=== PATIENT | female | born 1995 | race Caucasian/White ===

== ENCOUNTER → 2018-08-22 | Outpatient (CLI) | payer OTHER ==
[~2018-08-22] MED LIST: ACET-2267 PO; ALBU8.5H4 IH; AMOX250C PO; AZTH250C PO; Birth Control Pill; CEFD300C3 PO; CEFU500T PO; CEPH-506 PO; CEPH-507 PO; CEPH500C PO; CETI10CA PO; CETI10TA17 PO; CETI5TAB6 PO; CITA10TA PO; CODE118S2 PO; CYCL10TA9 PO; D-ME118S7 PO; FAMO-119 PO; FERR325T18 PO; FLT05NA16 NSEACH; FLUT16SP22 NS; IBUP-1773 PO; KETO10TA77 PO; LEVO500T69 PO; LORA10CA PO; METH4TAB PO; NITR-65 PO; ONDA-42 SL; ONDA4TAB8 PO; ONDN4T PO; OXYC-464 PO; PHEN200T27 PO; PRCD5U PO; PRD20T PO; PRED10TA PO; PROM50TA3 PO; RANI25VI2 IJ; SULF1TAB35 PO; TRAM50TA2 PO; [UNRECOGNIZED DRUG - CODE] PO
--- NOTE | 2018-08-22 12:47 | Diagnostic Imaging Report ---
PROCEDURE: MRI left joint lower extremity without contrast. TECHNIQUE: Multiplanar, multisequence non contrast-enhanced MRI of the left lower extremity was accomplished. INDICATION: Injury, knee pain. COMPARISON: There are no prior studies available for comparison. FINDINGS: The proton dense sagittal series shows the anterior and posterior cruciate ligaments to be intact. There is no evidence for a tear of the infrapatellar tendon, but there is an area of abnormal signal involving the infrapatellar tendon near its attachment to the patella on the proton dense fat-saturated series. This could be due to edema/inflammation due to a recent strain of the tendon. The quadriceps tendon is unremarkable. The collateral ligaments, the biceps femoris tendon, and the iliotibial band are unremarkable. There is no sign of a tear of either the medial or lateral retinaculum. There is no abnormal signal arising from either meniscus to indicate a tear. The knee joint is well maintained, and there is no abnormal signal arising from the osseous structures that would indicate bone edema or a fracture. There is no sign of a joint effusion or of a Finn's cyst. IMPRESSION: 1. The small area of altered signal about the infrapatellar tendon near its attachment to the inferior pole of the patella does suggest edema/inflammation. This may be related to a recent strain of the tendon. The tendon itself seems to be intact. 2. The other major ligaments and tendons are unremarkable for an acute abnormality. 3. There is no evidence for a tear of either meniscus. 4. There is no sign of an acute bony injury. Dictated by: Dictated on workstation # [id number]
== END ==
LOC: RAD 10:55
PROVIDERS: ATTEND Nurse Practitioner Family
DX: S89.92XA Unspecified injury of left lower leg, initial encounter (principal); R93.7 Abnormal findings on diagnostic imaging of other parts of musculoskeletal system
CPT/HCPCS: 73721

== ENCOUNTER 2018-11-07 10:31 | Outpatient (RCR) | payer BC ==
[2018-11-09] MEDS ORDERED: OXYC1TAB87 PO (13:17)
== END 2019-02-05 | disposition home or self-care (01) ==
LOC: LAB 10:31
PROVIDERS: ATTEND Family Medicine
DX: R79.89 Other specified abnormal findings of blood chemistry (principal)
CPT/HCPCS: 36415; 84702

== ENCOUNTER 2018-11-09 10:55 | Emergency (ER) | payer BC ==
[~2018-11-09] VITALS: Ht 154.9 cm; Wt 68.0 kg
--- OUTSIDE RECORDS SUMMARY | 2018-11-09 11:00 | XMS REPORT ---
Author Author DERIC DOHERTY Organization [facility] Address [address] [place] [address] Care Team Providers Care Liaison Planner Name Role Phone DERIC DOHERTY Unavailable PROBLEMS Type Condition ICD9-CM Code UZC47-II Code Onset Dates Condition Status SNOMED Code Problem control counseling Z30.9 Active 75384964 Problem Intractable migraine without status migrainosus, unspecified migraine type G43.919 Active 432982989 Problem Menorrhagia with regular cycle N92.0 Active 413452596 Problem Other specified bacterial agents as the cause of diseases classified elsewhere B96.89 Active 44027756 Problem Acute vaginitis N76.0 Active 601211470 Problem Seasonal allergic rhinitis due to other allergic trigger J30.89 Active 752018909 Problem Major depressive disorder with single episode, remission status unspecified F32.9 Active 14735009 ALLERGIES No Information ENCOUNTERS Encounter Location Date Diagnosis [place] [address] [address] Aug, Left knee injury S89.92XA [facility] [address] [place] [id number] [place] [address] Jul, [facility] [address] [place] [place] [id number] [place] [address] 1731 Jul, [facility] [address] [place] [id number] [place] [address] Jul, [facility] [address] [address] Jul, Acute pain of left knee M25.[address] [facility] [address] [place] [place] [id number] [place] [address] Jun, Intractable migraine without status migrainosus, unspecified migraine type G43.919 [place] [id number] [place] [address] May, Menorrhagia with regular cycle N92.0 and control counseling Z30.[address] [facility] [address] [address] Jan, Dysuria R30.[address] [facility] [address] [address] Dec, Seasonal allergic rhinitis, unspecified trigger J30.[address] [facility] [address] [address] 07 Nov, 2017 Viral gastroenteritis A08.[address] [facility] [address] [address] Oct, Strep pharyngitis J02.0 ; Sore throat J02.9 and Fever R50.[address] [facility] [address] [address] 15 Aug, 2017 Bronchitis J40 and Acute non-recurrent frontal sinusitis J01.[address] [address] 13 Jun, [address] [facility] [address] [address] Jun, Bronchitis J[address] [facility] [address] [address] May, Tinea corporis B35.[address] [address] Mar, Visit for TB skin test Z11.1 and Wellness examination Z00.[address] [facility] [address] [address] February, Seasonal allergic rhinitis due to other allergic trigger J30.[address] [facility] [address] [place] [address] Dec, Body aches R52 and Sinus pressure J34.89 [place] [address] [address] Nov, [place] [address] [address] Nov, depression F53 and ADHD, predominantly inattentive type F90.0 [place] [address] [address] Oct, Major depressive disorder with single episode, remission status unspecified F32.9 [facility] [place] [address] [address] Oct, Body aches R52 ; Gastroenteritis K52.9 and Dysuria R30.[address] [facility] [address] [address] Sep, Sore throat J02.9 and Strep pharyngitis J02.[address] [facility] [address] [address] Sep, Sore throat J02.9 and Bronchitis J40 [place] [address] [place] [id number] [place] [address] May, Major depressive disorder with single episode, remission status unspecified F32.9 ; Acute vaginitis N76.0 ; Other specified bacterial agents as the cause of diseases classified elsewhere B96.89 and control counseling Z30.9 [facility] [address] [place] [id number] [place] [address] May, Right upper quadrant pain R10.11 and Dysuria R30.0 [facility] [place] [id number] [place] [address] May, Sore throat J02.[address] [facility] [place] [address] [address] Mar, Abscess L02.91 [facility] [address] [address] Jul, [facility] [address] [place] [id number] [place] [address]51[address] Jul, test negative Z32.02 [facility] [address] [place] [place] [id number] [place] [address] Jul, URI (upper respiratory infection) J06.9 [facility] [address] [place] [place] [id number] [place] [address] May, Encounter for PPD test V74.1 [facility] [address] [place] [place] [id number] [place] [address]- [address] Apr, Dysuria 788.1 [facility] [address] [place] [place] [id number] [place] [address] Jan, [facility] [address] [place] [place] [id number] [place] [address] Jan, [facility] [id number] [place] [address] Dec, [facility] [address] [place] [place] [id number] [place] [address]- [address] Dec, [facility] [address] [address] Dec, [facility] [id number] [place] [address] Dec, [facility] [id number] [place] [address]- [address] Nov, [facility] [id number] [place] [address]- [address] Nov, [facility] [address] [address] Nov, [facility] [place] [facility] [address] [facility] [id number] [place] [address] 18 Nov, 2014 [facility] [place] [facility] [address] [id number] [place] [address]- 47[address] Nov, 2014 [facility] [place] [facility] [address] [id number] [place] [address]- [address] Nov, 2014 [facility] [place] [facility] [address] [id number] [place] [address]- [address] Nov, 2014 [facility] [place] [facility] [address] [id number] [place] [address]- 3677 Nov, 2014 [facility] [place] [facility] [address] [id number] [place] [address]- 0186 Nov, 2014 [facility] [place] [facility] [address] [id number] [place] [address]- 138[address] Nov, 2014 [facility] [place] [facility] [address] [id number] [place] [address]- 29[address] Oct, [facility] [place] [facility] [address] [id number] [place] [address]- 1630 Oct, [facility] [place] [facility] [address] [id number] [place] [address]- [address] Aug, [facility] [place] [facility] [address] [id number] [place] [address]- 35[address] Aug, [facility] [place] [facility] [address] [id number] [place] [address]- 97[address] Jul, [facility] [place] [facility] [address] [id number] [place] [address]- 4767 Jul, [facility] [place] [facility] [address] [id number] [place] [address]- 74[address] Jul, [facility] [place] [facility] [address] [id number] [place] [address]- 56[address] Jul, [facility] [place] [facility] [address] [id number] [place] [address]- 53[address] Jul, [facility] [place] [facility] [address] [id number] [place] [address]- 6[address] Jul, [facility] [place] [facility] [address] [id number] [place] [address]- 0934 Jul, [facility] [place] [facility] [address] [id number] [place] [address]- 9796 Jun, [facility] [place] [facility] [address] [id number] [place] [address]- 30[address] Jun, [facility] [place] [facility] [address] [id number] [place] [address]- 5752 Jun, [facility] [place] [facility] [address] [id number] [place] [address]- 8209 Jun, [facility] [place] [facility] [address] [id number] [place] [address]- 5318 Jun, [facility] [place] [facility] [address] [id number] [place] [address]- 1338 Jun, [facility] [place] [facility] [address] [id number] [place] [address]- 6724 Jun, [facility] [place] [facility] [address] [id number] [place] [address]- 4928 May, [facility] [place] [facility] [address] [id number] [place] [address]- 8216 May, [facility] [place] [facility] [address] [id number] [place] [address]- 7235 May, [facility] [place] [facility] [address] [id number] [place] [address]- 8023 May, [facility] [place] [facility] [address] [id number] [place] [address]- 9904 May, [facility] [place] [facility] [address] [id number] [place] [address]- 3025 May, [facility] [place] [facility] [address] [id number] [place] [address]- 0369 May, [facility] [address] [id number] [place] [address]- 89[address] May, [facility] [place] [facility] [address] [id number] [place] [address]- 0188 Mar, [facility] [address] [id number] [place] [address]- 9542 Mar, [facility] [place] [facility] [address] [id number] [place] [address]- 35[address] February, [facility] [address] [id number] [place] [address]- 3271 February, [facility] [address] [id number] [place] [address]- 2017 February, [facility] [address] [id number] [place] [address]- 5[address] February, [facility] [address] [id number] [place] [address]- 9595 February, [facility] [place] [facility] [address] [id number] [place] [address]- 6[address] February, [facility] [address] [id number] [place] [address]- [address]861 Jan, [facility] [place] [facility] [address] [id number] [place] [address]- 3363 Jan, [facility] [place] [facility] [address] [id number] [place] [address]- 0453 Dec, [facility] [place] [facility] [address] [id number] [place] [address]- 75[address] Dec, [facility] [place] [facility] [address] [id number] [place] [address]- 9190 Dec, [facility] [place] [facility] [address] [id number] [place] [address]- 6655 Dec, [facility] [address] [place] [id number] [address] Dec, [facility] [address] [address]- [address] Dec, [facility] [address] [address]- [address] Nov, [facility] [address] [address]- [address] Nov, [facility] [address] [address]- 10[address] Mar, [facility] [address] [address]- [address] Jan, [facility] [address] [address]- 7[address] Dec, [facility] [address] [address]- 77[address] Jul, [facility] [address] [address]- 18[address] Jul, [facility] [address] [address]- [address] Jul, IMMUNIZATIONS No Known Immunizations SOCIAL HISTORY Never Assessed REASON FOR VISIT PLAN OF CARE VITAL SIGNS MEDICATIONS Unknown Medications RESULTS Name Result Date Reference Range MRI : Knee, Left w/o contrast PROCEDURES No Known procedures INSTRUCTIONS MEDICATIONS ADMINISTERED No Known Medications MEDICAL (GENERAL) HISTORY Type Description Date Medical History asthma Medical History breast fibrocystic disease Medical History cholecystitis (05/2015) Medical History Recurrent streptococcal tonsillitis Surgical History No know Surgical history Hospitalization History childbirth Hospitalization History Lacerated kidney and liver 2008
--- OUTSIDE RECORDS SUMMARY | 2018-11-09 11:00 | XMS REPORT ---
Author Author LYNSEY JONES [facility] Address [address] [place] [address] Care Team Providers Care Television Receiver Analyzer Name Role Phone LYNSEY JONES Unavailable PROBLEMS Type Condition ICD9-CM Code SYD83-PP Code Onset Dates Condition Status SNOMED Code Problem control counseling Z30.9 Active 05704011 Problem Intractable migraine without status migrainosus, unspecified migraine type G43.919 Active 582090786 Problem Menorrhagia with regular cycle N92.0 Active 482664353 Problem Other specified bacterial agents as the cause of diseases classified elsewhere B96.89 Active 19532583 Problem Acute vaginitis N76.0 Active 720772480 Problem Seasonal allergic rhinitis due to other allergic trigger J30.89 Active 596095083 Problem Major depressive disorder with single episode, remission status unspecified F32.9 Active 29928938 ALLERGIES Substance Reaction Event Type Date Status Hydrocodone Bitartrate Unknown Drug Allergy Aug, Active ENCOUNTERS Encounter Location Date Diagnosis [facility] [id number] [place] [address]199 Aug, Patellar tendonitis of left knee M76.52 [facility] [id number] [place] [address]20 -8283 Aug, Patellar tendonitis of left knee M76.52 [facility] [id number] [place] [address] 12102- 3766 Aug, Left knee injury S89.92XA [facility] [id number] [place] [address] 12280- 0376 Jul, [facility] [id number] [place] [address] 31821- 7788 Jul, [facility] [address] [address] Jul, [place] [address] [address] Jul, Acute pain of left knee M25.562 [facility] [place] [address] [address] 20 Jun, 2018 Intractable migraine without status migrainosus, unspecified migraine type G43.919 [place] [address] [address] May, Menorrhagia with regular cycle N92.0 and control counseling Z30.9 [facility] [place] [address] [address] Jan, Dysuria R30.0 [facility] [address] [address] Dec, Seasonal allergic rhinitis, unspecified trigger J30.2 [facility] [address] [address] Nov, Viral gastroenteritis A08.4 [facility] [place] [address] [address] Oct, Strep pharyngitis J02.0 ; Sore throat J02.9 and Fever R50.9 [facility] [place] [address] [address] Aug, Bronchitis J40 and Acute non-recurrent frontal sinusitis J01.10 [place] [address] [address]- [address] Jun, [facility] [place] [address] [address]67 13 Jun, 2017 Bronchitis J40 [facility] [place] [address] 240[address] May, Tinea corporis B35.4 [place] [id number] [place] [address] 28291- 6733 Mar, Visit for TB skin test Z11.1 and Wellness examination Z00.00 [facility] [place] [id number] [place] [address]24 [address]68 February, Seasonal allergic rhinitis due to other allergic trigger J30.89 [facility] [place] [address] [address] Dec, Body aches R52 and Sinus pressure J34.89 [place] [address] [address] 2895 Nov, [address] [address] 09 Nov, 2016 depression F53 and ADHD, predominantly inattentive type F90.[address] [address]- [address] Oct, Major depressive disorder with single episode, remission status unspecified F32.9 [facility] [address] [address] Oct, Body aches R52 ; Gastroenteritis K52.9 and Dysuria R30.0 [facility] [place] [id number] [place] [address]21 -5406 Sep, Sore throat J02.9 and Strep pharyngitis J02.0 [facility] [place] [id number] [place] [address] -0233 Sep, Sore throat J02.9 and Bronchitis J40 [address] [address]- 67[address] May, Major depressive disorder with single episode, remission status unspecified F32.9 ; Acute vaginitis N76.0 ; Other specified bacterial agents as the cause of diseases classified elsewhere B96.89 and control counseling Z30.9 [facility] [place] [address] [place] [address] May, Right upper quadrant pain R10.11 and Dysuria R30.0 [facility] [id number] [place] [address]9696 May, Sore throat J02.9 [facility] [id number] [place] [address]75 -2301 Mar, Abscess L02.91 [facility] [address] 27973- 0338 Jul, [facility] [address] [address]- 9142 Jul, test negative Z32.02 [facility] [address] [address]36- 4749 Jul, URI (upper respiratory infection) J06.9 [facility] [address] 7[address]26- 4215 May, Encounter for PPD test V74.1 [facility] [address] 35333- 9273 Apr, Dysuria 788.1 [facility] [id number] [place] [address] 15803- 5547 Jan, [facility] [id number] [place] [address] 13748- 6384 Jan, [facility] [id number] [place] [address] 39412- 0300 Dec, [facility] [address] 9[address]23- [address]65 Dec, [facility] [address] 13058- 1158 Dec, [facility] [id number] [place] [address] 23821- 6241 Dec, [facility] [place] [facility] [address] [id number] [place] [address]- 7587 Nov, 2014 [facility] [place] [facility] [address] [id number] [place] [address]- 0090 Nov, 2014 [facility] [place] [facility] [address] [id number] [place] [address]- 3745 Nov, 2014 [facility] [place] [facility] [address] [id number] [place] [address]- 1281 Nov, 2014 [facility] [place] [facility] [address] [id number] [place] [address]- 9336 Nov, 2014 [facility] [place] [facility] [address] [id number] [place] [address]- 7978 Nov, 2014 [facility] [place] [facility] [address] [facility] [id number] [place] [address]- 7266 Nov, 2014 [facility] [place] [facility] [address] [id number] [place] [address]- 7978 Nov, 2014 [facility] [place] [facility] [address] [id number] [place] [address]- 0912 Nov, 2014 [facility] [place] [facility] [address] [facility] [id number] [place] [address]- 3693 Nov, [facility] [place] [facility] [address] [facility] [id number] [place] [address]- 8758 Oct, [facility] [place] [facility] [address] [id number], [place] [address] 1842 Oct, [facility] [place] [facility] [address] [id number] [place] [address]- 0039 Aug, [facility] [place] [facility] [address] [id number] [place] [address]- 1944 Aug, [facility] [place] [facility] [address] [facility] [id number] [place] [address]- 6996 Jul, [facility] [place] [facility] [address] [id number] [place] [address]- 3880 Jul, [facility] [place] [facility] [address] [id number] [place] [address]- 7020 Jul, [facility] [place] [facility] [address] [id number] [place] [address]- 7932 Jul, [facility] [place] [facility] [address] [id number] [place] [address]- 2809 Jul, [facility] [place] [facility] [address] [id number] [place] [address]- 4816 Jul, [facility] [place] [facility] [address] [id number] [place] [address]- 8620 Jul, [facility] [place] [facility] [address] [id number] [place] [address]- 4126 22 Jun, 2014 [facility] [place] [facility] [address] [id number] [place] [address]- 4409 17 Jun, 2014 [facility] [place] [facility] [address] [id number] [place] [address]- 6795 17 Jun, 2014 [facility] [place] [facility] [address] [id number] [place] [address]- 6527 11 Jun, 2014 [facility] [place] [facility] [address] [id number] [place] [address]- 2334 Jun, [facility] [place] [facility] [address] [id number] [place] [address]- 4198 Jun, [facility] [place] [facility] [address] [id number] [place] [address]- 2542 Jun, [facility] [place] [facility] [address] [id number] [place] [address]- 5478 May, [facility] [place] [facility] [address] [id number] [place] [address]- 2322 May, [facility] [place] [facility] [address] [id number] [place] [address]- 1344 May, [facility] [place] [facility] [address] [id number] [place] [address]- 5088 May, [facility] [place] [facility] [address] [id number] [place] [address]- 4408 May, [facility] [place] [facility] [address] [id number] [place] [address]- 9968 May, [facility] [place] [facility] [address] [id number] [place] [address]- 3771 May, [facility] [place] [facility] [address] [id number] [place] [address]- 5988 May, [facility] [place] [facility] [address] [id number] [place] [address]- 4103 Mar, [facility] [place] [facility] [address] [id number] [place] [address]- 4739 Mar, [facility] [place] [facility] [address] [id number] [place] [address]- 4818 February, [facility] [place] [facility] [address] [id number] [place] [address]- 9142 February, [facility] [place] [facility] [address] [id number] [place] [address]- 4696 February, [facility] [place] [facility] [address] [id number] [place] [address]- 3124 February, [facility] [place] [facility] [address] [id number] [place] [address]- 5530 February, [facility] [place] [facility] [address] [id number] [place] [address]- 4162 February, [facility] [place] [facility] [address] [id number] [place] [address]- 3572 Jan, [facility] [place] [facility] [address] [id number] [place] [address]- 8469 Jan, [facility] [place] [facility] [address] [id number], [place] [address]- 8676 Dec, [facility] [address] [facility] [id number], [place] [address]- [address]856 Dec, [facility] [address] [facility] [id number], [place] [address]- 7006 Dec, [facility] [address] [facility] [id number], [place] [address]- 9216 Dec, [facility] [address] [facility] [id number], [place] [address] 2546 Dec, [facility] [address] [facility] [id number], [place] [address]- 9176 Dec, [facility] [address] [facility] [id number], [place] [address]- 1206 Nov, [facility] [address] [facility] [id number], [place] [address]- 2656 Nov, [facility] [address] [facility] [id number], [place] [address]- 8046 Mar, [facility] [address] [facility] [id number], [place] [address]- 6706 Jan, [facility] [address] [facility] [id number], [place] [address] 2546 Dec, [facility] [address] [facility] [id number], [place] [address]- 9396 Jul, [facility] [address] [facility] [id number], [place] [address]- 6649 Jul, [facility] [address] [facility] [id number], [place] [address]- 1436 Jul, IMMUNIZATIONS No Known Immunizations SOCIAL HISTORY Never Assessed REASON FOR VISIT Pt is here for a follow up on her left knee pain. Pt reports that today she continues to have pain and has been continuing her physical therapy at this time. Pt feels that the therapy has been helping however she was up on it recently for her wedding. Following the wedding it had increased swelling and she did see decreased improvement at therapy from it. Pt has one therapy visit left that has been authorized and she stated that therapy would need a new order for visits to continue. MICHELL PLAN OF CARE Activity Details Follow Up Recheck on 09-17-18 at 10:00 am. Reason: VITAL SIGNS Height 61 in 2018-09-10 Weight 156 lbs 2018-09-10 Heart Rate 86 bpm 2018-09-10 Respiratory Rate 16 2018-09-10 BMI 29.47 kg/m2 2018-09-10 Blood pressure systolic 108 mmHg 2018-09-10 Blood pressure diastolic 62 mmHg 2018-09-10 MEDICATIONS Medication Instructions Dosage Frequency Start Date End Date Duration Status Albuterol Sulfate 90 mcg/actuation inhale 2 puffs by Inhalation route every 4 hours as needed PRN for shortness of breath Nov, Active Albuterol Sulfate (2.5 MG/3ML) 0.083% Inhalation 4 times a day 3 ml 6h Jun, Active Acetaminophen 500 MG Orally every 6 hrs 1 capsule as needed 6h Active Aleve 220 MG Orally every 12 hrs 1 tablet with food or milk as needed 12h Active Excedrin Migraine 250-250-65 MG Orally Once a day 2 tablets 24h 30 day(s) Active Tri-Sprintec 0.18/0.215/0.25 MG-35 MCG Orally Once a day 1 tablet 24h May, 28 day(s) Active RESULTS No Results PROCEDURES No Known procedures INSTRUCTIONS MEDICATIONS ADMINISTERED No Known Medications MEDICAL (GENERAL) HISTORY Type Description Date Medical History asthma Medical History breast fibrocystic disease Medical History cholecystitis (05/2015) Medical History Recurrent streptococcal tonsillitis Surgical History No Surgical history information Hospitalization History childbirth Hospitalization History Lacerated kidney and liver 2008
--- OUTSIDE RECORDS SUMMARY | 2018-11-09 11:00 | XMS REPORT ---
Author Author JET TORRES [facility] Address [address] [place] [address] Phone Unavailable Care Team Providers Care Reimbursement Consultant Name Role Phone JET TORRES Unavailable Unavailable PROBLEMS Type Condition ICD9-CM Code PKP40-NU Code Onset Dates Condition Status SNOMED Code Problem control counseling Z30.9 Active 70483948 Problem Intractable migraine without status migrainosus, unspecified migraine type G43.919 Active 125811059 Problem Menorrhagia with regular cycle N92.0 Active 929041038 Problem Other specified bacterial agents as the cause of diseases classified elsewhere B96.89 Active 24148085 Problem Acute vaginitis N76.0 Active 601502908 Problem Seasonal allergic rhinitis due to other allergic trigger J30.89 Active 949070711 Problem Major depressive disorder with single episode, remission status unspecified F32.9 Active 14887348 ALLERGIES No Information ENCOUNTERS Encounter Location Date Diagnosis [facility] [address] [address] Jul, [facility] [id number] [place] [address] Jul, [facility] [id number] [place] [address] Jul, [facility] [id number] [place] [address]690- 7151 Jul, Acute pain of left knee M25.562 [facility] [address] [address] Jun, Intractable migraine without status migrainosus, unspecified migraine type G43.919 [facility] [id number] [place] [address] May, Menorrhagia with regular cycle N92.0 and control counseling Z30.9 [facility]note 3] [address] [address] Jan, Dysuria R30.0 [facility] [address] [address] Dec, Seasonal allergic rhinitis, unspecified trigger J30.2 [facility] [address] [address] 07 Nov, 2017 Viral gastroenteritis A08.4 [facility] [address] [address] Oct, Strep pharyngitis J02.0 ; Sore throat J02.9 and Fever R50.9 [facility] [address] [address] 15 Aug, 2017 Bronchitis J40 and Acute non-recurrent frontal sinusitis J01.10 [place] [address] [address] 13 Jun, 2017 [facility] [address] [address] Jun, Bronchitis J40 [facility] [address] [address] May, Tinea corporis B35.[address] [address] 19 Mar, 2017 Visit for TB skin test Z11.1 and Wellness examination Z00.00 [facility] [address] [address] February, Seasonal allergic rhinitis due to other allergic trigger J30.89 [facility] [address] [address] Dec, Body aches R52 and Sinus pressure J34.[address] [address] Nov, [place] [id number] [place] [address]67[address] 1498 Nov, depression F53 and ADHD, predominantly inattentive type F90.0 [place] [id number] [place] [address]31[address] 1613 Oct, Major depressive disorder with single episode, remission status unspecified F32.9 [facility]note 3] [address] [address] Oct, Body aches R52 ; Gastroenteritis K52.9 and Dysuria R30.0 [facility] [place] [address] [address] Sep, Sore throat J02.9 and Strep pharyngitis J02.0 [facility] [place] [address] [address] Sep, Sore throat J02.9 and Bronchitis J40 [place] [id number] [place] [address] May, Major depressive disorder with single episode, remission status unspecified F32.9 ; Acute vaginitis N76.0 ; Other specified bacterial agents as the cause of diseases classified elsewhere B96.89 and control counseling Z30.9 [facility] [place] [id number] [place] [address] May, Right upper quadrant pain R10.11 and Dysuria R30.0 [facility] [place] [id number] [place] [address] May, Sore throat J02.9 [facility] [place] [id number] [place] [address] Mar, Abscess L02.91 [place] [id number] [place] [address]- [address] Jul, [place] [id number] [place] [address]682- 3291 Jul, test negative Z32.02 [facility] [id number] [place] [address]- 224[address] Jul, URI (upper respiratory infection) J06.9 [facility] [id number] [place] [address]- 7930 May, Encounter for PPD test V74.1 [facility] [id number] [place] [address]- 4237 Apr, Dysuria 788.1 [facility] [id number] [place] [address]40- [address] Jan, [facility] [id number] [place] [address]246- [address] Jan, [facility] [id number] [place] [address]32- 6254 Dec, [facility] [id number] [place] [address] 81658- 4479 Dec, [facility] [id number] [place] [address]30- 3347 Dec, [facility] [id number] [place] [address] 37074- 4784 Dec, [facility] [id number] [place] [address] 61233- 3271 Nov, [facility] [id number] [place] [address] 82254- 6[address] Nov, [facility] [id number] [place] [address] 98364- 9641 Nov, [facility] [id number] [place] [address] 88886- 5489 Nov, [facility] [id number] [place] [address] 57364- 6804 Nov, 2014 [facility] [place] [facility] [address] [id number] [place] [address]- [address] Nov, 2014 [facility] [place] [facility] [address] [id number] [place] [address] Nov, 2014 [facility] [place] [facility] [address] [facility] [id number] [place] [address]- 7646 Nov, 2014 [facility] [place] [facility] [address] [id number] [place] [address]- 8241 Nov, 2014 [facility] [place] [facility] [address] [id number] [place] [address]- 3000 Nov, 2014 [facility] [place] [facility] [address] [facility] [id number] [place] [address]- 8621 Oct, [facility] [place] [facility] [address] [facility] [id number] [place] [address]- 6633 Oct, [facility] [place] [facility] [address] [facility] [id number] [place] [address]- 8170 Aug, [facility] [place] [facility] [address] [facility] [id number] [place] [address]- 4610 Aug, [facility] [place] [facility] [address] [facility] [id number] [place] [address]- 0629 Jul, [facility] [place] [facility] [address] [facility] [id number] [place] [address]- 6557 Jul, [facility] [place] [facility] [address] [facility] [id number] [address]- [address] Jul, [facility] [place] [facility] [address] [id number] [place] [address]- 8085 Jul, [facility] [place] [facility] [address] [facility] [id number] [place] [address]- 1235 Jul, [facility] [place] [facility] [address] [facility] [id number] [place] [address]- 9915 Jul, [facility] [place] [facility] [address] [id number] [place] [address]- 3347 Jul, [facility] [place] [facility] [address] [id number] [place] [address]- 1056 22 Jun, 2014 [facility] [place] [facility] [address] [id number] [place] [address] 2546 17 Jun, 2013 [facility] [place] [facility] [address] [id number] [place] [address] 2546 17 Jun, 2013 [facility] [place] [facility] [address] [id number] [place] [address] 2545 Jun, 2013 [facility] [place] [facility] [address] [id number] [place] [address]- 5406 Jun, [facility] [place] [facility] [address] [id number] [place] [address]- 4886 Jun, [facility] [place] [facility] [address] [id number] [place] [address]- 4181 Jun, [facility] [place] [facility] [address] [id number] [place] [address]- 0110 May, [facility] [place] [facility] [address] [id number] [place] [address]- 9159 May, [facility] [place] [facility] [address] [id number] [place] [address]- 6181 May, [facility] [place] [facility] [address] [id number] [place] [address]- 4989 May, [facility] [place] [facility] [address] [id number] [place] [address]- 3444 May, [facility] [place] [facility] [address] [id number] [place] [address]- 7679 May, [facility] [place] [facility] [address] [id number] [place] [address]- 6812 May, [facility] [place] [facility] [address] [id number] [place] [address]- 1654 May, [facility] [place] [facility] [address] [id number] [place] [address]- 1741 Mar, [facility] [place] [facility] [address] [id number] [place] [address]- 8390 Mar, [facility] [place] [facility] [address] [id number] [place] [address]- 9865 February, [facility] [place] [facility] [address] [id number] [place] [address]- 5911 February, [facility] [place] [facility] [address] [id number] [place] [address]- 1844 February, [facility] [place] [facility] [address] [id number] [place] [address]- 5065 February, [facility] [place] [facility] [address] [id number] [place] [address]- 7186 February, [facility] [place] [facility] [address] [id number] [place] [address]- 7173 February, [facility] [place] [facility] [address] [id number] [place] [address]- 5090 Jan, [facility] [place] [facility] [address] [id number] [place] [address]- 6592 Jan, [facility] [place] [facility] [address] [id number] [place] [address]- 4384 Dec, [facility] [place] [facility] [address] [id number] [address]- 8[address] Dec, [facility] [place] [facility] [address] [id number] [place] [address]- 3884 Dec, [facility] [place] [facility] [address] [id number] [place] [address]- 4246 Dec, [facility] [place] [facility] [address] [id number] [place] [address]- 1134 Dec, [facility] [place] [facility] [address] [id number] [address]- [address] Dec, [facility] [address] [id number] [address]- 8682 Nov, [facility] [address] [address]- [address] Nov, [facility] [address] [id number] [address]- [address] Mar, [facility] [address] [address]- 9[address] Jan, [facility] [address] [address]- 2529 Dec, [facility] [address] [address]- 4895 Jul, [facility] [address] [address]- [address] Jul, [facility] [address] [id number] [address]- 9931 Jul, IMMUNIZATIONS No Known Immunizations SOCIAL HISTORY Never Assessed REASON FOR VISIT Insurance Company PLAN OF CARE VITAL SIGNS MEDICATIONS Unknown Medications RESULTS No Results PROCEDURES No Known procedures INSTRUCTIONS MEDICATIONS ADMINISTERED No Known Medications MEDICAL (GENERAL) HISTORY Type Description Date Medical History asthma Medical History breast fibrocystic disease Medical History cholecystitis (05/2015) Medical History Recurrent streptococcal tonsillitis Surgical History No know Surgical history Hospitalization History childbirth Hospitalization History Lacerated kidney and liver 2008
--- OUTSIDE RECORDS SUMMARY | 2018-11-09 11:00 | XMS REPORT ---
Author Author LYNSEY JONES [facility] Address [address] [place] [address] Care Team Providers Care Veterinary Attendant Name Role Phone LYNSEY JONES Unavailable PROBLEMS Type Condition ICD9-CM Code YGO25-WN Code Onset Dates Condition Status SNOMED Code Problem control counseling Z30.9 Active 62505686 Problem Intractable migraine without status migrainosus, unspecified migraine type G43.919 Active 735154028 Problem Menorrhagia with regular cycle N92.0 Active 503337048 Problem Other specified bacterial agents as the cause of diseases classified elsewhere B96.89 Active 45896192 Problem Acute vaginitis N76.0 Active 439533664 Problem Seasonal allergic rhinitis due to other allergic trigger J30.89 Active 798659607 Problem Major depressive disorder with single episode, remission status unspecified F32.9 Active 07694673 ALLERGIES Substance Reaction Event Type Date Status Hydrocodone Bitartrate Unknown Drug Allergy Aug, Active ENCOUNTERS Encounter Location Date Diagnosis [facility] [id number] [place] [address] Aug, [facility] [address] [address] Aug, Patellar tendonitis of left knee M76.52 [facility] [id number] [place] [address] Aug, Left knee injury S89.92XA [facility] [address] [address] Jul, [facility] [id number] [place] [address] Jul, [facility] [address] [address] Jul, [facility] [id number] [place] [address] Jul, Acute pain of left knee M25.562 [facility] [id number] [place] [address] Jun, Intractable migraine without status migrainosus, unspecified migraine type G43.919 [place] [address] [address] May, Menorrhagia with regular cycle N92.0 and control counseling Z30.9 [facility] [address] [address] Jan, Dysuria R30.0 [facility] [address] [address] Dec, Seasonal allergic rhinitis, unspecified trigger J30.2 [facility] [address] [address] Nov, Viral gastroenteritis A08.4 [facility] [address] [address] Oct, Strep pharyngitis J02.0 ; Sore throat J02.9 and Fever R50.9 [facility] [address] [address] Aug, Bronchitis J40 and Acute non-recurrent frontal sinusitis J01.10 [place] [id number] [place] [address] Jun, [facility] [address] [address] Jun, Bronchitis J40 [facility] [address] [address] 11 May, 2017 Tinea corporis B35.4 [place] [address] [address] Mar, Visit for TB skin test Z11.1 and Wellness examination Z00.00 [facility] [place] [address] [address] February, Seasonal allergic rhinitis due to other allergic trigger J30.89 [facility] [place] [address] [address] Dec, Body aches R52 and Sinus pressure J34.89 [place] [address] [address] Nov, [place] [address] [address] Nov, depression F53 and ADHD, predominantly inattentive type F90.0 [place] [address] [address] Oct, Major depressive disorder with single episode, remission status unspecified F32.9 [facility] [place] [address] [address] Oct, Body aches R52 ; Gastroenteritis K52.9 and Dysuria R30.0 [facility] [address] [address] Sep, Sore throat J02.9 and Strep pharyngitis J02.0 [facility] [place] [address] [address] Sep, Sore throat J02.9 and Bronchitis J40 [place] [address] [address] May, Major depressive disorder with single episode, remission status unspecified F32.9 ; Acute vaginitis N76.0 ; Other specified bacterial agents as the cause of diseases classified elsewhere B96.89 and control counseling Z30.9 [facility] [place] [address] [address] May, Right upper quadrant pain R10.11 and Dysuria R30.0 [facility] [address] [address] May, Sore throat J02.9 [facility] [id number] [place] [address] Mar, Abscess L02.91 [facility] [address] [address] Jul, [facility] [address] [address] Jul, test negative Z32.02 [facility] [address] [address] Jul, URI (upper respiratory infection) J06.9 [facility] [address] [address] May, Encounter for PPD test V74.1 [facility] [id number] [place] [address] Apr, Dysuria 788.1 [facility] [address] [address] Jan, [facility] [id number] [place] [address] Jan, [facility] [id number] [place] [address] Dec, [facility] [id number] [place] [address]- [address] Dec, [facility] [address] [address] Dec, [facility] [id number] [place] [address] Dec, [facility] [address] [place] [address] Nov, 2014 [facility] [place] [facility] [address] [id number] [place] [address] Nov, 2014 [facility] [place] [facility] [address] [id number] [place] [address] Nov, 2014 [facility] [place] [facility] [address] [id number] [place] [address]- [address] Nov, 2014 [facility] [place] [facility] [address] [id number] [place] [address]- 2547 Nov, 2014 [facility] [place] [facility] [address] [id number] [place] [address]- [address] Nov, 2014 [facility] [place] [facility] [address] [facility] [id number] [place] [address]- 9[address] Nov, 2014 [facility] [place] [facility] [address] [facility] [id number] [place] [address]- [address] Nov, 2014 [facility] [place] [facility] [address] [id number] [place] [address]- 1468 Nov, 2014 [facility] [place] [facility] [address] [facility] [id number] [place] [address]- 3[address] Nov, [facility] [place] [facility] [address] [facility] [id number] [place] [address]- 3703 Oct, [facility] [place] [facility] [address] [facility] [id number] [place] [address]- 25[address] Oct, [facility] [place] [facility] [address] [id number] [place] [address] Aug, [facility] [place] [facility] [address] [id number] [place] [address] 2546 Aug, [facility] [place] [facility] [address] [facility] [id number] [place] [address]- 25[address] Jul, [facility] [place] [facility] [address] [facility] [id number] [place] [address]- 6[address] Jul, [facility] [place] [facility] [address] [id number] [place] [address]- 67[address] Jul, [facility] [place] [facility] [address] [id number] [place] [address] Jul, [facility] [place] [facility] [address] [id number] [place] [address]- 8594 Jul, [facility] [place] [facility] [address] [id number] [place] [address]- 7678 Jul, [facility] [place] [facility] [address] [id number] [place] [address]- 117[address] Jul, [facility] [place] [facility] [address] [id number] [place] [address]- 66[address] 22 Jun, 2014 [facility] [place] [facility] [address] [id number] [place] [address]- [address] 17 Jun, 2014 [facility] [place] [facility] [address] [id number] [place] [address]- 5187 17 Jun, 2014 [facility] [place] [facility] [address] [id number] [place] [address]- 2508 11 Jun, 2014 [facility] [place] [facility] [address] [id number] [place] [address]- 1208 Jun, [facility] [place] [facility] [address] [id number], [place] [address] Jun, [facility] [place] [facility] [address] [id number], [place] [address]- [address] Jun, [facility] [place] [facility] [address] [id number] [place] [address]- 8951 May, [facility] [place] [facility] [address] [id number] [place] [address]- 44[address] May, [facility] [place] [facility] [address] [id number] [place] [address]- 1233 May, [facility] [place] [facility] [address] [id number] [place] [address]- 2784 May, [facility] [place] [facility] [address] [id number] [place] [address]- 3967 May, [facility] [place] [facility] [address] [id number] [place] [address]- 1103 May, [facility] [place] [facility] [address] [id number] [place] [address]- 7196 May, [facility] [place] [facility] [address] [id number] [place] [address]- 7810 May, [facility] [place] [facility] [address] [id number] [place] [address]- [address]34 Mar, [facility] [place] [facility] [address] [id number] [place] [address]- [address]295 Mar, [facility] [place] [facility] [address] [id number] [place] [address]- [address] February, [facility] [place] [facility] [address] [id number] [place] [address]- 9573 February, [facility] [place] [facility] [address] [id number] [place] [address] February, [facility] [place] [facility] [address] [id number] [place] [address]- 9663 February, [facility] [place] [facility] [address] [id number] [place] [address]- 6[address] February, [facility] [place] [facility] [address] [id number] [place] [address]- 7020 February, [facility] [place] [facility] [address] [id number] [place] [address]- 4815 Jan, [facility] [place] [facility] [address] [id number] [place] [address]- 365[address] Jan, [facility] [place] [facility] [address] [id number] [place] [address]- 9094 Dec, [facility] [address] [address] Dec, [facility] [address], [place] [address] Dec, [facility] [address] [address] Dec, [facility] [id number] [place] [address] 995935- 7979 Dec, [facility] [address] [address] Dec, [facility] [id number] [place] [address]- 35[address] Nov, [facility] [address] [address] Nov, [facility] [address], [place] [address]- [address] Mar, [facility] [address] [address]- [address] Jan, [facility] [address], [place] [address] Dec, [facility] [address], [place] [address]- [address] Jul, [facility] [address], [place] [address] Jul, [facility] [id number] [address] Jul, IMMUNIZATIONS No Known Immunizations SOCIAL HISTORY Never Assessed REASON FOR VISIT knee pain f/u; would like to discuss MRl (sent from [facility] [place] PLAN OF CARE Activity Details Follow Up 2 Weeks Reason: VITAL SIGNS Height 61 in 2018-08-26 Weight 156.2 lbs 2018-08-26 Temperature 98.4 degrees Fahrenheit 2018-08-26 Heart Rate 72 bpm 2018-08-26 Respiratory Rate 18 2018-08-26 BMI 29.51 kg/m2 2018-08-26 Blood pressure systolic 92 mmHg 2018-08-26 Blood pressure diastolic 64 mmHg 2018-08-26 MEDICATIONS Medication Instructions Dosage Frequency Start Date End Date Duration Status Acetaminophen 500 MG Orally every 6 hrs 1 capsule as needed 6h Active Tri-Sprintec 0.18/0.215/0.25 MG-35 MCG Orally Once a day 1 tablet 24h May, 28 day(s) Active Albuterol Sulfate (2.5 MG/3ML) 0.083% Inhalation 4 times a day 3 ml 6h Jun, Active Albuterol Sulfate 90 mcg/actuation inhale 2 puffs by Inhalation route every 4 hours as needed PRN for shortness of breath Nov, Active Aleve 220 MG Orally every 12 hrs 1 tablet with food or milk as needed 12h Active Excedrin Migraine 250-250-65 MG Orally Once a day 2 tablets 24h 30 day(s) Active RESULTS No Results PROCEDURES No Known procedures INSTRUCTIONS MEDICATIONS ADMINISTERED No Known Medications MEDICAL (GENERAL) HISTORY Type Description Date Medical History asthma Medical History breast fibrocystic disease Medical History cholecystitis (05/2015) Medical History Recurrent streptococcal tonsillitis Surgical History No know Surgical history Hospitalization History childbirth Hospitalization History Lacerated kidney and liver 2008
--- OUTSIDE RECORDS SUMMARY | 2018-11-09 11:01 | XMS REPORT ---
Author Author JET TORRES [facility] Address [address] [place] [address] Phone Unavailable Care Team Providers Care Smearer Name Role Phone JET TORRES Unavailable Unavailable PROBLEMS Type Condition ICD9-CM Code POA97-AK Code Onset Dates Condition Status SNOMED Code Problem control counseling Z30.9 Active 90082554 Problem Intractable migraine without status migrainosus, unspecified migraine type G43.919 Active 257281391 Problem Menorrhagia with regular cycle N92.0 Active 519077172 Problem Other specified bacterial agents as the cause of diseases classified elsewhere B96.89 Active 90796157 Problem Acute vaginitis N76.0 Active 242137464 Problem Seasonal allergic rhinitis due to other allergic trigger J30.89 Active 183536734 Problem Major depressive disorder with single episode, remission status unspecified F32.9 Active 12110188 ALLERGIES No Information ENCOUNTERS Encounter Location Date Diagnosis [facility] [address] [address] Jul, [facility] [id number] [place] [address] Jul, [facility] [id number] [place] [address] Jul, Acute pain of left knee M25.562 [facility] [id number] [place] [address] Jun, Intractable migraine without status migrainosus, unspecified migraine type G43.919 [facility] [id number] [place] [address] May, Menorrhagia with regular cycle N92.0 and control counseling Z30.9 [facility] [id number] [place] [address] Jan, Dysuria R30.0 [facility] [address] [address] Dec, Seasonal allergic rhinitis, unspecified trigger J30.2 [facility] [address] [address] 07 Nov, 2017 Viral gastroenteritis A08.4 [facility] [address] [address] Oct, Strep pharyngitis J02.0 ; Sore throat J02.9 and Fever R50.9 [facility] [address] [address] Aug, Bronchitis J40 and Acute non-recurrent frontal sinusitis J01.[address] [address] Jun, [facility] [address] [address] Jun, Bronchitis J40 [facility] [address] [address] May, Tinea corporis B35.[address] [address] Mar, Visit for TB skin test Z11.1 and Wellness examination Z00.00 [facility] [address] [address] February, Seasonal allergic rhinitis due to other allergic trigger J30.89 [facility] [address] [address] Dec, Body aches R52 and Sinus pressure J34.89 [place] [address] [address] Nov, [address] [address] Nov, depression F53 and ADHD, predominantly inattentive type F90.0 [place] [address] [address] Oct, Major depressive disorder with single episode, remission status unspecified F32.9 [facility] [place] [address] [address] Oct, Body aches R52 ; Gastroenteritis K52.9 and Dysuria R30.0 [facility] [place] [address] [address] Sep, Sore throat J02.9 and Strep pharyngitis J02.0 [facility] [place] [id number] [place] [address] Sep, Sore throat J02.9 and Bronchitis J40 [place] [address] [address] May, Major depressive disorder with single episode, remission status unspecified F32.9 ; Acute vaginitis N76.0 ; Other specified bacterial agents as the cause of diseases classified elsewhere B96.89 and control counseling Z30.9 [facility] [place] [id number] [place] [address] May, Right upper quadrant pain R10.11 and Dysuria R30.0 [facility] [place] [address] [address] May, Sore throat J02.9 [facility] [place] [id number] [place] [address] Mar, Abscess L02.91 [place] [address] [address] Jul, [place] [address] [address] Jul, test negative Z32.02 [facility] [id number] [place] [address] Jul, URI (upper respiratory infection) J06.9 [facility] [id number] [place] [address] May, Encounter for PPD test V74.1 [facility] [id number] [place] [address] Apr, Dysuria 788.1 [facility] [id number] [place] [address]- [address] Jan, [facility] [id number] [place] [address] Jan, [facility] [id number] [place] [address]683- 17[address] Dec, [facility] [id number] [place] [address] Dec, [facility] [address] [place] [address]89- [address]77 Dec, [facility] [id number] [place] [address]131[address] Dec, [facility] [id number] [place] [address]3- 79[address] Nov, [facility] [id number] [place] [address]57- [address] Nov, [facility] [address] [place] [address]14- [address] Nov, [facility] [id number] [place] [address]- 1839 Nov, [facility] [address] [place] [address] 72953- 6698 Nov, [facility] [id number] [place] [address]36- [address] Nov, 2014 [facility] [place] [facility] [address] [id number] [place] [address]- [address] Nov, 2014 [facility] [place] [facility] [address] [id number] [place] [address]- 8090 Nov, 2014 [facility] [place] [facility] [address] [facility] [id number] [place] [address]- [address] Nov, 2014 [facility] [place] [facility] [address] [id number] [place] [address]- 4[address] Nov, 2014 [facility] [place] [facility] [address] [facility] [id number] [place] [address]- 6661 Oct, [facility] [place] [facility] [address] [facility] [id number] [place] [address]- [address] Oct, [facility] [place] [facility] [address] [facility] [id number] [address] Aug, [facility] [place] [facility] [address] [facility] [id number] [place] [address]- [address] Aug, [facility] [place] [facility] [address] [facility] [id number] [place] [address]- 75[address] Jul, [facility] [place] [facility] [address] [facility] [id number] [place] [address]- 56[address] Jul, [facility] [place] [facility] [address] [facility] [id number] [address] Jul, [facility] [place] [facility] [address] [id number] [place] [address]- 0[address] Jul, [facility] [place] [facility] [address] [id number] [place] [address]- 395[address] Jul, [facility] [place] [facility] [address] [facility] [id number] [place] [address]- 15[address] Jul, [facility] [place] [facility] [address] [facility] [id number] [place] [address]- 71[address] Jul, [facility] [place] [facility] [address] [id number] [place] [address]- [address] 22 Jun, 2013 [facility] [place] [facility] [address] [id number] [facility] [place] [address]- [address] 17 Jun, 2013 [facility] [place] [facility] [address] [id number] [place] [address]- 2546 17 Jun, 2013 [facility] [place] [facility] [address] [id number] [place] [address] 2546 11 Jun, 2013 [facility] [place] [facility] [address] [id number] [place] [address] 2544 Jun, 2013 [facility] [place] [facility] [address] [id number] [place] [address]- [address]23 Jun, 2013 [facility] [place] [facility] [address] [id number] [place] [address]- 2987 Jun, [facility] [place] [facility] [address] [id number] [place] [address]- 1539 May, [facility] [place] [facility] [address] [id number] [place] [address]- 4438 May, [facility] [place] [facility] [address] [id number] [place] [address]- 1877 May, [facility] [place] [facility] [address] [id number] [place] [address]- 3691 May, [facility] [place] [facility] [address] [id number] [place] [address]- 7893 May, [facility] [place] [facility] [address] [id number] [place] [address]- 7044 May, [facility] [place] [facility] [address] [id number] [place] [address]- 2440 May, [facility] [place] [facility] [address] [id number] [place] [address]- 9936 May, [facility] [place] [facility] [address] [id number] [place] [address]- 4259 Mar, [facility] [place] [facility] [address] [id number] [place] [address]- 8670 Mar, [facility] [place] [facility] [address] [id number] [place] [address]- 7259 February, [facility] [place] [facility] [address] [id number] [place] [address] February, [facility] [place] [facility] [address] [id number] [place] [address]- 1399 February, [facility] [place] [facility] [address] [id number] [place] [address]- 6409 February, [facility] [place] [facility] [address] [id number] [place] [address]- 6065 February, [facility] [place] [facility] [address] [id number] [place] [address]- [address] February, [facility] [place] [facility] [address] [id number] [place] [address]- 3710 Jan, [facility] [place] [facility] [address] [id number] [place] [address]- 6910 Jan, [facility] [place] [facility] [address] [id number] [place] [address]- 1232 Dec, [facility] [place] [facility] [address] [id number] [place] [address]- 5092 Dec, [facility] [place] [facility] [address] [id number] [place] [address]- [address] Dec, [facility] [place] [facility] [address] [id number] [place] [address]- 9187 Dec, [facility] [place] [facility] [address] [id number] [place] [address]- 480[address] Dec, [facility] [place] [facility] [address] [id number] [place] [address]- 8840 Dec, [facility] [place] [facility] [address] [facility] [id number] [place] [address]- 235[address] Nov, [facility] [address] [id number] [address]- [address] Nov, [facility] [address] [id number] [address] Mar, [facility] [address] [address] Jan, [facility] [address] [address]- 2214 Dec, [facility] [address] [address] Jul, [facility] [address] [address]- [address] Jul, [facility] [address] [address] Jul, IMMUNIZATIONS No Known Immunizations SOCIAL HISTORY Never Assessed REASON FOR VISIT Xray (walk-in) MHill RT(R) PLAN OF CARE VITAL SIGNS MEDICATIONS Unknown Medications RESULTS Name Result Date Reference Range Xray : Knee, Left 3 views (IN HOUSE) 2018-07-22 PROCEDURES Procedure Date Ordered Result Body Site X-RAY EXAM OF KNEE, 3 Jul 22, 2018 INSTRUCTIONS MEDICATIONS ADMINISTERED No Known Medications MEDICAL (GENERAL) HISTORY Type Description Date Medical History asthma Medical History breast fibrocystic disease Medical History cholecystitis (05/2015) Medical History Recurrent streptococcal tonsillitis Surgical History No know Surgical history Hospitalization History childbirth Hospitalization History Lacerated kidney and liver 2008
--- OUTSIDE RECORDS SUMMARY | 2018-11-09 11:01 | XMS REPORT ---
Author Author MARCELINO COLLAZO Organization [facility] Address [address] [place] [address] Care Team Providers Care Hall Cleaner Name Role Phone KING MARCELINO Unavailable PROBLEMS Type Condition ICD9-CM Code SPZ17-MF Code Onset Dates Condition Status SNOMED Code Problem Menorrhagia with regular cycle N92.0 Active 273493547 Problem Seasonal allergic rhinitis due to other allergic trigger J30.89 Active 312884604 Problem Acute vaginitis N76.0 Active 938370546 Problem control counseling Z30.9 Active 02443653 Problem Major depressive disorder with single episode, remission status unspecified F32.9 Active 89780482 Problem Other specified bacterial agents as the cause of diseases classified elsewhere B96.89 Active [id number] ALLERGIES No Information ENCOUNTERS Encounter Location Date Diagnosis [facility] [id number] [place] [address] May, Menorrhagia with regular cycle N92.0 and control counseling Z30.9 [facility] [id number] [place] [address] Jan, [facility] R30.0 [facility] [id number] [place] [address] Dec, Seasonal allergic rhinitis, unspecified trigger J30.2 [facility] [id number] [place] [address] Nov, Viral gastroenteritis A08.4 [facility] [address] [address] Oct, Strep pharyngitis J02.0 ; Sore throat J02.9 and Fever R50.9 [facility] [address] [address] Aug, Bronchitis J40 and Acute non-recurrent frontal sinusitis J01.10 [place] [id number] [place] [address] Jun, [facility] [place] [id number] [place] [address] Jun, Bronchitis J40 [facility] W[facility] IN [address] [address] May, Tinea corporis B35.[address] [address] 19 Mar, 2017 Visit for TB skin test Z11.1 and Wellness examination Z00.00 [facility] [address] [address] February, Seasonal allergic rhinitis due to other allergic trigger J30.[address] [facility] [address] [address] Dec, Body aches R52 and Sinus pressure J34.[address] [address] Nov, [address] [address] Nov, depression F53 and ADHD, predominantly inattentive type F90.[address] [address] Oct, Major depressive disorder with single episode, remission status unspecified F32.[address] [facility] IN [address] [address] Oct, Body aches R52 ; Gastroenteritis K52.9 and Dysuria R30.[address] [facility] IN [address] [address] Sep, Sore throat J02.9 and Strep pharyngitis J02.[address] [facility] WALK IN [facility] [id number] [place] [address] 13 Sep, 2016 Sore throat J02.9 and Bronchitis J40 [place] [id number] [place] [address] May, Major depressive disorder with single episode, remission status unspecified F32.9 ; Acute vaginitis N76.0 ; Other specified bacterial agents as the cause of diseases classified elsewhere B96.89 and control counseling Z30.[address] [facility]ALK [facility] [place] [id number] [place] [address] May, Right upper quadrant pain R10.11 and Dysuria R30.[address] [facility] [place] [id number] [place] [address]67 15 May, 2016 Sore throat J02.[address] [facility]ALK [facility] [place] [address] [address] Mar, Abscess L02.91 [place] [address] [address] Jul, [place] [address] [address] Jul, test negative Z32.02 [place] [id number] [place] [address] 1248 Jul, URI (upper respiratory infection) J06.9 [place] [id number] [place] [address]12- 56[address] May, Encounter for PPD test V74.1 [place] [address] [address] Apr, Dysuria 788.1 [place] [address] [address] Jan, [place] [address] [address] Jan, [facility] [place] [facility] [address] [id number] [place] [address] Dec, [facility] [place] [facility] [address] [id number] [place] [address] Dec, [facility] [place] [facility] [address] [facility] [id number] [place] [address] 9779 Dec, [facility] [place] [facility] [address] [facility] [id number] [place] [address] 20[address] Dec, [facility] [place] [facility] [address] [id number] [place] [address]228 Nov, [facility] [place] [facility] [address] [facility] [id number] [place] [address] 28[address] Nov, 2014 [facility] [place] [facility] [address] [facility] [id number] [place] [address] 2457 Nov, 2014 [facility] [place] [facility] [address] [facility] [id number] [place] [address] Nov, [facility] [place] [facility] [address] [facility] [id number] [place] [address]- 8970 Nov, 2014 [facility] [place] [facility] [address] [facility] [id number], [place] [address] Nov, 2014 [facility] [place] [facility] [address] [facility] [id number], [place] [address] Nov, 2014 [facility] [place] [facility] [address] [facility] [id number], [place] [address] Nov, 2014 [facility] [place] [facility] [address] [facility] [id number], [place] [address] Nov, 2014 [facility] [place] [facility] [address] [facility] [id number], [place] [address] Nov, 2014 [facility] [place] [facility] [address] [facility] [id number], [place] [address] Oct, [facility] [place] [facility] [address] [id number] [place] [address]- 9520 Oct, [facility] [place] [facility] [address] [id number] [place] [address]- 4344 Aug, [facility] [place] [facility] [address] [id number] [place] [address] Aug, [facility] [place] [facility] [address] [id number] [place] [address]- [address] Jul, [facility] [place] [facility] [address] [id number] [place] [address]- 8656 Jul, [facility] [place] [facility] [address] [id number] [place] [address]- 3254 Jul, [facility] [place] [facility] [address] [id number] [place] [address]- 4105 Jul, [facility] [place] [facility] [address] [id number] [place] [address]- 2944 Jul, [facility] [place] [facility] [address] [id number] [place] [address]- 5364 Jul, [facility] [place] [facility] [address] [id number] [place] [address]- 4166 Jul, [facility] [place] [facility] [address] [id number] [place] [address]- [address]777 22 Jun, 2014 [facility] [place] [facility] [address] [id number] [place] [address]- 0610 17 Jun, 2014 [facility] [place] [facility] [address] [id number] [place] [address]- 1515 17 Jun, 2014 [facility] [place] [facility] [address] [id number] [place] [address]- 5139 11 Jun, 2014 [facility] [place] [facility] [address] [id number] [place] [address]- 5103 11 Jun, 2014 [facility] [place] [facility] [address] [id number] [place] [address]- 1688 Jun, [facility] [place] [facility] [address] [id number] [place] [address]- 8712 Jun, [facility] [place] [facility] [address] [id number] [place] [address]- 7964 May, [facility] [place] [facility] [address] [id number] [place] [address]- 2148 May, [facility] [place] [facility] [address] [id number] [place] [address]- 9094 May, [facility] [place] [facility] [address] [id number] [place] [address]- 5716 May, [facility] [place] [facility] [address] [id number] [place] [address]- 0230 May, [facility] [place] [facility] [address] [id number] [place] [address]- 8433 May, [facility] [place] [facility] [address] [id number] [place] [address]- 3179 May, [facility] [place] [facility] [address] [id number] [place] [address]- 7968 May, [facility] [place] [facility] [address] [id number] [place] [address]- 5755 Mar, [facility] [place] [facility] [address] [id number] [place] [address]- [address] Mar, [facility] [place] [facility] [address] [id number] [place] [address]- 0980 February, [facility] [place] [facility] [address] [id number] [place] [address]- 0112 February, [facility] [place] [facility] [address] [id number] [place] [address]- 2181 February, [facility] [place] [facility] [address] [id number] [place] [address]- 3253 February, [facility] [place] [facility] [address] [id number] [place] [address]- 5332 February, [facility] [address] [id number] [place] [address]- 3560 February, [facility] [place] [facility] [address] [id number] [place] [address]- 6814 Jan, [facility] [address] [id number] [place] [address]- 5726 Jan, [facility] [address] [id number] [place] [address]- 9853 Dec, [facility] [address] [id number] [place] [address]- 3834 Dec, [facility] [address] [id number] [place] [address]- 7502 Dec, [facility] [address] [id number] [place] [address]- 5233 Dec, [facility] [address] [id number] [place] [address]- 8769 Dec, [facility] [address] [id number] [place] [address]- 2230 Dec, [facility] [address] [id number] [place] [address]- 9644 Nov, [facility] [address] [id number] [place] [address]- 8912 Nov, [facility] [address] [id number] [place] [address]- [address] Mar, [facility] [place] [facility] [address] [id number] [place] [address]- 3605 Jan, [facility] [place] [facility] [address] [id number] [place] [address]- 1224 Dec, [facility] [place] [facility] [address] [id number] [place] [address]- 4706 Jul, [facility] [address] [facility] [id number] [place] Jul, [facility] [address] [facility] [id number] [place] Jul, IMMUNIZATIONS No Known Immunizations SOCIAL HISTORY Never Assessed REASON FOR VISIT Menstrual concerns , having heavy periods for the last 2 months lasting 4 days with a lot of cramps, states everytime she get her period get rt shoulder pain -- linh omalley PLAN OF CARE Activity Details Follow Up 3 Months Reason:menorrhagia VITAL SIGNS Height 61 in 2018-05-16 Weight 156.6 lbs 2018-05-16 Temperature 98.7 degrees Fahrenheit 2018-05-16 Heart Rate 70 bpm 2018-05-16 Respiratory Rate 18 2018-05-16 BMI 29.59 kg/m2 2018-05-16 Blood pressure systolic 110 mmHg 2018-05-16 Blood pressure diastolic 68 mmHg 2018-05-16 MEDICATIONS Medication Instructions Dosage Frequency Start Date End Date Duration Status Tri-Sprintec 0.18/0.215/0.25 MG-35 MCG Orally Once a day 1 tablet 24h May, 28 day(s) Active Albuterol Sulfate 90 mcg/actuation inhale 2 puffs by Inhalation route every 4 hours as needed PRN for shortness of breath Nov, Active Albuterol Sulfate (2.5 MG/3ML) 0.083% Inhalation 4 times a day 3 ml 6h 13 Jun, 2017 Active RESULTS Name Result Date Reference Range TEST, URINE (IN HOUSE) 2018-05-16 RESULTS negative Lot # [id number] Control + Exp date 09/2019 CBC 2018-05-16 WHITE BLOOD CELL COUNT 7.0 3.8-10.8 RED BLOOD CELL COUNT 4.52 3.80-5.10 HEMOGLOBIN 11.8 11.7-15.5 HEMATOCRIT 36.0 35.0-45.0 MCV 79.6 80.0-100.0 MCH 26.1 27.0-33.0 MCHC 32.8 32.0-36.0 RDW 14.4 11.0-15.0 PLATELET COUNT 366 140-400 MPV 9.7 7.5-12.5 ABSOLUTE NEUTROPHILS 3878 [id number] ABSOLUTE LYMPHOCYTES 2408 850-3900 ABSOLUTE MONOCYTES 504 200-950 ABSOLUTE EOSINOPHILS 168 15-500 ABSOLUTE BASOPHILS 42 0-200 NEUTROPHILS 55.4 LYMPHOCYTES 34.4 MONOCYTES 7.2 EOSINOPHILS 2.4 BASOPHILS 0.6 PROCEDURES Procedure Date Ordered Result Body Site URINE TEST May 16, 2018 COMPLETE CBC W/AUTO DIFF WBC May 16, 2018 VENIPUNCT, ROUTINE* May 16, 2018 INSTRUCTIONS MEDICATIONS ADMINISTERED No Known Medications MEDICAL (GENERAL) HISTORY Type Description Date Medical History asthma Medical History breast fibrocystic disease Medical History cholecystitis (05/2015) Medical History Recurrent streptococcal tonsillitis Hospitalization History childbirth Hospitalization History Lacerated kidney and liver 2008
--- OUTSIDE RECORDS SUMMARY | 2018-11-09 11:01 | XMS REPORT ---
Author Author JET TORRES [facility] Address [address] [place] [address] Phone Unavailable Care Team Providers Care Banker Mason Name Role Phone JET TORRES Unavailable Unavailable PROBLEMS Type Condition ICD9-CM Code GUC09-ML Code Onset Dates Condition Status SNOMED Code Problem control counseling Z30.9 Active 26758194 Problem Intractable migraine without status migrainosus, unspecified migraine type G43.919 Active 057709652 Problem Menorrhagia with regular cycle N92.0 Active 745414576 Problem Other specified bacterial agents as the cause of diseases classified elsewhere B96.89 Active 53938586 Problem Acute vaginitis N76.0 Active 509553399 Problem Seasonal allergic rhinitis due to other allergic trigger J30.89 Active 574299378 Problem Major depressive disorder with single episode, remission status unspecified F32.9 Active 06179030 ALLERGIES Substance Reaction Event Type Date Status Hydrocodone Bitartrate Unknown Drug Allergy Jun, Active ENCOUNTERS Encounter Location Date Diagnosis [facility] [id number] [place] [address] Jun, Intractable migraine without status migrainosus, unspecified migraine type G43.919 [facility] [id number] [place] [address] May, Menorrhagia with regular cycle N92.0 and control counseling Z30.9 [facility] [id number] [place] [address] Jan, Dysuria R30.0 [facility] [id number] [place] [address] Dec, Seasonal allergic rhinitis, unspecified trigger J30.2 [facility] [id number] [place] [address] Nov, Viral gastroenteritis A08.4 [facility] [place] [id number] [place] [address] Oct, Strep pharyngitis J02.0 ; Sore throat J02.9 and Fever R50.9 [facility] [place] [id number] [place] [address] Aug, Bronchitis J40 and Acute non-recurrent frontal sinusitis J01.10 [place] [address] [address] Jun, [facility] [address] [address] Jun, Bronchitis J40 [facility] [address] [address] May, Tinea corporis B35.[address] [address] Mar, Visit for TB skin test Z11.1 and Wellness examination Z00.00 [facility] [address] [address] February, Seasonal allergic rhinitis due to other allergic trigger J30.89 [facility] [place] [id number] [place] [address] Dec, Body aches R52 and Sinus pressure J34.89 [place] [address] [address] Nov, [address] [address] Nov, depression F53 and ADHD, predominantly inattentive type F90.0 [place] [id number] [place] [address] Oct, Major depressive disorder with single episode, remission status unspecified F32.9 [facility] [place] [id number] [place] [address]07 [address] Oct, Body aches R52 ; Gastroenteritis K52.9 and Dysuria R30.0 [facility] [address] [address] Sep, Sore throat J02.9 and Strep pharyngitis J02.0 [facility] [place] [address] [address] Sep, Sore throat J02.9 and Bronchitis J40 [place] [address] [address] May, Major depressive disorder with single episode, remission status unspecified F32.9 ; Acute vaginitis N76.0 ; Other specified bacterial agents as the cause of diseases classified elsewhere B96.89 and control counseling Z30.9 [facility] [place] [address] [address] May, Right upper quadrant pain R10.11 and Dysuria R30.0 [facility] [place] [address] [address] May, Sore throat J02.9 [facility] [place] [id number] [place] [address]2562 [address] Mar, Abscess L02.91 [place] [address] [address] Jul, [place] [address] [address] Jul, test negative Z32.02 [place] [address] 6[address] Jul, URI (upper respiratory infection) J06.9 [place] [address] [address] May, Encounter for PPD test V74.1 [place] [address] [facility] [id number] [place] [address] Apr, Dysuria 788.1 [facility] [place] [facility] [address] [facility] [id number] [place] [address] 14 Jan, 2015 [facility] [place] [facility] [id number] [place] [address] Jan, [facility] [place] [facility] [id number] [place] [address] Dec, [facility] [place] [facility] [address] [facility] [id number] [place] [address] 40[address] Dec, [facility] [place] [facility] [id number] [place] [address] Dec, [facility] [place] [facility] [id number] [place] [address] Dec, [facility] [place] [facility] [address] [address] Nov, [facility] [place] [facility] [id number] [place] [address] Nov, [facility] [place] [facility] [address] [address] Nov, [facility] [place] [facility] [address] [address] Nov, [facility] [place] [facility] [address] [address] Nov, [facility] [place] [facility] [address] [place] [id number] [address] Nov, [facility] [place] [facility] [address] [address] Nov, [facility] [place] [facility] [address] [address] Nov, [facility] [place] [facility] [address] [place] [address] Nov, 2014 [facility] [place] [facility] [address] [id number] [place] [address]- 5674 Nov, [facility] [place] [facility] [address] [id number] [place] [address]- 66[address] Oct, [facility] [place] [facility] [address] [id number] [place] [address]- 0[address] Oct, [facility] [place] [facility] [address] [id number] [place] [address]- 7892 Aug, [facility] [place] [facility] [address] [id number] [place] [address]- 1783 Aug, [facility] [place] [facility] [address] [id number] [place] [address]- 6790 Jul, [facility] [place] [facility] [address] [id number] [place] [address]- 3353 Jul, [facility] [place] [facility] [address] [id number] [place] [address]- 9255 Jul, [facility] [place] [facility] [address] [id number] [place] [address]- 0243 Jul, [facility] [place] [facility] [address] [id number] [place] [address]- 0663 Jul, [facility] [place] [facility] [address] [id number] [place] [address]- 2484 Jul, [facility] [place] [facility] [address] [id number] [place] [address]- 9473 Jul, [facility] [place] [facility] [address] [id number] [place] [address]- 1434 Jun, [facility] [place] [facility] [address] [id number] [place] [address]- 2559 Jun, [facility] [place] [facility] [address] [id number] [place] [address]- 7972 Jun, [facility] [place] [facility] [address] [id number] [place] [address]- 36[address] Jun, [facility] [place] [facility] [address] [id number] [place] [address]- 7062 Jun, [facility] [place] [facility] [address] [id number] [place] [address]- 2345 Jun, [facility] [place] [facility] [address] [id number] [place] [address]- 9083 Jun, [facility] [place] [facility] [address] [id number] [place] [address]- 3699 May, [facility] [place] [facility] [address] [id number] [place] [address]- 7433 May, [facility] [place] [facility] [address] [id number] [place] [address]- 8486 May, [facility] [place] [facility] [address] [id number] [place] [address]- 0802 May, [facility] [place] [facility] [address] [id number] [place] [address]- 2381 May, [facility] [place] [facility] [address] [id number] [place] [address]- 5070 May, [facility] [place] [facility] [address] [id number] [place] [address]- 4953 May, [facility] [place] [facility] [address] [id number] [place] [address]- 7806 May, [facility] [place] [facility] [address] [id number] [place] [address]- 5622 Mar, [facility] [place] [facility] [address] [id number] [place] [address]- 6464 Mar, [facility] [place] [facility] [address] [id number] [place] [address]- [address]455 February, [facility] [place] [facility] [address] [id number] [place] [address]- 7747 February, [facility] [address] [id number] [place] [address]- 9594 February, [facility] [place] [facility] [address] [id number] [place] [address]- 1695 February, [facility] [place] [facility] [address] [id number] [place] [address]- 3656 February, [facility] [place] [facility] [address] [id number] [place] [address]- 1537 February, [facility] [place] [facility] [address] [id number] [place] [address]- 1138 Jan, [facility] [place] [facility] [address] [id number] [place] [address]- 7331 Jan, [facility] [place] [facility] [address] [facility] [id number] [place] [address]- 8962 Dec, [facility] [place] [facility] [address] [id number] [place] [address]- 8633 Dec, [facility] [place] [facility] [address] [id number] [place] [address]- 4366 Dec, [facility] [place] [facility] [address] [facility] [id number] [place] [address]- 3360 Dec, [facility] [place] [facility] [address] [id number] [place] [address]- 1967 Dec, [facility] [place] [facility] [address] [id number] [place] [address]- 5848 Dec, [facility] [place] [facility] [address] [id number] [place] [address]- 6850 Nov, [facility] [place] [facility] [address] [id number] [place] [address]- 7535 Nov, [facility] [place] [facility] [address] [facility] [id number] [place] [address]- 0029 Mar, [facility] [place] [facility] [address] [facility] [id number] [address] Jan, [facility] [address] [facility] [id number] [address] Dec, [facility] [address] [facility] [id number] [address]- 1646 Jul, [facility] [address] [facility] [id number] [address]- [address] Jul, [facility] [address] [facility] [id number], [place] [address]- [address] Jul, IMMUNIZATIONS Vaccine Route Administration Date Status TORADOL (IM) 60 MG/2ML (UP TO 15 MG) IM Intramuscular Jul 04, 2018 Administered SOCIAL HISTORY Never Assessed REASON FOR VISIT headache for 7 days. wakes up et feels fine. after getting ready for work et as the day goes on...headache returns. [email or web address] PLAN OF CARE Activity Details Follow Up prn Reason: VITAL SIGNS Height 61 in 2018-07-04 Weight 158.8 lbs 2018-07-04 Temperature 98.1 degrees Fahrenheit 2018-07-04 Heart Rate 74 bpm 2018-07-04 Respiratory Rate 20 2018-07-04 BMI 30.00 kg/m2 2018-07-04 Blood pressure systolic 116 mmHg 2018-07-04 Blood pressure diastolic 68 mmHg 2018-07-04 MEDICATIONS Medication Instructions Dosage Frequency Start Date End Date Duration Status Albuterol Sulfate 90 mcg/actuation inhale 2 puffs by Inhalation route every 4 hours as needed PRN for shortness of breath Nov, Active Albuterol Sulfate (2.5 MG/3ML) 0.083% Inhalation 4 times a day 3 ml 6h Jun, Active Aleve 220 MG Orally every 12 hrs 1 tablet with food or milk as needed 12h Active Acetaminophen 500 MG Orally every 6 hrs 1 capsule as needed 6h Active Tri-Sprintec 0.18/0.215/0.25 MG-35 MCG Orally Once a day 1 tablet 24h May, 28 day(s) Active Excedrin Migraine 250-250-65 MG Orally Once a day 2 tablets 24h 30 day(s) Active RESULTS No Results PROCEDURES Procedure Date Ordered Result Body Site TORADOL (IM) 60 MG/2ML (UP TO 15 MG) Jul 04, 2018 THER/PROPH/DIAG INJ, SC/IM Jul 04, 2018 INSTRUCTIONS MEDICATIONS ADMINISTERED No Known Medications MEDICAL (GENERAL) HISTORY Type Description Date Medical History asthma Medical History breast fibrocystic disease Medical History cholecystitis (05/2015) Medical History Recurrent streptococcal tonsillitis Surgical History No know Surgical history Hospitalization History childbirth Hospitalization History Lacerated kidney and liver 2009
--- OUTSIDE RECORDS SUMMARY | 2018-11-09 11:02 | XMS REPORT ---
Author Author MERE CARBONE [facility] Address [address] [place] [address] Care Team Providers Care Fire Investigation Manager Name Role Phone MERE CARBONE Unavailable PROBLEMS Type Condition ICD9-CM Code ALX67-LG Code Onset Dates Condition Status SNOMED Code Problem Seasonal allergic rhinitis due to other allergic trigger J30.89 Active 404132339 Problem Other specified bacterial agents as the cause of diseases classified elsewhere B96.89 Active 95794137 Problem Major depressive disorder with single episode, remission status unspecified F32.9 Active 26793592 Problem Acute vaginitis N76.0 Active 351020123 Problem control counseling Z30.9 Active 30430503 ALLERGIES No Information SOCIAL HISTORY Never Assessed PLAN OF CARE VITAL SIGNS MEDICATIONS Unknown Medications RESULTS No Results PROCEDURES No Known procedures IMMUNIZATIONS No Known Immunizations MEDICAL (GENERAL) HISTORY Type Description Date Medical History asthma Medical History breast fibrocystic disease Medical History cholecystitis (05/2015) Medical History Recurrent streptococcal tonsillitis Hospitalization History childbirth Hospitalization History Lacerated kidney and liver 2008
--- OUTSIDE RECORDS SUMMARY | 2018-11-09 11:02 | XMS REPORT ---
Author Author [place] [facility] Address [address] [place] [address] Care Team Providers Care Pruner Name Role Phone imanZACH HobbsY Unavailable PROBLEMS Type Condition ICD9-CM Code QWH56-WG Code Onset Dates Condition Status SNOMED Code Problem Seasonal allergic rhinitis due to other allergic trigger J30.89 Active 508486892 Problem Other specified bacterial agents as the cause of diseases classified elsewhere B96.89 Active 31165208 Problem Major depressive disorder with single episode, remission status unspecified F32.9 Active 64277184 Problem Acute vaginitis N76.0 Active 683088142 Problem control counseling Z30.9 Active 57463732 ALLERGIES Substance Reaction Event Type Date Status Hydrocodone Bitartrate Unknown Drug Allergy Nov, Active Codeine Unknown Drug Allergy Nov, Active SOCIAL HISTORY Never Assessed PLAN OF CARE Activity Details Follow Up 4 Weeks Reason: VITAL SIGNS Height 61 in 2016-11-23 Weight 146.0 lbs 2016-11-23 Heart Rate 88 bpm 2016-11-23 Respiratory Rate 20 2016-11-23 BMI 27.58 kg/m2 2016-11-23 Blood pressure systolic 114 mmHg 2016-11-23 Blood pressure diastolic 76 mmHg 2016-11-23 MEDICATIONS Medication Instructions Dosage Frequency Start Date End Date Duration Status Methylphenidate HCl 10 MG Orally Once a day 1 tablet 24h Nov, Dec, 30 days Active Citalopram Hydrobromide 20 MG Orally Once a day 1 tablet 24h Nov, 30 day(s) Active RESULTS No Results PROCEDURES No Known procedures IMMUNIZATIONS No Known Immunizations MEDICAL (GENERAL) HISTORY Type Description Date Medical History asthma Medical History breast fibrocystic disease Medical History cholecystitis (05/2015) Medical History Recurrent streptococcal tonsillitis Hospitalization History childbirth Hospitalization History Lacerated kidney and liver 2008
--- OUTSIDE RECORDS SUMMARY | 2018-11-09 11:02 | XMS REPORT ---
Author Author JOVANNA COLINDRES Organization [facility] Address [address] [place] [address] Care Team Providers Care Sql Report Developer Name Role Phone JOVANNA COLINDRES Unavailable PROBLEMS Type Condition ICD9-CM Code SLZ47-BY Code Onset Dates Condition Status SNOMED Code Problem Seasonal allergic rhinitis due to other allergic trigger J30.89 Active 680428899 Problem Other specified bacterial agents as the cause of diseases classified elsewhere B96.89 Active 38455122 Problem Major depressive disorder with single episode, remission status unspecified F32.9 Active 11705375 Problem Acute vaginitis N76.0 Active 388024304 Problem control counseling Z30.9 Active [id number] ALLERGIES Substance Reaction Event Type Date Status Hydrocodone Bitartrate Unknown Drug Allergy Oct, Active ENCOUNTERS Encounter Location Date Diagnosis [facility] [id number] [place] [address] Jan, Dysuria R30.0 [facility] [id number] [place] [address] Dec, Seasonal allergic rhinitis, unspecified trigger J30.2 [facility] [id number] [place] [address] 07 Nov, 2017 Viral gastroenteritis A08.4 [facility] [id number] [place] [address] Oct, Strep pharyngitis J02.0 ; Sore throat J02.9 and Fever R50.9 [facility] [id number] [place] [address] Aug, Bronchitis J40 and Acute non-recurrent frontal sinusitis J01.10 [facility] [place] [id number] [place] [address] Jun, [facility] [place] [address] [address] Jun, Bronchitis J40 [facility] [place] [address] [address] May, Tinea corporis B35.4 [place] [address] [address] Mar, Visit for TB skin test Z11.1 and Wellness examination Z00.00 [facility] [address] [address] February, Seasonal allergic rhinitis due to other allergic trigger J30.89 [facility] [address] [address] Dec, Body aches R52 and Sinus pressure J34.89 [place] [address] [address] Nov, [address] [address] Nov, depression F53 and ADHD, predominantly inattentive type F90.[address] [address] Oct, Major depressive disorder with single episode, remission status unspecified F32.9 [facility] [place] [address] [address] Oct, Body aches R52 ; Gastroenteritis K52.9 and Dysuria R30.0 [facility] [address] [address] Sep, Sore throat J02.9 and Strep pharyngitis J02.0 [facility] [address] [address] Sep, Sore throat J02.9 and Bronchitis J40 [place] [id number] [place] [address] May, Major depressive disorder with single episode, remission status unspecified F32.9 ; Acute vaginitis N76.0 ; Other specified bacterial agents as the cause of diseases classified elsewhere B96.89 and control counseling Z30.9 [facility] [place] [address] [address] May, Right upper quadrant pain R10.11 and Dysuria R30.0 [facility] [address] [address] May, Sore throat J02.9 [facility] [place] [address] [address] Mar, Abscess L02.91 [place] [address] [address] Jul, [place] [address] [address] Jul, test negative Z32.02 [place] [address] [address] Jul, URI (upper respiratory infection) J06.9 [place] [address] [address] May, Encounter for PPD test V74.1 [place] [address] [address] Apr, Dysuria 788.1 [place] [address] [address] Jan, [place] [address] [address] Jan, [place] [address] [address] Dec, [facility] [place] [facility] [address] [id number] [place] [address] Dec, [facility] [place] [facility] [address] [id number] [place] [address] Dec, [facility] [place] [facility] [address] [id number] [place] [address] Dec, [facility] [place] [facility] [address] [id number] [place] [address] 37[address] Nov, 2014 [facility] [place] [facility] [address] [id number] [place] [address]69 Nov, 2014 [facility] [place] [facility] [address] [id number] [place] [address] Nov, 2014 [facility] [place] [facility] [address] [id number] [place] [address] Nov, 2014 [facility] [place] [facility] [address] [id number] [place] [address] Nov, 2014 [facility] [place] [facility] [address] [id number] [place] [address] 95[address] Nov, 2014 [facility] [place] [facility] [address] [id number] [place] [address] Nov, 2014 [facility] [place] [facility] [address] [id number] [place] [address] Nov, 2014 [facility] [place] [facility] [address] [id number] [place] [address] 35[address] Nov, [facility] [place] [facility] [address] [id number] [place] [address] 4[address] Nov, [facility] [place] [facility] [address] [id number] [place] [address] 3[address] Oct, [facility] [place] [facility] [address] [id number] [place] [address] 9397 Oct, [facility] [place] [facility] [address] [id number] [place] [address] 3[address] Aug, [facility] [place] [facility] [address] [id number] [place] [address] 2004 Aug, [facility] [place] [facility] [address] [id number] [place] [address]- [address] 30 Jul, 2014 [facility] [place] [facility] [address] [id number] [place] [address] 59[address] Jul, [facility] [place] [facility] [address] [id number] [place] [address] 119[address] Jul, [facility] [place] [facility] [address] [id number] [place] [address]607 Jul, [facility] [place] [facility] [address] [id number] [place] [address]- 3[address] Jul, [facility] [place] [facility] [address] [id number] [place] [address] 35[address] Jul, [facility] [place] [facility] [address] [id number] [place] [address] 6[address] Jul, [facility] [place] [facility] [address] [id number] [place] [address]- [address] 22 Jun, 2014 [facility] [place] [facility] [address] [id number] [place] [address] 7925 17 Jun, 2014 [facility] [place] [facility] [address] [id number] [place] [address]- 2086 17 Jun, 2013 [facility] [place] [facility] [address] [id number] [place] [address]- 2548 11 Sep, 2013 [facility] [place] [facility] [address] [id number] [place] [address] 2547 11 Jun, 2013 [facility] [place] [facility] [address] [id number] [place] [address]- 2546 11 Jun, 2013 [facility] [place] [facility] [address] [id number] [place] [address] 2540 Jun, [facility] [place] [facility] [address] [id number] [place] [address]- 9691 May, [facility] [place] [facility] [address] [id number] [place] [address]- 5[address] May, [facility] [place] [facility] [address] [id number] [place] [address]- 5[address] May, [facility] [place] [facility] [address] [id number] [place] [address]- 5240 May, [facility] [place] [facility] [address] [id number] [place] [address]- 1485 May, [facility] [place] [facility] [address] [id number] [place] [address]- 9422 May, [facility] [place] [facility] [address] [id number] [place] [address]- 47[address] May, [facility] [place] [facility] [address] [id number] [place] [address]- 9316 May, [facility] [place] [facility] [address] [id number] [place] [address]- 9275 Mar, [facility] [place] [facility] [address] [id number] [place] [address] 4104 Mar, [facility] [place] [facility] [address] [id number] [place] [address] 4828 February, [facility] [place] [facility] [address] [id number] [place] [address]- 0[address] February, [facility] [place] [facility] [address] [id number] [place] [address]- 7674 February, [facility] [place] [facility] [address] [id number] [place] [address]- 5338 February, [facility] [place] [facility] [address] [id number] [place] [address]- 5584 February, [facility] [place] [facility] [address] [id number] [place] [address]- 1080 February, [facility] [place] [facility] [address] [id number] [place] [address] 0089 Jan, [facility] [place] [facility] [address] [id number] [place] [address] Jan, [facility] [place] [facility] [address] [id number] [place] [address]- 4337 Dec, [facility] [place] [facility] [address] [id number] [place] [address]- 8101 Dec, [facility] [place] [facility] [address] [id number] [place] [address]- 0787 Dec, [facility] [place] [facility] [address] [id number] [place] [address]- 9383 Dec, [facility] [place] [facility] [address] [id number] [place] [address]- 4209 Dec, [facility] [place] [facility] [address] [id number] [place] [address]- 2460 Dec, [facility] [place] [facility] [address] [id number] [place] [address]- 4860 Nov, [facility] [place] [facility] [address] [id number] [place] [address]- 6030 Nov, [facility] [place] [facility] [address] [id number] [place] [address] 1950 Mar, [facility] [place] [facility] [address] [id number] [place] [address]- 2925 Jan, [facility] [place] [facility] [address] [id number] [place] [address]- 5116 Dec, [facility] [place] [facility] [address] [id number] [place] [address]- 6796 Jul, [facility] [place] [facility] [address] [id number] [place] [address]- [address] Jul, [facility] [place] [facility] [address] [facility] [id number] [place] [address] Jul, IMMUNIZATIONS No Known Immunizations SOCIAL HISTORY Never Assessed REASON FOR VISIT chills, fever, dosy aches, sore troat. been sick since yesterday. [email or web address] PLAN OF CARE Activity Details Follow Up prn Reason: VITAL SIGNS Height 61 in 2017-10-20 Weight 161.2 lbs 2017-10-20 Temperature 99.9 degrees Fahrenheit 2017-10-20 Heart Rate 88 bpm 2017-10-20 Respiratory Rate 20 2017-10-20 BMI 30.46 kg/m2 2017-10-20 Blood pressure systolic 118 mmHg 2017-10-20 Blood pressure diastolic 78 mmHg 2017-10-20 MEDICATIONS Medication Instructions Dosage Frequency Start Date End Date Duration Status ZyrTEC 10 mg 1 tablet by Oral route 1 time per day Dec, Not-Taking Albuterol Sulfate (2.5 MG/3ML) 0.083% Inhalation 4 times a day 3 ml 6h Jun, Not-Taking Amoxicillin 500 MG Orally every 12 hrs 1 capsule 12h Oct, Oct, 10 day(s) Active Citalopram Hydrobromide 20 MG Orally Once a day 1 tablet 24h Nov, 30 day(s) Not-Taking Albuterol Sulfate 90 mcg/actuation inhale 2 puffs by Inhalation route every 4 hours as needed PRN for shortness of breath Nov, Not -Taking Tri-Sprintec 0.18/0.215/0.25 MG-35 MCG Orally Once a day 1 tablet 24h May, 28 day(s) Not-Taking Zofran ODT 4 MG Orally every 8 hrs as needed 1 tablet on the tongue and allow to dissolve Oct, 5 days Not-Taking RESULTS Name Result Date Reference Range STREP A (IN HOUSE) 2017-10-20 STREP A positive Control + Lot # [id number] Exp date 2018 08 30 INFLUENZA A & B (IN HOUSE) 2017-10-20 INFLUENZA A negative INFLUENZA B negative Control + Lot # [id number] Exp date 2019 PROCEDURES Procedure Date Ordered Result Body Site STREP A ASSAY W/OPTIC Oct 20, 2017 INFLUENZA ASSAY W/OPTIC Oct 20, 2017 INSTRUCTIONS MEDICATIONS ADMINISTERED No Known Medications MEDICAL (GENERAL) HISTORY Type Description Date Medical History asthma Medical History breast fibrocystic disease Medical History cholecystitis (05/2015) Medical History Recurrent streptococcal tonsillitis Hospitalization History childbirth Hospitalization History Lacerated kidney and liver 2009
--- OUTSIDE RECORDS SUMMARY | 2018-11-09 11:02 | XMS REPORT ---
Author Author JOVANNA COLINDRES Organization [facility] Address [address] [place] [address] Care Team Providers Care Transplant Worker Name Role Phone JOVANNA COLINDRES Unavailable PROBLEMS Type Condition ICD9-CM Code BHQ56-VV Code Onset Dates Condition Status SNOMED Code Problem Seasonal allergic rhinitis due to other allergic trigger J30.89 Active 111357636 Problem Other specified bacterial agents as the cause of diseases classified elsewhere B96.89 Active 84164595 Problem Major depressive disorder with single episode, remission status unspecified F32.9 Active 04973161 Problem Acute vaginitis N76.0 Active 316184018 Problem control counseling Z30.9 Active 12921079 ALLERGIES Substance Reaction Event Type Date Status Hydrocodone Bitartrate Unknown Drug Allergy Dec, Active ENCOUNTERS Encounter Location Date Diagnosis [facility] [id number] [place] [address] Jan, Dysuria R30.0 [facility] [id number] [place] [address] Dec, Seasonal allergic rhinitis, unspecified trigger J30.2 [facility] [id number] [place] [address] 07 Nov, 2017 Viral gastroenteritis A08.4 [facility] [id number] [place] [address] Oct, Strep pharyngitis J02.0 ; Sore throat J02.9 and Fever R50.9 [facility] [id number] [place] [address] Aug, Bronchitis J40 and Acute non-recurrent frontal sinusitis J01.10 [facility] [id number] [place] [address] Jun, [facility] [place] [address] [address] Jun, Bronchitis J40 [facility] [place] [address] [address] May, Tinea corporis B35.4 [place] [address] [address] Mar, Visit for TB skin test Z11.1 and Wellness examination Z00.00 [facility] [address] [address] February, Seasonal allergic rhinitis due to other allergic trigger J30.89 [facility] [address] [address] Dec, Body aches R52 and Sinus pressure J34.89 [place] [address] [address] Nov, [address] [address] Nov, depression F53 and ADHD, predominantly inattentive type F90.[address] [address] Oct, Major depressive disorder with single episode, remission status unspecified F32.9 [facility] [place] [address] [address] Oct, Body aches R52 ; Gastroenteritis K52.9 and Dysuria R30.0 [facility] [address] [address] Sep, Sore throat J02.9 and Strep pharyngitis J02.0 [facility] [address] [address] Sep, Sore throat J02.9 and Bronchitis J40 [place] [id number] [place] [address] May, Major depressive disorder with single episode, remission status unspecified F32.9 ; Acute vaginitis N76.0 ; Other specified bacterial agents as the cause of diseases classified elsewhere B96.89 and control counseling Z30.9 [facility] [place] [address] [address] May, Right upper quadrant pain R10.11 and Dysuria R30.0 [facility] [address] [address] May, Sore throat J02.9 [facility] [place] [address] [address] Mar, Abscess L02.91 [place] [address] [address] Jul, [place] [address] [address] Jul, test negative Z32.02 [place] [address] [address] Jul, URI (upper respiratory infection) J06.9 [place] [address] [address] May, Encounter for PPD test V74.1 [place] [address] [address] Apr, Dysuria 788.1 [place] [address] [address] Jan, [place] [address] [address] Jan, [place] [address] [address] Dec, [facility] [place] [facility] [address] [id number] [place] [address] Dec, [facility] [place] [facility] [address] [id number] [place] [address] Dec, [facility] [place] [facility] [address] [id number] [place] [address] Dec, [facility] [place] [facility] [address] [id number] [place] [address]369 Nov, 2014 [facility] [place] [facility] [address] [id number] [place] [address] 132[address] Nov, 2014 [facility] [place] [facility] [address] [id number] [place] [address] 119[address] Nov, 2014 [facility] [place] [facility] [address] [id number] [place] [address] 28[address] Nov, 2014 [facility] [place] [facility] [address] [id number] [place] [address] Nov, 2014 [facility] [place] [facility] [address] [id number] [place] [address] 46[address] Nov, 2014 [facility] [place] [facility] [address] [id number] [place] [address] Nov, 2014 [facility] [place] [facility] [address] [id number] [place] [address] Nov, 2014 [facility] [place] [facility] [address] [id number] [place] [address] Nov, [facility] [place] [facility] [address] [id number] [place] [address] 0293 Nov, [facility] [place] [facility] [address] [id number] [place] [address] 24[address] Oct, [facility] [place] [facility] [address] [id number] [place] [address] 6079 Oct, [facility] [place] [facility] [address] [id number] [place] [address] 6[address] Aug, [facility] [place] [facility] [address] [id number] [place] [address] 7[address] Aug, [facility] [place] [facility] [address] [id number] [place] [address]- 9880 30 Jul, 2014 [facility] [place] [facility] [address] [id number] [place] [address]- 4[address] Jul, [facility] [place] [facility] [address] [id number] [place] [address]- [address] Jul, [facility] [place] [facility] [address] [id number] [place] [address] 3368 Jul, [facility] [place] [facility] [address] [id number] [place] [address] Jul, [facility] [place] [facility] [address] [id number] [place] [address] Jul, [facility] [place] [facility] [address] [id number] [place] [address] 2027 Jul, [facility] [place] [facility] [address] [id number] [place] [address]- [address] 22 Jun, 2014 [facility] [place] [facility] [address] [id number] [place] [address]- 1217 17 Jun, 2014 [facility] [place] [facility] [address] [id number] [place] [address]- 9596 17 Jun, 2013 [facility] [place] [facility] [address] [id number] [place] [address]- 2543 11 Sep, 2013 [facility] [place] [facility] [address] [id number] [place] [address] 2544 11 Jun, 2013 [facility] [place] [facility] [address] [id number] [place] [address]- 2546 11 Jun, 2013 [facility] [place] [facility] [address] [id number] [place] [address] 2549 Jun, [facility] [place] [facility] [address] [id number] [place] [address]- [address]99 May, [facility] [place] [facility] [address] [id number] [place] [address]- 2678 May, [facility] [place] [facility] [address] [id number] [place] [address] 4[address] May, [facility] [place] [facility] [address] [id number] [place] [address]- 8349 May, [facility] [place] [facility] [address] [id number] [place] [address]- 5692 May, [facility] [place] [facility] [address] [id number] [place] [address]- 9868 May, [facility] [place] [facility] [address] [id number] [place] [address]- [address] May, [facility] [place] [facility] [address] [id number] [place] [address]- 9995 May, [facility] [place] [facility] [address] [id number] [place] [address]- 7242 Mar, [facility] [place] [facility] [address] [id number] [place] [address]- 8[address] Mar, [facility] [place] [facility] [address] [id number] [place] [address]- 82[address] February, [facility] [place] [facility] [address] [id number] [place] [address]- 49[address] February, [facility] [place] [facility] [address] [id number] [place] [address]- 9983 February, [facility] [place] [facility] [address] [id number] [place] [address]- 1080 February, [facility] [place] [facility] [address] [id number] [place] [address]- 5[address] February, [facility] [place] [facility] [address] [id number] [place] [address]- 0571 February, [facility] [place] [facility] [address] [id number] [place] [address]- 9466 Jan, [facility] [place] [facility] [address] [id number] [place] [address] Jan, [facility] [place] [facility] [address] [id number] [place] [address]- 2290 Dec, [facility] [place] [facility] [address] [id number] [place] [address]- 1652 Dec, [facility] [place] [facility] [address] [id number] [place] [address]- 8733 Dec, [facility] [place] [facility] [address] [id number] [place] [address]- 8694 Dec, [facility] [place] [facility] [address] [id number] [place] [address]- 5186 Dec, [facility] [place] [facility] [address] [id number] [place] [address]- 6330 Dec, [facility] [place] [facility] [address] [id number] [place] [address]- 45[address] Nov, [facility] [place] [facility] [address] [id number] [place] [address]- 4[address] Nov, [facility] [place] [facility] [address] [id number] [place] [address]- 9035 Mar, [facility] [place] [facility] [address] [id number] [place] [address]- 6465 Jan, [facility] [place] [facility] [address] [id number] [place] [address]- 9387 Dec, [facility] [place] [facility] [address] [id number] [place] [address]- 8481 Jul, [facility] [place] [facility] [address] [id number] [place] [address]- 4913 Jul, [facility] [place] [facility] [address] [facility] [id number] [place] [address]- 39[address] Jul, IMMUNIZATIONS No Known Immunizations SOCIAL HISTORY Never Assessed REASON FOR VISIT cough/back pain- CHARO Shirley PLAN OF CARE Activity Details Follow Up prn Reason: VITAL SIGNS Height 61 in 2017-12-18 Weight 159.8 lbs 2017-12-18 Temperature 99.0 degrees Fahrenheit 2017-12-18 Heart Rate 88 bpm 2017-12-18 Respiratory Rate 20 2017-12-18 BMI 30.19 kg/m2 2017-12-18 Blood pressure systolic 108 mmHg 2017-12-18 Blood pressure diastolic 62 mmHg 2017-12-18 MEDICATIONS Medication Instructions Dosage Frequency Start Date End Date Duration Status Albuterol Sulfate 90 mcg/actuation inhale 2 puffs by Inhalation route every 4 hours as needed PRN for shortness of breath Nov, Not -Taking Zofran 4 MG Orally 3 times a day 1 tablet 8h Nov, Not-Taking Albuterol Sulfate (2.5 MG/3ML) 0.083% Inhalation 4 times a day 3 ml 6h Jun, Not-Taking Flonase 50 MCG/ACT Nasally Once a day 1 spray in each nostril 24h Dec, 30 day(s) Active Zofran ODT 4 MG Orally every 8 hrs as needed 1 tablet on the tongue and allow to dissolve Oct, 5 days Not-Taking Tri-Sprintec 0.18/0.215/0.25 MG-35 MCG Orally Once a day 1 tablet 24h May, 28 day(s) Not-Taking Citalopram Hydrobromide 20 MG Orally Once a day 1 tablet 24h Nov, 30 day(s) Not-Taking ZyrTEC 10 mg 1 tablet by Oral route 1 time per day Dec, Not-Taking Benzonatate 200 MG Orally Three times a day 1 capsule 8h Dec, Dec, 7 days Active RESULTS No Results PROCEDURES No Known procedures INSTRUCTIONS MEDICATIONS ADMINISTERED No Known Medications MEDICAL (GENERAL) HISTORY Type Description Date Medical History asthma Medical History breast fibrocystic disease Medical History cholecystitis (05/2015) Medical History Recurrent streptococcal tonsillitis Hospitalization History childbirth Hospitalization History Lacerated kidney and liver 2008
--- OUTSIDE RECORDS SUMMARY | 2018-11-09 11:02 | XMS REPORT ---
Author Author JET TORRES [facility] Address [address] [place] [address] Phone Unavailable Care Team Providers Care Senior Salesforce Developer Name Role Phone JET TORRES Unavailable Unavailable PROBLEMS Type Condition ICD9-CM Code AMA09-TC Code Onset Dates Condition Status SNOMED Code Problem Menorrhagia with regular cycle N92.0 Active 893935890 Problem Seasonal allergic rhinitis due to other allergic trigger J30.89 Active 828625407 Problem Acute vaginitis N76.0 Active 147195491 Problem control counseling Z30.9 Active 76285034 Problem Major depressive disorder with single episode, remission status unspecified F32.9 Active 77191478 Problem Other specified bacterial agents as the cause of diseases classified elsewhere B96.89 Active 82963445 ALLERGIES Substance Reaction Event Type Date Status Hydrocodone Bitartrate Unknown Drug Allergy Jan, Active ENCOUNTERS Encounter Location Date Diagnosis [facility] [address] [address] May, Menorrhagia with regular cycle N92.0 and control counseling Z30.9 [facility] [id number] [place] [address] Jan, Dysuria R30.0 [facility] [address] [address] Dec, Seasonal allergic rhinitis, unspecified trigger J30.2 [facility] [address] [address] Nov, Viral gastroenteritis A08.4 [facility] [address] [address] Oct, Strep pharyngitis J02.0 ; Sore throat J02.9 and Fever R50.9 [facility] [address] [address] 15 Aug, 2017 Bronchitis J40 and Acute non-recurrent frontal sinusitis J01.[address] [address] 13 Jun, 2017 [facility] [address] [address] 13 Jun, 2017 Bronchitis J40 [facility] [address] [address] 11 May, 2017 Tinea corporis B35.[address] [address] 19 Mar, 2017 Visit for TB skin test Z11.1 and Wellness examination Z00.00 [facility] IN [address] [address] February, Seasonal allergic rhinitis due to other allergic trigger J30.89 [facility] [address] [address] Dec, Body aches R52 and Sinus pressure J34.[address] [address] Nov, [address] [address] Nov, depression F53 and ADHD, predominantly inattentive type F90.[address] [address] Oct, Major depressive disorder with single episode, remission status unspecified F32.9 [facility] [address] [address] Oct, Body aches R52 ; Gastroenteritis K52.9 and Dysuria R30.0 [facility] [address] [address] Sep, Sore throat J02.9 and Strep pharyngitis J02.0 [facility] [id number] [place] [address] Sep, Sore throat J02.9 and Bronchitis J40 [facility] [id number] [place] [address] May, Major depressive disorder with single episode, remission status unspecified F32.9 ; Acute vaginitis N76.0 ; Other specified bacterial agents as the cause of diseases classified elsewhere B96.89 and control counseling Z30.9 [facility] IN [facility] [id number] [place] [address] May, Right upper quadrant pain R10.11 and Dysuria R30.0 [facility] [id number] [place] [address] May, Sore throat J02.9 [facility] [id number] [place] [address] Mar, Abscess L02.91 [place] [id number] [place] [address] Jul, [place] [id number] [place] [address] Jul, test negative Z32.02 [place] [id number] [place] [address] Jul, URI (upper respiratory infection) J06.9 [place] [id number] [place] [address] May, Encounter for PPD test V74.1 [place] [id number] [place] [address] Apr, Dysuria 788.1 [place] [id number] [place] [address] Jan, [place] [id number] [place] [address] 13 Jan, 2015 [facility] [place] [facility] [address] [id number] [place] [address] Dec, [facility] [place] [facility] [address] [id number] [place] [address] Dec, [facility] [place] [facility] [address] [id number] [place] [address] Dec, [facility] [place] [facility] [address] [id number] [place] [address] Dec, [facility] [place] [facility] [address] [id number] [place] [address] Nov, 2014 [facility] [place] [facility] [address] [facility] [id number] [place] [address] Nov, 2014 [facility] [place] [facility] [address] [facility] [id number] [place] [address] Nov, 2014 [facility] [place] [facility] [address] [facility] [id number] [place] [address] Nov, 2014 [facility] [place] [facility] [address] [facility] [id number] [place] [address] Nov, 2014 [facility] [place] [facility] [address] [facility] [id number] [place] [address] Nov, 2014 [facility] [place] [facility] [address] [facility] [id number], [place] [address] Nov, 2014 [facility] [place] [facility] [address] [facility] [id number] [place] [address] Nov, 2014 [facility] [place] [facility] [address] [facility]] [id number] [place] [address] Nov, 2014 [facility] [place] [facility] [address] [facility]] [id number] [place] [address] Nov, 2014 [facility] [place] [facility] [address] [facility]] [id number], [place] [address] Oct, [facility] [place] [facility] [address] [id number] [place] [address] Oct, [facility] [place] [facility] [address] [id number] [place] Aug, [facility] [place] [facility] [address] [id number] [place] [address] Aug, [facility] [place] [facility] [address] [id number] [place] [address] Jul, [facility] [place] [facility] [address] [id number] [place] [address] Jul, [facility] [place] [facility] [address] [id number] [place] [address] Jul, [facility] [place] [facility] [address] [id number] [place] [address] Jul, [facility] [place] [facility] [address] [id number] [place] [address] Jul, [facility] [place] [facility] [address] [id number] [place] [address] Jul, [facility] [place] [facility] [address] [id number] [place] [address] Jul, [facility] [place] [facility] [address] [id number] [place] [address] 22 Jun, 2014 [facility] [place] [facility] [address] [id number] [place] [address] 17 Jun, 2014 [facility] [place] [facility] [address] [id number] [place] [address] 17 Jun, 2014 [facility] [place] [facility] [address] [id number] [place] [address] 11 Jun, 2014 [facility] [place] [facility] [address] [id number] [place] [address] 11 Jun, 2014 [facility] [place] [facility] [address] [id number] [place] [address] Jun, [facility] [place] [facility] [address] [id number] [place] [address] Jun, [facility] [place] [facility] [address] [id number] [place] [address] May, [facility] [place] [facility] [address] [id number] [place] [address] May, [facility] [place] [facility] [address] [id number] [place] [address] May, [facility] [place] [facility] [address] [id number] [place] [address] May, [facility] [place] [facility] [address] [id number] [place] [address] May, [facility] [place] [facility] [address] [id number] [place] [address] May, [facility] [place] [facility] [address] [id number] [place] [address] May, [facility] [place] [facility] [address] [id number] [place] [address] May, [facility] [place] [facility] [address] [id number] [place] [address] Mar, [facility] [place] [facility] [address] [id number] [place] [address] Mar, [facility] [place] [facility] [address] [id number] [place] [address] February, [facility] [place] [facility] [address] [id number] [place] [address] February, [facility] [place] [facility] [address] [id number] [place] [address] February, [facility] [place] [facility] [address] [id number] [place] [address] February, [facility] [place] [facility] [address] [id number] [place] [address] February, [facility] [place] [facility] [address] [id number] [place] [address] February, [facility] [place] [facility] [address] [id number] [place] [address] Jan, [facility] [place] [facility] [address] [id number] [place] [address] Jan, [facility] [place] [facility] [address] [id number] [place] [address] Dec, [facility] [place] [facility] [address] [id number] [place] [address] Dec, [facility] [place] [facility] [address] [id number] [place] [address] Dec, [facility] [place] [facility] [address] [id number] [place] [address] Dec, [facility] [place] [facility] [address] [id number] [place] [address] Dec, [facility] [place] [facility] [address] [id number] [place] [address] Dec, [facility] [place] [facility] [address] [id number] [place] [address] Nov, [facility] [place] [facility] [address] [id number] [place] [address] Nov, [facility] [place] [facility] [address] [id number] [place] [address] Mar, [facility] [place] [facility] [address] [id number] [place] [address] Jan, [facility] [place] [facility] [address] [id number] [place] [address] Dec, [facility] [place] [facility] [address] [facility] [id number] [place] [address] Jul, [facility] [address] [facility] [id number] [place] [address] Jul, [facility] [address] [facility] 3] [id number] [place] [address] Jul, IMMUNIZATIONS No Known Immunizations SOCIAL HISTORY Never Assessed REASON FOR VISIT N/V/D for 2 days. dysuria and lower flank pain for 5 days. [email or web address] PLAN OF CARE Activity Details Follow Up prn Reason: VITAL SIGNS Height 61 in 2018-01-14 Weight 157.8 lbs 2018-01-14 Temperature 97.9 degrees Fahrenheit 2018-01-14 Heart Rate 80 bpm 2018-01-14 Respiratory Rate 20 2018-01-14 BMI 29.81 kg/m2 2018-01-14 Blood pressure systolic 116 mmHg 2018-01-14 Blood pressure diastolic 78 mmHg 2018-01-14 MEDICATIONS Medication Instructions Dosage Frequency Start Date End Date Duration Status Zofran ODT 4 MG Orally every 8 hrs as needed 1 tablet on the tongue and allow to dissolve Oct, 5 days Not-Taking Albuterol Sulfate 90 mcg/actuation inhale 2 puffs by Inhalation route every 4 hours as needed PRN for shortness of breath Nov, Active Bactrim DS 800-160 MG Orally Twice a day 1 tablet 12h Jan,Jan 10 day(s) Active Flonase 50 MCG/ACT Nasally Once a day 1 spray in each nostril 24h Dec, 30 day(s) Active Albuterol Sulfate (2.5 MG/3ML) 0.083% Inhalation 4 times a day 3 ml 6h Jun, Active Zofran 4 MG Orally 3 times a day 1 tablet 8h Nov, Not-Taking Tri-Sprintec 0.18/0.215/0.25 MG-35 MCG Orally Once a day 1 tablet 24h May, 28 day(s) Not-Taking Diflucan 150 MG Orally as directed 1 tablet Jan, Jan, 1 dose Active Citalopram Hydrobromide 20 MG Orally Once a day 1 tablet 24h Nov, 30 day(s) Not-Taking ZyrTEC 10 mg 1 tablet by Oral route 1 time per day Dec, Not-Taking RESULTS No Results PROCEDURES Procedure Date Ordered Result Body Site URINALYSIS, AUTO, W/O SCOPE January 14, 2018 URINE CULTURE/COLONY COUNT January 14, 2018 INSTRUCTIONS MEDICATIONS ADMINISTERED No Known Medications MEDICAL (GENERAL) HISTORY Type Description Date Medical History asthma Medical History breast fibrocystic disease Medical History cholecystitis (05/2015) Medical History Recurrent streptococcal tonsillitis Hospitalization History childbirth Hospitalization History Lacerated kidney and liver 2008
--- OUTSIDE RECORDS SUMMARY | 2018-11-09 11:02 | XMS REPORT ---
Author Author ABDULKADIR DOWNEY [facility] e[employer] Address Unknown Phone Unavailable Care Team Providers Care Animal Laboratory Helper Name Role Phone ABDULKADIR DOWNEY CP Unavailable Allergies No Known Allergies Problems Problem Type Condition ICD-9 Code Onset Dates Condition Status Problem Acute sinusitis, unspecified 461.9 Active Problem Diffuse cystic mastopathy 610.1 Active Problem Cough 786.2 Active Problem examination or test, negative result V72.41 Active Problem Screening examination for venereal disease V74.5 Active Problem General counseling for initiation of other contraceptive measures V25.02 Active Problem Unspecified contraceptive management V25.9 Active Assessment Encounter for PPD test V74.1 Active Problem Unspecified otitis media 382.9 Active Problem Acute pharyngitis 462 Active Problem Postnasal drip 784.91 Active Problem Fever, unspecified 780.60 Active Problem Unspecified otalgia 388.70 Active Problem Lump or mass in breast 611.72 Active Problem Screening examination for pulmonary tuberculosis V74.1 Active Problem Allergic rhinitis due to pollen 477.0 Active Problem Acute tonsillitis 463 Active Problem Unspecified breast screening V76.10 Active Problem Routine gynecological examination V72.31 Active Problem General counseling for prescription of oral contraceptives V25.01 Active Problem Screening for malignant neoplasm of the cervix V76.2 Active Problem Urinary tract infection, site not specified 599.0 Active Problem Dermatophytosis of the body 110.5 Active Medications No Known Medications Procedures Procedure Coding System Code Date TB INTRADERMAL TEST CPT-4 95876 Jun 14, 2015 Results No Known Results Summary Purpose eClinicalWorks Submission
--- OUTSIDE RECORDS SUMMARY | 2018-11-09 11:02 | XMS REPORT ---
Author LYNSEY Fitzgerald [facility] eClinical[employer] Address Unknown Phone Unavailable Care Team Providers Care Yard Pilot Name Role Phone LYNSEY BUTLER CP Unavailable Allergies, Adverse Reactions, Alerts Substance Reaction Event Type Hydrocodone Bitartrate Info Not Available Drug Allergy Codeine Info Not Available Drug Allergy Problems Problem Type Condition Code Onset Dates Condition Status Problem Acute sinusitis, unspecified 461.9 Active Problem Diffuse cystic mastopathy 610.1 Active Problem Cough 786.2 Active Problem examination or test, negative result V72.41 Active Problem Screening examination for venereal disease V74.5 Active Problem General counseling for initiation of other contraceptive measures V25.02 Active Problem Unspecified contraceptive management V25.9 Active Assessment URI (upper respiratory infection) J06.9 Active Problem Unspecified otitis media 382.9 Active [...] Dermatophytosis of the body 110.5 Active Medications Medication Code System Code Instructions Start Date End Date Status Dosage ZyrTEC NDC 0 10 mg December 21, 2014 1 tablet by Oral route 1 time per day Albuterol Sulfate NDC [address]-42 90 mcg/actuation Nov 27, 2014 inhale 2 puffs by Inhalation route every 4 hours as needed PRN for shortness of breath Procedures Procedure Coding System Code Date Office Visit, Est Pt., Level 2 CPT-4 01254 Aug 02, 2015 Vital Signs Date/Time: Aug 02, 2015 Temperature 98.4 F Weight 160 lbs Height 61 in BMI 30.23 Index Blood Pressure Diastolic 60 mmHg Blood Pressure Systolic 102 mmHg Cardiac Monitoring Heart Rate 70 bpm Results No Known Results Summary Purpose eClinicalWorks Submission
--- OUTSIDE RECORDS SUMMARY | 2018-11-09 11:02 | XMS REPORT ---
Author FELY Calderon [facility] eClinical[employer] Address Unknown Phone Unavailable Care Team Providers Care Collection Systems Worker Name Role Phone FELY MCCULLOUGH CP Unavailable Allergies No Known Allergies Problems Problem Type Condition Code Onset Dates Condition Status Problem Acute sinusitis, unspecified 461.9 Active Problem Diffuse cystic mastopathy 610.1 Active Problem Cough 786.2 Active Problem examination or test, negative result V72.41 Active Problem Screening examination for venereal disease V74.5 Active Problem General counseling for initiation of other contraceptive measures V25.02 Active Problem Unspecified contraceptive management V25.9 Active Problem Unspecified otitis media 382.9 Active [...] body 110.5 Active Medications No Known Medications Results No Known Results Summary Purpose eClinicalWorks Submission
--- OUTSIDE RECORDS SUMMARY | 2018-11-09 11:02 | XMS REPORT ---
Author Author JOVANNA COLINDRES Organization [facility] Address [address] [place] [address] Care Team Providers Care Franchise Specialist Name Role Phone JOVANNA COLINDRES Unavailable PROBLEMS Type Condition ICD9-CM Code VAC17-KK Code Onset Dates Condition Status SNOMED Code Problem Seasonal allergic rhinitis due to other allergic trigger J30.89 Active 947334038 Problem Major depressive disorder with single episode, remission status unspecified F32.9 Active 81440714 Problem control counseling Z30.9 Active 42499622 Problem Acute vaginitis N76.0 Active 810105586 Problem Other specified bacterial agents as the cause of diseases classified elsewhere B96.89 Active 74715359 ALLERGIES Substance Reaction Event Type Date Status Hydrocodone Bitartrate Unknown Drug Allergy Sep, Active Codeine Unknown Drug Allergy Sep, Active SOCIAL HISTORY No smoking Hx information available PLAN OF CARE Activity Details Follow Up prn Reason: VITAL SIGNS Height 61 in 2016-09-26 Weight 147.4 lbs 2016-09-26 Temperature 97.8 degrees Fahrenheit 2016-09-26 Heart Rate 86 bpm 2016-09-26 Respiratory Rate 20 2016-09-26 Oximetry 100 % 2016-09-26 BMI 27.85 kg/m2 2016-09-26 Blood pressure systolic 110 mmHg 2016-09-26 Blood pressure diastolic 62 mmHg 2016-09-26 MEDICATIONS Medication Instructions Dosage Frequency Start Date End Date Duration Status Tri-Sprintec 0.18/0.215/0.25 MG-35 MCG Orally Once a day 1 tablet 24h May, 28 day(s) Active Albuterol Sulfate 90 mcg/actuation inhale 2 puffs by Inhalation route every 4 hours as needed PRN for shortness of breath Nov, Active Azithromycin 250 MG Orally Once a day 2 tablets on the first day, then 1 tablet daily for 4 days 24h Sep, Sep, 5 day(s) Active Benzonatate 200 MG Orally Three times a day as needed 1 capsule Sep, Sep, 5 days Active ZyrTEC 10 mg 1 tablet by Oral route 1 time per day Dec, Active RESULTS Name Result Date Reference Range STREP A (IN HOUSE) 2016-09-26 STREP A Negative Control + Lot # [id number] Exp date PROCEDURES Procedure Date Ordered Related Diagnosis Body Site MEASURE BLOOD OXYGEN LEVEL Sep 26, 2016 STREP A ASSAY W/OPTIC Sep 26, 2016 Office Visit, Est Pt., Level 3 Sep 26, 2016 IMMUNIZATIONS No Known Immunizations
--- OUTSIDE RECORDS SUMMARY | 2018-11-09 11:03 | XMS REPORT ---
Author Author JOVANNA COLINDRES Organization [facility] Address [address] [place] [address] Care Team Providers Care Tape Recorder Repairer Name Role Phone JOVANNA COLINDRES Unavailable PROBLEMS Type Condition ICD9-CM Code JSZ02-EL Code Onset Dates Condition Status SNOMED Code Problem Seasonal allergic rhinitis due to other allergic trigger J30.89 Active 368738425 Problem Major depressive disorder with single episode, remission status unspecified F32.9 Active 16190418 Problem control counseling Z30.9 Active 37717203 Problem Acute vaginitis N76.0 Active 946177831 Problem Other specified bacterial agents as the cause of diseases classified elsewhere B96.89 Active 42323386 ALLERGIES Substance Reaction Event Type Date Status Hydrocodone Bitartrate Unknown Drug Allergy Sep, Active Codeine Unknown Drug Allergy Sep, Active SOCIAL HISTORY No smoking Hx information available PLAN OF CARE Activity Details Follow Up prn Reason: VITAL SIGNS Height 61 in 2016-10-05 Weight 147.2 lbs 2016-10-05 Temperature 97.9 degrees Fahrenheit 2016-10-05 Heart Rate 88 bpm 2016-10-05 Respiratory Rate 18 2016-10-05 BMI 27.81 kg/m2 2016-10-05 Blood pressure systolic 112 mmHg 2016-10-05 Blood pressure diastolic 68 mmHg 2016-10-05 MEDICATIONS Medication Instructions Dosage Frequency Start Date End Date Duration Status Albuterol Sulfate 90 mcg/actuation inhale 2 puffs by Inhalation route every 4 hours as needed PRN for shortness of breath Nov, Active Tri-Sprintec 0.18/0.215/0.25 MG-35 MCG Orally Once a day 1 tablet 24h May, 28 day(s) Active ZyrTEC 10 mg 1 tablet by Oral route 1 time per day Dec, Active RESULTS Name Result Date Reference Range STREP A (IN HOUSE) 2016-10-05 STREP A Positive Control + Lot # [id number] Exp date 04/21/18 PROCEDURES Procedure Date Ordered Related Diagnosis Body Site STREP A ASSAY W/OPTIC Oct 05, 2016 Office Visit, Est Pt., Level 3 Oct 05, 2016 THER/PROPH/DIAG INJ, SC/IM Oct 05, 2016 BICILLIN LA/PENICILLIN G BENZATHINE Oct 05, 2016 IMMUNIZATIONS Vaccine Route Administration Date Status BICILLIN LA/PENICILLIN G BENZATHINE IM Intramuscular Oct 05, 2016 Administered
--- OUTSIDE RECORDS SUMMARY | 2018-11-09 11:03 | XMS REPORT ---
Author Author MAYELA PIERCE Organization [employer] Address Unknown Phone Unavailable Care Team Providers Care Sugar Boiler Name Role Phone MAYELA PIERCE CP Unavailable Allergies, Adverse Reactions, Alerts Substance [...] Problem Unspecified contraceptive management V25.9 Active Assessment Right upper quadrant pain R10.11 Active Problem Unspecified otitis media 382.9 Active [...] malignant neoplasm of the cervix V76.2 Active Assessment Dysuria R30.0 Active Problem Urinary tract infection, site not specified 599.0 Active Problem Dermatophytosis of the body 110.5 Active Medications Medication Code System Code Instructions Start Date End Date Status Dosage Zofran [facility] [address]-48 4 MG Orally 2 times a day Jun 05, 2016 1 tablets Vitamin [facility] [address]8962 27-0.8 MG Orally not defined Procedures Procedure Coding System Code Date [facility] C[facility]-4 NOBLL Jun 05, 2016 Office Visit, Est Pt., Level 3 CPT-4 13473 Jun 05, 2016 URINALYSIS, AUTO, W/O SCOPE CPT-4 20869 Jun 05, 2016 Vital Signs Date/Time: Jun 05, 2016 Cardiac Monitoring Heart Rate 80 bpm Weight 140.0 lbs Height 61 in BMI 26.45 Index Blood Pressure Diastolic 62 mmHg Blood Pressure Systolic 100 mmHg Results No Known Results Summary Purpose eClinicalWorks Submission
--- OUTSIDE RECORDS SUMMARY | 2018-11-09 11:03 | XMS REPORT ---
Author Author LAURA MÁRQUEZ Organization [facility] Address [address] [place] [address] Care Team Providers Care Preventive Medicine Officer Name Role Phone LAURA MÁRQUEZ Unavailable PROBLEMS Type Condition ICD9-CM Code PPB54-HI Code Onset Dates Condition Status SNOMED Code Problem Seasonal allergic rhinitis due to other allergic trigger J30.89 Active 061921385 Problem Other specified bacterial agents as the cause of diseases classified elsewhere B96.89 Active 24466523 Problem Major depressive disorder with single episode, remission status unspecified F32.9 Active 67384718 Problem Acute vaginitis N76.0 Active 432352096 Problem control counseling Z30.9 Active 96581879 ALLERGIES Substance Reaction Event Type Date Status Hydrocodone Bitartrate Unknown Drug Allergy February, Active Codeine Unknown Drug Allergy February, Active SOCIAL HISTORY Never Assessed PLAN OF CARE VITAL SIGNS Height 61 in 2017-03-07 Weight 152.2 lbs 2017-03-07 Temperature 97.5 degrees Fahrenheit 2017-03-07 Heart Rate 80 bpm 2017-03-07 Respiratory Rate 20 2017-03-07 BMI 28.75 kg/m2 2017-03-07 Blood pressure systolic 118 mmHg 2017-03-07 Blood pressure diastolic 66 mmHg 2017-03-07 MEDICATIONS Medication Instructions Dosage Frequency Start Date End Date Duration Status PredniSONE 20 mg Orally Once a day 2 tablets 24h February, February, 05 days Active ZyrTEC 10 mg 1 tablet by Oral route 1 time per day Dec, Active RESULTS No Results PROCEDURES No Known procedures IMMUNIZATIONS No Known Immunizations MEDICAL (GENERAL) HISTORY Type Description Date Medical History asthma Medical History breast fibrocystic disease Medical History cholecystitis (05/2015) Medical History Recurrent streptococcal tonsillitis Hospitalization History childbirth Hospitalization History Lacerated kidney and liver 2008
--- OUTSIDE RECORDS SUMMARY | 2018-11-09 11:03 | XMS REPORT ---
Author Author MERE CARBONE [facility] Address [address] [place] [address] Care Team Providers Care Archival Studies Professor Name Role Phone MERE CARBONE Unavailable PROBLEMS Type Condition ICD9-CM Code SOC01-YC Code Onset Dates Condition Status SNOMED Code Problem Seasonal allergic rhinitis due to other allergic trigger J30.89 Active 492034312 Problem Other specified bacterial agents as the cause of diseases classified elsewhere B96.89 Active 17352673 Problem Major depressive disorder with single episode, remission status unspecified F32.9 Active 51771500 Problem Acute vaginitis N76.0 Active 491336327 Problem control counseling Z30.9 Active 63364567 ALLERGIES Substance Reaction Event Type Date Status Hydrocodone Bitartrate Unknown Drug Allergy Oct, Active Codeine Unknown Drug Allergy Oct, Active SOCIAL HISTORY No smoking Hx information available PLAN OF CARE Activity Details Follow Up prn Reason:Depression, anxiety VITAL SIGNS MEDICATIONS Unknown Medications RESULTS No Results PROCEDURES Procedure Date Ordered Related Diagnosis Body Site Psych diagnostic evaluation, established patient Nov 10, 2016 IMMUNIZATIONS No Known Immunizations
--- OUTSIDE RECORDS SUMMARY | 2018-11-09 11:03 | XMS REPORT ---
Author Author MAYELA PIERCE Organization [employer] Address Unknown Phone Unavailable Care Team Providers Care Supervisor Intelligence Analyst Name Role Phone MAYELA PIERCE CP Unavailable [...] Problem Unspecified contraceptive management V25.9 Active Assessment Sore throat J02.9 Active Problem Unspecified otitis media 382.9 Active [...] Instructions Start Date End Date Status Dosage Vitamin [facility] [address] 27-0.8 MG Orally not defined Procedures Procedure Coding System Code Date Office Visit, Est Pt., Level 3 CPT-4 96537 May 29, 2016 STREP A ASSAY W/OPTIC CPT-4 37358 May 29, 2016 Vital Signs Date/Time: May 29, 2016 Cardiac Monitoring Heart Rate 86 bpm Weight 141 lbs Height 61 in BMI 26.64 Index Blood Pressure Diastolic 58 mmHg Blood Pressure Systolic 100 mmHg Results No Known Results Summary Purpose [employer] Submission
--- OUTSIDE RECORDS SUMMARY | 2018-11-09 11:03 | XMS REPORT ---
Author Author FELY MCCULLOUGH [facility] Address [address] [place] [address] Care Team Providers Care Casino Controller Name Role Phone FELY MCCULLOUGH Unavailable PROBLEMS Type Condition ICD9-CM Code ATU93-MI Code Onset Dates Condition Status SNOMED Code Problem Seasonal allergic rhinitis due to other allergic trigger J30.89 Active 833506981 Problem Other specified bacterial agents as the cause of diseases classified elsewhere B96.89 Active 74153762 Problem Major depressive disorder with single episode, remission status unspecified F32.9 Active 79605383 Problem Acute vaginitis N76.0 Active 671606126 Problem control counseling Z30.9 Active 04862655 ALLERGIES No Information ENCOUNTERS Encounter Location Date Diagnosis [facility] [address] [address] 02 Jan, 2018 Dysuria R30.0 [facility] [address] [place] [address] 06 Dec, 2017 Seasonal allergic rhinitis, unspecified trigger J30.2 [facility] [address] [place] [address] 07 Nov, 2017 Viral gastroenteritis A08.4 [facility] [address] [place] [address] Oct, Strep pharyngitis J02.0 ; Sore throat J02.9 and Fever R50.9 [facility] [address] [place] [address] 15 Aug, 2017 Bronchitis J40 and Acute non-recurrent frontal sinusitis J01.10 [facility] [address] [address] 13 Jun, 2017 [facility] [address] [place] [id number] [place] [address] Jun, Bronchitis J40 [facility] [address] [address] May, Tinea corporis B35.[address] [address] Mar, Visit for TB skin test Z11.1 and Wellness examination Z00.00 [facility] [address] [address] February, Seasonal allergic rhinitis due to other allergic trigger J30.89 [facility] [address] [address] Dec, Body aches R52 and Sinus pressure J34.[address] [address] Nov, [address] [address] Nov, depression F53 and ADHD, predominantly inattentive type F90.[address] [address] Oct, Major depressive disorder with single episode, remission status unspecified F32.9 [facility] [address] [address] Oct, Body aches R52 ; Gastroenteritis K52.9 and Dysuria R30.0 [facility] [address] [address] Sep, Sore throat J02.9 and Strep pharyngitis J02.0 [facility] [address] [address] Sep, Sore throat J02.9 and Bronchitis J40 [address] [address] May, Major depressive disorder with single episode, remission status unspecified F32.9 ; Acute vaginitis N76.0 ; Other specified bacterial agents as the cause of diseases classified elsewhere B96.89 and control counseling Z30.9 [facility] [id number] [place] [address] May, Right upper quadrant pain R10.11 and Dysuria R30.0 [facility] [id number] [place] [address] May, Sore throat J02.9 [facility] [place] [address] [address] Mar, Abscess L02.91 [place] [address] [address] Jul, [place] [address] [address] Jul, test negative Z32.02 [place] [address] [place] [id number] [place] [address] Jul, URI (upper respiratory infection) J06.9 [place] [address] [id number] [place] [address] May, Encounter for PPD test V74.1 [place] [address] [id number] [place] [address] Apr, Dysuria 788.1 [place] [address] [id number] [place] [address] Jan, [place] [address] [address] Jan, [place] [address] [place] [id number] [place] [address] Dec, [place] [address] [address] Dec, [facility] [place] [facility] [address] [id number] [place] [address] Dec, [facility] [place] [facility] [address] [id number] [place] [address] Dec, [facility] [place] [facility] [address] [facility] [id number] [place] [address] Nov, [facility] [place] [facility] [address] [id number] [place] [address] Nov, 2014 [facility] [place] [facility] [address] [id number] [place] [address] Nov, 2014 [facility] [place] [facility] [address] [facility] [id number] [place] [address] Nov, 2014 [facility] [place] [facility] [address] [facility] [id number] [place] [address] Nov, [facility] [place] [facility] [address] [facility] [id number] [place] [address] Nov, 2014 [facility] [place] [facility] [address] [facility] [id number] [place] [address] Nov, [facility] [place] [facility] [address] [facility] [id number] [place] [address] Nov, [facility] [place] [facility] [address] [facility] [id number] [place] [address] Nov, [facility] [place] [facility] [address] [facility] [id number] [place] [address] Nov, [facility] [place] [facility] [address] [facility] [id number] [place] [address] Oct, [facility] [place] [facility] [address] [facility] [id number] [place] [address] Oct, [facility] [place] [facility] [address] [facility] [id number] [address] Aug, [facility] [place] [facility] [address] [id number] [place] [address] Aug, [facility] [place] [facility] [address] [id number] [place] [address] Jul, [facility] [place] [facility] [address] [id number] [place] [address] Jul, [facility] [place] [facility] [address] [id number] [place] [address] Jul, [facility] [place] [facility] [address] [id number] [place] [address] Jul, [facility] [place] [facility] [address] [id number] [place] [address] Jul, [facility] [place] [facility] [address] [id number] [place] [address] Jul, [facility] [place] [facility] [address] [id number] [place] [address] Jul, [facility] [place] [facility] [address] [id number] [place] [address] 22 Jun, 2014 [facility] [place] [facility] [address] [id number] [place] [address] 17 Jun, 2014 [facility] [place] [facility] [address] [id number] [place] [address] 17 Jun, 2014 [facility] [place] [facility] [address] [id number] [place] [address]- [address] 11 Jun, 2013 [facility] [place] [facility] [address] [id number] [place] [address] 11 Jun, 2013 [facility] [place] [facility] [address] [id number] [place] [address] 11 Jun, 2013 [facility] [place] [facility] [address] [id number] [place] [address]- [address] 11 Jun, 2013 [facility] [place] [facility] [address] [id number] [place] [address]- [address] May, [facility] [place] [facility] [address] [id number] [place] [address] May, [facility] [place] [facility] [address] [id number] [place] [address]- [address] May, [facility] [place] [facility] [address] [id number] [place] [address] 245[address] May, [facility] [place] [facility] [address] [id number] [place] [address]- 17[address] May, [facility] [place] [facility] [address] [id number] [place] [address]- [address] May, [facility] [place] [facility] [address] [id number] [place] [address]- [address] May, [facility] [place] [facility] [address] [id number] [place] [address] May, [facility] [place] [facility] [address] [id number] [place] [address] Mar, [facility] [place] [facility] [address] [id number] [place] [address]- [address] Mar, [facility] [place] [facility] [address] [id number] [place] [address] February, [facility] [place] [facility] [address] [id number] [place] [address]- [address] February, [facility] [place] [facility] [address] [id number] [place] [address] February, [facility] [place] [facility] [address] [id number] [place] [address]- [address] February, [facility] [place] [facility] [address] [id number] [place] [address]- [address] February, [facility] [place] [facility] [address] [id number] [place] [address]- [address] February, [facility] [place] [facility] [address] [id number] [place] [address]- [address] Jan, [facility] [address] [id number] [place] [address] Jan, [facility] [address] [id number] [place] [address] Dec, [facility] [address] [id number] [place] [address] Dec, [facility] [address] [id number] [place] [address]- 16[address] Dec, [facility] [address] [id number] [place] [address]- [address]97 Dec, [facility] [address] [facility] [id number] [place] [address]- [address] Dec, [facility] [address] [facility] [id number] [place] [address]- [address] Dec, [facility] [address] [id number] [place] [address]- [address] Nov, [facility] [address] [facility] [id number] [place] [address]- [address] Nov, [facility] [address] [facility] [id number] [place] [address] Mar, [facility] [address] [facility] [id number] [place] [address] Jan, [facility] [address] [id number] [place] [address]- [address] Dec, [facility] [address] [facility] [id number] [place] [address]- [address] Jul, [facility] [address] [facility] [id number] [place] [address]- [address] Jul, [facility] [address] [facility] [id number] [place] [address] Jul, IMMUNIZATIONS No Known Immunizations SOCIAL HISTORY Never Assessed REASON FOR VISIT Requests return call PLAN OF CARE VITAL SIGNS MEDICATIONS Unknown Medications RESULTS No Results PROCEDURES No Known procedures INSTRUCTIONS MEDICATIONS ADMINISTERED No Known Medications MEDICAL (GENERAL) HISTORY Type Description Date Medical History asthma Medical History breast fibrocystic disease Medical History cholecystitis (05/2015) Medical History Recurrent streptococcal tonsillitis Hospitalization History childbirth Hospitalization History Lacerated kidney and liver 2008
--- OUTSIDE RECORDS SUMMARY | 2018-11-09 11:04 | XMS REPORT ---
Author FELY Calderon [facility] [employer] Address Unknown Phone Unavailable Care Team Providers Care Primary Care Nurse Practitioner Name Role Phone FELY MCCULLOUGH CP Unavailable [...] Problem Unspecified contraceptive management V25.9 Active Assessment test negative Z32.02 Active Problem Unspecified otitis media 382.9 Active [...] Medications Procedures Procedure Coding System Code Date VENIPUNCT, ROUTINE* CPT-4 15508 Aug 09, 2015 CHORIONIC GONADOTROPIN ASSAY CPT-4 03123 Aug 09, 2015 Results Name Result Date Reference Range Unit Abnormality Flag ROUTINE VENIPUNCTURE Summary Purpose [employer] Submission
--- OUTSIDE RECORDS SUMMARY | 2018-11-09 11:04 | XMS REPORT ---
Author Author LAURA MÁRQUEZ Organization [facility] Address [address] [place] [address] Care Team Providers Care Seat Scooper Machine Name Role Phone LAURA MÁRQUEZ Unavailable PROBLEMS Type Condition ICD9-CM Code FDA45-BG Code Onset Dates Condition Status SNOMED Code Problem Seasonal allergic rhinitis due to other allergic trigger J30.89 Active 629270463 Problem Other specified bacterial agents as the cause of diseases classified elsewhere B96.89 Active 24229660 Problem Major depressive disorder with single episode, remission status unspecified F32.9 Active 65166625 Problem Acute vaginitis N76.0 Active 668795969 Problem control counseling Z30.9 Active 01863235 ALLERGIES Substance Reaction Event Type Date Status Hydrocodone Bitartrate Unknown Drug Allergy Jun, Active Codeine Unknown Drug Allergy Jun, Active ENCOUNTERS Encounter Location Date Diagnosis [facility] [address] [address] Jan, Dysuria R30.0 [facility] [address] [id number] [place] [address] Dec, Seasonal allergic rhinitis, unspecified trigger J30.2 [facility] [id number] [place] [address] 07 Nov, 2017 Viral gastroenteritis A08.4 [facility] [id number] [place] [address] Oct, Strep pharyngitis J02.0 ; Sore throat J02.9 and Fever R50.9 [facility] [id number] [place] [address] 15 Aug, 2017 Bronchitis J40 and Acute non-recurrent frontal sinusitis J01.10 [facility] [id number] [place] [address] 13 Jun, 2017 [facility] [place] [address] [address] Jun, Bronchitis J40 [facility] [place] [address] [address] May, Tinea corporis B35.4 [place] [address] [address] 19 Mar, 2017 Visit for TB skin test Z11.1 and Wellness examination Z00.00 [facility] [address] [address] February, Seasonal allergic rhinitis due to other allergic trigger J30.89 [facility] [place] [address] [address] Dec, Body aches R52 and Sinus pressure J34.89 [place] [address] [address] Nov, [address] [address] Nov, depression F53 and ADHD, predominantly inattentive type F90.[address] [address] Oct, Major depressive disorder with single episode, remission status unspecified F32.9 [facility] [place] [address] [address] Oct, Body aches R52 ; Gastroenteritis K52.9 and Dysuria R30.0 [facility] [address] [address] Sep, Sore throat J02.9 and Strep pharyngitis J02.0 [facility] [address] [address] 13 Dec, 2016 Sore throat J02.9 and Bronchitis J40 [place] [address] [address] [place] [id number] [place] [address] May, Major depressive disorder with single episode, remission status unspecified F32.9 ; Acute vaginitis N76.0 ; Other specified bacterial agents as the cause of diseases classified elsewhere B96.89 and control counseling Z30.9 [facility] [address] [address] May, Right upper quadrant pain R10.11 and Dysuria R30.0 [facility] [address] [address] May, Sore throat J02.9 [facility] [place] [address] [address] Mar, Abscess L02.91 [place] [address] [address] Jul, [place] [address] [address] Jul, test negative Z32.02 [place] [address] [address] Jul, URI (upper respiratory infection) J06.9 [place] [address] [address] May, Encounter for PPD test V74.1 [place] [address] [address] Apr, Dysuria 788.1 [place] [address] [address] Jan, [place] [address] [address] Jan, [place] [address] [address] Dec, [facility] [place] [facility] [address] [id number] [place] [address] Dec, [facility] [place] [facility] [address] [id number] [place] [address] Dec, [facility] [place] [facility] [address] [id number] [place] [address] Dec, [facility] [place] [facility] [address] [id number] [place] [address] Nov, [facility] [place] [facility] [address] [id number] [place] [address] Nov, [facility] [place] [facility] [address] [id number] [place] [address] Nov, 2014 [facility] [place] [facility] [address] [id number] [place] [address] Nov, [facility] [place] [facility] [address] [id number] [place] [address] Nov, [facility] [place] [facility] [address] [id number] [place] [address] Nov, [facility] [place] [facility] [address] [id number] [place] [address] Nov, [facility] [place] [facility] [address] [id number] [place] [address] Nov, [facility] [place] [facility] [address] [id number] [place] [address] Nov, [facility] [place] [facility] [address] [id number] [place] [address] Nov, [facility] [place] [facility] [address] [id number] [place] [address] Oct, [facility] [place] [facility] [address] [id number] [place] [address] Oct, [facility] [place] [facility] [address] [id number] [place] [address] Aug, [facility] [place] [facility] [address] [id number] [place] [address] Aug, [facility] [place] [facility] [address] [id number] [place] [address] Jul, [facility] [place] [facility] [address] [id number] [place] [address]- [address] Jul, [facility] [place] [facility] [address] [id number] [place] [address]- [address] Jul, [facility] [place] [facility] [address] [id number] [place] [address] Jul, [facility] [place] [facility] [address] [id number] [place] [address]- [address] Jul, [facility] [place] [facility] [address] [id number] [place] [address]- [address] Jul, [facility] [place] [facility] [address] [id number] [place] [address]- [address] Jul, [facility] [place] [facility] [address] [id number] [place] [address]- [address] 22 Jun, 2014 [facility] [place] [facility] [address] [id number] [place] [address]- [address] 17 Jun, 2014 [facility] [place] [facility] [address] [id number] [place] [address]- [address] 17 Jun, 2013 [facility] [place] [facility] [address] [id number] [place] [address]- [address]47 11 Jun, 2013 [facility] [place] [facility] [address] [id number] [place] [address]- [address] 11 Jun, 2013 [facility] [place] [facility] [address] [id number] [place] [address]- [address] 11 Jun, 2013 [facility] [place] [facility] [address] [id number] [place] [address]- [address] Jun, [facility] [place] [facility] [address] [id number] [place] [address]- [address] May, [facility] [place] [facility] [address] [id number] [place] [address]- [address] May, [facility] [place] [facility] [address] [id number] [place] [address]- [address] May, [facility] [place] [facility] [address] [id number] [place] [address]- [address] May, [facility] [place] [facility] [address] [id number] [place] [address]- 40[address] May, [facility] [place] [facility] [address] [id number] [place] [address]- 1661 May, [facility] [place] [facility] [address] [id number] [place] [address]- [address] May, [facility] [place] [facility] [address] [id number] [place] [address]- 2027 May, [facility] [place] [facility] [address] [id number] [place] [address]- [address] Mar, [facility] [place] [facility] [address] [id number] [place] [address] Mar, [facility] [place] [facility] [address] [id number] [place] [address] February, [facility] [place] [facility] [address] [id number] [place] [address]- [address] February, [facility] [place] [facility] [address] [id number] [place] [address]- [address] February, [facility] [place] [facility] [address] [id number] [place] [address]- 288[address] February, [facility] [place] [facility] [address] [id number] [place] [address]- 8[address] February, [facility] [place] [facility] [address] [id number] [address] February, [facility] [place] [facility] [address] [id number] [place] [address]- 295[address] Jan, [facility] [place] [facility] [address] [facility] [id number] [place] [address]- [address] Jan, [facility] [place] [facility] [address] [facility] [id number] [place] [address]- [address] Dec, [facility] [place] [facility] [address] [facility] [id number] [place] [address]- [address] Dec, [facility] [place] [facility] [address] [id number] [place] [address]- 4[address] Dec, [facility] [place] [facility] [address] [facility] [id number] [place] [address]- 6[address] Dec, [facility] [place] [facility] [address] [place] [id number] [place] [address]- [address] Dec, [facility] [place] [facility] [address] [facility] [id number] [place] [address]- 45[address] Dec, [facility] [place] [facility] [address] [place] [id number] [place] [address] Nov, [facility] [place] [facility] [address] [facility] [id number] [place] [address]- [address] Nov, [facility] [place] [facility] [address] [facility] [id number] [place] [address]- [address] Mar, [facility] [place] [facility] [address] [facility] [id number][place] [address] Jan, [facility] [place] [facility] [address] [id number] [place] [address]- [address] Dec, [facility] [place] [facility] [address] [facility] [id number] [place] [address]- 16[address] Jul, [facility] [place] [facility] [address] [facility] [id number], [place] [address]- [address] Jul, [facility] [place] [facility] [address] [facility] [id number] [place] [address]- [address] Jul, IMMUNIZATIONS No Known Immunizations SOCIAL HISTORY Never Assessed REASON FOR VISIT Cough / congestion since Sunday. DELORES Batista. PLAN OF CARE VITAL SIGNS Height 61 in 2017-06-27 Weight 157 lbs 2017-06-27 Temperature 98.1 degrees Fahrenheit 2017-06-27 Heart Rate 88 bpm 2017-06-27 Respiratory Rate 18 2017-06-27 BMI 29.66 kg/m2 2017-06-27 Blood pressure systolic 124 mmHg 2017-06-27 Blood pressure diastolic 72 mmHg 2017-06-27 MEDICATIONS Medication Instructions Dosage Frequency Start Date End Date Duration Status ZyrTEC 10 mg 1 tablet by Oral route 1 time per day Dec, Active PredniSONE 20 mg Orally Once a day 2 tablets 24h Jun, Jun, 05 days Active Doxycycline Hyclate 100 MG Orally every 12 hrs 1 capsule 12h Jun, Jun, 5 day(s) Active Albuterol Sulfate (2.5 MG/3ML) 0.083% Inhalation 4 times a day 3 ml 6h Jun, Active RESULTS No Results PROCEDURES No Known procedures INSTRUCTIONS MEDICATIONS ADMINISTERED No Known Medications MEDICAL (GENERAL) HISTORY Type Description Date Medical History asthma Medical History breast fibrocystic disease Medical History cholecystitis (05/2015) Medical History Recurrent streptococcal tonsillitis Hospitalization History childbirth Hospitalization History Lacerated kidney and liver 2008
--- OUTSIDE RECORDS SUMMARY | 2018-11-09 11:10 | XMS REPORT | Continuity of Care Document ---
Author Author [facility] Address Unknown Phone Unavailable Allergies Active Description Code Type Severity Reaction Onset Reported/Identified Relationship to Patient Clinical Status Yes HYDROCODONE BITARTRATE HYDROCODONE BITARTRA MODERATE Yes HYDROCODONE BITARTRATE MODERATE DERMATOLOGICAL - HIV Yes hydrocodone [id number] Drug Allergy Moderate N/A 12/15/2012 Yes Hydrocodone Drug Allergy 01/10/2013 Yes Hydrocodone Drug Allergy N/A N/A 01/10/2013 Yes codeine [id number] Drug Allergy Unknown N/A 11/29/2014 Yes codeine Drug Allergy N/A N/A 12/09/2014 Medications Medication Packaging Start Date Stop Date Route Dosage Sig ORPHENADRINE INJ 60 MG/2CC (NORFLEX) MG 11/08/2016 11/08/2016 ONCE&1714 KETOROLAC VIAL INJ 30 MG/CC (TORADOL VIAL) MG 11/08/2016 11/08/2016 ONCE&1714 CYCLOBENZAPRINE TAB 10 MG (FLEXERIL) MG 11/08/2016 11/08/2016 ONCE&1736 Problems Date Dx Coded Attending Type Code Diagnosis Diagnosed By 08/07/2012 JOHN LARRY APRN A V74.1 TB SCREENING 08/07/2012 V74.1 TB SCREENING 08/07/2012 JOHN LARRY APRN A V74.1 TB SCREENING 08/07/2012 JOHN LARRY APRN A V74.1 TB SCREENING 08/07/2012 SHAWNEE HANEY APRNINA R V74.1 TB SCREENING 08/07/2012 DUSTY MORALES APRN V74.1 TB SCREENING 08/07/2012 LYNDON ZHAO KEITH R V74.1 TB SCREENING 08/07/2012 JOHN LARRY APRN A V74.1 TB SCREENING 08/07/2012 FELY MCCULLOUGH DO V74.1 TB SCREENING 08/07/2012 PÉREZ PELLET MILL OPERATOR, JAZZ R V74.1 TB SCREENING 08/07/2012 ELISA ZHAO, JAZZ R V74.1 TB SCREENING 08/07/2012 KENDY ZHAO, JOHN A V74.1 TB SCREENING 08/07/2012 LYNDON ZHAO, KEITH R V74.1 TB SCREENING 08/07/2012 LYNDON ZHAO, KEITH R V74.1 TB SCREENING 12/15/2012 Ot 490 BRONCHITIS NOS 12/15/2012 Ot 786.9 RESP SYS/ CHEST SYMP NEC 01/10/2013 KENDY APRN, JOHN A V25.9 CONTRACEPTION MANAGEMENT 01/10/2013 KENDY PELLET MILL OPERATOR, JOHN A V74.5 STD SCREEN 01/10/2013 V25.9 CONTRACEPTION MANAGEMENT 01/10/2013 V74.5 STD SCREEN 01/10/2013 KENDYUMESH ZHAO, JOHN A V25.9 CONTRACEPTION MANAGEMENT 01/10/2013 KENDY APRN, JOHN A V74.5 STD SCREEN 01/10/2013 LUCAS LARRY APRNIDI A V25.9 CONTRACEPTION MANAGEMENT 01/10/2013 KENDY ZHAO, JOHN A V74.5 STD SCREEN 01/10/2013 LYNDON ZHAO, KEITH R V25.9 CONTRACEPTION MANAGEMENT 01/10/2013 LYNDON ZHAO, KEITH R V74.5 STD SCREEN 01/10/2013 ANDREW ZHAO, DUSTY S V25.9 CONTRACEPTION MANAGEMENT 01/10/2013 ANDREW ZHAO, DUSTY S V74.5 STD SCREEN 01/10/2013 LYNDON ZHAO, KEITH R V25.9 CONTRACEPTION MANAGEMENT 01/10/2013 LYNDON ZHAO, KEITH R V74.5 STD SCREEN 01/10/2013 KENDY APRN, JOHN A V25.9 CONTRACEPTION MANAGEMENT 01/10/2013 KENDY APRN, JOHN A V74.5 STD SCREEN 01/10/2013 MCCULLOUGH DO, FELY K V25.9 CONTRACEPTION MANAGEMENT 01/10/2013 MCCULLOUGH DO, FELY K V74.5 STD SCREEN 01/10/2013 ELISA ZHAO JAZZ R V25.9 CONTRACEPTION MANAGEMENT 01/10/2013 ELISA ZHAO JAZZ R V74.5 STD SCREEN 01/10/2013 ELISA ZHAO JAZZ R V25.9 CONTRACEPTION MANAGEMENT 01/10/2013 PÉREZ PELLET MILL OPERATOR, JAZZ R V74.5 STD SCREEN 01/10/2013 KENDY PELLET MILL OPERATOR, JOHN A V25.9 CONTRACEPTION MANAGEMENT 01/10/2013 KENDY PELLET MILL OPERATOR, JOHN A V74.5 STD SCREEN 01/10/2013 LYNODN PELLET MILL OPERATOR, KEITH R V25.9 CONTRACEPTION MANAGEMENT 01/10/2013 LYNDON PELLET MILL OPERATOR, KEITH R V74.5 STD SCREEN 01/10/2013 LYNDON LOPEZN, KEITH R V25.9 CONTRACEPTION MANAGEMENT 01/10/2013 LYNDON LOPEZN, KEITH R V74.5 STD SCREEN 07/23/2013 ANTONIA CHRISTIAN DO Ot 473.9 CHRONIC SINUSITIS NOS 07/23/2013 ANTONIA CHRISTIAN DO Ot 478.19 OTHER DISEASE OF NASAL CAVITY AND SINUSE 07/23/2013 ANTONIA CHRISTIAN DO Ot 490 BRONCHITIS NOS 11/30/2013 KASI FERNANDEZ, DICK Hernandez Ot 466.0 ACUTE BRONCHITIS 11/30/2013 KASI FERNANDEZ, DICK Hernandez Ot 786.05 SHORTNESS OF BREATH 01/06/2014 LYNDON LOPEZN, KEITH R 463 ACUTE TONSILLITIS 01/06/2014 LYNDON LOPEZN, KEITH R 477.0 ALLERGIC RHINITIS DUE TO POLLEN 01/06/2014 ANDREW ZHAO DUSTY S 463 ACUTE TONSILLITIS 01/06/2014 ANDREW ZHAO DUSTY S 477.0 ALLERGIC RHINITIS DUE TO POLLEN 01/06/2014 LYNDON LOPEZN, KEITH R 463 ACUTE TONSILLITIS 01/06/2014 LYNDON ZHAO, KEITH R 477.0 ALLERGIC RHINITIS DUE TO POLLEN 01/06/2014 KENDY ZHAO, JOHN A 463 ACUTE TONSILLITIS 01/06/2014 KENDY PELLET MILL OPERATOR, JOHN A 477.0 ALLERGIC RHINITIS DUE TO POLLEN 01/06/2014 MCCULLOUGH DO, FELY K 463 ACUTE TONSILLITIS 01/06/2014 MCCULLOUGH DO, FELY K 477.0 ALLERGIC RHINITIS DUE TO POLLEN 01/06/2014 ELISA ZHAO, JAZZ R 463 ACUTE TONSILLITIS 01/06/2014 ELISA ZHAO, JAZZ R 477.0 ALLERGIC RHINITIS DUE TO POLLEN 01/06/2014 REANNA PÉREZ APRNRICIA R 463 ACUTE TONSILLITIS 01/06/2014 PÉREZ PELLET MILL OPERATOR, JAZZ R 477.0 ALLERGIC RHINITIS DUE TO POLLEN 01/06/2014 KENDY PELLET MILL OPERATOR, JOHN A 463 ACUTE TONSILLITIS 01/06/2014 KENDY PELLET MILL OPERATOR, JOHN A 477.0 ALLERGIC RHINITIS DUE TO POLLEN 01/06/2014 LYNDON PELLET MILL OPERATOR, KEITH R 463 ACUTE TONSILLITIS 01/06/2014 YLNDON PELLET MILL OPERATOR, KEITH R 477.0 ALLERGIC RHINITIS DUE TO POLLEN 01/06/2014 LYNDON PELLET MILL OPERATOR, KEITH R 463 ACUTE TONSILLITIS 01/06/2014 LYNDON PELLET MILL OPERATOR, KEITH R 477.0 ALLERGIC RHINITIS DUE TO POLLEN 02/14/2014 ANDREW PELLET MILL OPERATOR, DUSTY S 382.9 UNSPECIFIED OTITIS MEDIA 02/14/2014 LYNDON PELLET MILL OPERATOR, KEITH R 382.9 UNSPECIFIED OTITIS MEDIA 02/14/2014 KENDY PELLET MILL OPERATOR, JOHN A 382.9 UNSPECIFIED OTITIS MEDIA 02/14/2014 MCCULLOUGH DO, FELY K 382.9 UNSPECIFIED OTITIS MEDIA 02/14/2014 ELISA LOPEZN, JAZZ R 382.9 UNSPECIFIED OTITIS MEDIA 02/14/2014 ELISA PELLET MILL OPERATOR, JAZZ R 382.9 UNSPECIFIED OTITIS MEDIA 02/14/2014 KENDY PELLET MILL OPERATOR, JOHN A 382.9 UNSPECIFIED OTITIS MEDIA 02/14/2014 LYNDON PELLET MILL OPERATOR, KEITH R 382.9 UNSPECIFIED OTITIS MEDIA 02/14/2014 LYNDON PELLET MILL OPERATOR, KEITH R 382.9 UNSPECIFIED OTITIS MEDIA 02/20/2014 LYNDON PELLET MILL OPERATOR, KEITH R 388.70 OTALGIA UNSPECIFIED 02/20/2014 LYNDON LOPEZN, KEITH R 780.60 FEVER, UNSPECIFIED 02/20/2014 KENDY PELLET MILL OPERATOR, JOHN A 388.70 OTALGIA UNSPECIFIED 02/20/2014 KENDY PELLET MILL OPERATOR, JOHN A 780.60 FEVER, UNSPECIFIED 02/20/2014 MCCULLOUGH DO, FELY K 388.70 OTALGIA UNSPECIFIED 02/20/2014 MCCULLOUGH DO, FELY K 780.60 FEVER, UNSPECIFIED 02/20/2014 ELISA LOPEZN, JAZZ R 388.70 OTALGIA UNSPECIFIED 02/20/2014 ELISA LOPEZN, JAZZ R 780.60 FEVER, UNSPECIFIED 02/20/2014 ELISA LOPEZN, JAZZ R 388.70 OTALGIA UNSPECIFIED 02/20/2014 REANNA PÉREZ APRNRICIA R 780.60 FEVER, UNSPECIFIED 02/20/2014 KENDY APRN, JOHN A 388.70 OTALGIA UNSPECIFIED 02/20/2014 KENDY LOPEZN, JOHN A 780.60 FEVER, UNSPECIFIED 02/20/2014 LYNDON LOPEZN, KEITH R 388.70 OTALGIA UNSPECIFIED 02/20/2014 LYNDON LOPEZN, KEITH R 780.60 FEVER, UNSPECIFIED 02/20/2014 LYNDON LOPEZN, KEITH R 388.70 OTALGIA UNSPECIFIED 02/20/2014 LYNDON LOPEZN, KEITH R 780.60 FEVER, UNSPECIFIED 03/23/2014 KENDY APRN, JOHN A V25.02 CONTRACEPTION - ANY METHOD 03/23/2014 MCCULLOUGH DO, FELY K V25.02 CONTRACEPTION - ANY METHOD 03/23/2014 BRITT PÉREZ APRNIA R V25.02 CONTRACEPTION - ANY METHOD 03/23/2014 REANNA PÉREZ APRNRICIA R V25.02 CONTRACEPTION - ANY METHOD 03/23/2014 KENDY ZHAO, JOHN A V25.02 CONTRACEPTION - ANY METHOD 03/23/2014 LYNDON ZHAO, KEITH R V25.02 CONTRACEPTION - ANY METHOD 03/23/2014 LYNDON ZHAO, KEITH R V25.02 CONTRACEPTION - ANY METHOD 05/18/2014 MCCULLOUGH DO, FELY K V72.41 TEST NEGATIVE RESULT 05/18/2014 REANNA PÉREZ APRNRICIA R V72.41 TEST NEGATIVE RESULT 05/18/2014 REANNA PÉREZ APRNRICIA R V72.41 TEST NEGATIVE RESULT 05/18/2014 JOHN LARRY APRN A V72.41 TEST NEGATIVE RESULT 05/18/2014 LYNDON ZHAO, KEITH R V72.41 TEST NEGATIVE RESULT 05/18/2014 LYNDON ZHAO, KEITH R V72.41 TEST NEGATIVE RESULT 06/04/2014 BRITT PÉREZ APRNIA R 110.5 TINEA CORPORIS 06/04/2014 REANNA PÉREZ APRNRICIA R 110.5 TINEA CORPORIS 06/04/2014 JOHN LARRY APRN A 110.5 TINEA CORPORIS 06/04/2014 LYNDON ZHAO, KEITH R 110.5 TINEA CORPORIS 06/04/2014 LYNDON ZHAO, KEITH R 110.5 TINEA CORPORIS 06/25/2014 REANNA PÉREZ APRNRICIA R 462 ACUTE PHARYNGITIS 06/25/2014 REANNA PÉREZ APRNRICIA R 784.91 POSTNASAL DRIP 06/25/2014 LUCAS LARRY APRNIDI A 462 ACUTE PHARYNGITIS 06/25/2014 KENDY ZHAO, JOHN A 784.91 POSTNASAL DRIP 06/25/2014 LYNDON ZHAO, KEITH R 462 ACUTE PHARYNGITIS 06/25/2014 LYNDON ZHAO, KEITH R 784.91 POSTNASAL DRIP 06/25/2014 LYNDON ZHAO, KEITH R 462 ACUTE PHARYNGITIS 06/25/2014 LYNDON ZHAO, KEITH R 784.91 POSTNASAL DRIP 07/28/2014 GINO ANTONIA K Ot 558.9 NONINF GASTROENTERIT NEC 07/28/2014 ANTONIA CHRISTIAN DO Ot 599.0 URIN TRACT INFECTION NOS 07/28/2014 ANTONIA CHRISTIAN DO K Ot 787.02 NAUSEA ALONE 08/04/2014 LUCAS LARRY APRNIDI A 599.0 URINARY TRACT INFECTION 08/04/2014 JOHN LARRY APRN A V25.01 CONTRACEPTION - ORAL CONTRACEPTION 08/04/2014 JOHN LARRY APRN A V72.31 WRAPPER SHEETER EXAM, ROUTINE 08/04/2014 KENDY ZHAO JOHN A V76.10 BREAST CANCER SCREENING 08/04/2014 JOHN LARRY APRN A V76.2 CERVICAL CANCER SCREENING (PAP SMEAR) 08/04/2014 SHAWNEE HANEY APRNINA R 599.0 URINARY TRACT INFECTION 08/04/2014 LYNDON ZHAO KEITH R V25.01 CONTRACEPTION - ORAL CONTRACEPTION 08/04/2014 LYNDON ZHAO KEITH R V72.31 WRAPPER SHEETER EXAM, ROUTINE 08/04/2014 SHAWNEE HANEY APRNINA R V76.10 BREAST CANCER SCREENING 08/04/2014 LYNDON ZHAO KEITH R V76.2 CERVICAL CANCER SCREENING (PAP SMEAR) 08/04/2014 LYNDON ZHAO KEITH R 599.0 URINARY TRACT INFECTION 08/04/2014 LYNDON ZHAO KEITH R V25.01 CONTRACEPTION - ORAL CONTRACEPTION 08/04/2014 LYNDON ZHAO KEITH R V72.31 WRAPPER SHEETER EXAM, ROUTINE 08/04/2014 LYNDON ZHAO, KEITH R V76.10 BREAST CANCER SCREENING 08/04/2014 LYNDON ZHAO, KEITH R V76.2 CERVICAL CANCER SCREENING (PAP SMEAR) 08/21/2014 ANTONIA CHRISTIAN DO Ot 558.9 NONINF GASTROENTERIT NEC 08/21/2014 ANTONIA CHRISTIAN DO K Ot 599.0 URIN TRACT INFECTION NOS 08/21/2014 ANTONIA CHRISTIAN DO K Ot 787.03 VOMITING ALONE 09/19/2014 KASI FERNANDEZ, DICK Hernandez Ot 466.0 ACUTE BRONCHITIS 09/19/2014 KASI FERNANDEZ, DICK Hernandez Ot 786.05 SHORTNESS OF BREATH 09/20/2014 KATHLEEN FERNANDEZ, LAYO Cheema Ot 490 BRONCHITIS NOS 09/20/2014 KATHLEEN FERNANDEZ, LAYO Cheema Ot 786.2 COUGH 11/27/2014 LYNDON LOPEZN, KEITH R 461.9 SINUSITIS ACUTE 11/27/2014 LYNDON LOPEZN, KEITH R 786.2 COUGH 11/27/2014 LYNDON LOPEZN, KEITH R 461.9 SINUSITIS ACUTE 11/27/2014 LYNDON LOPEZN, KEITH R 786.2 COUGH 11/29/2014 GINO MERCEDES, ANTONIA K Ot 466.0 ACUTE BRONCHITIS 11/29/2014 GINO MERCEDES, ANTONIA K Ot 493.90 ASTHMA, UNSPECIFIED 11/29/2014 GINO MERCEDES, ANTONIA K Ot 786.2 COUGH 12/09/2014 LYNDON LOPEZN, KEITH R 611.72 LUMP OR MASS IN BREAST 12/24/2014 LYNDON ZHAO, KEITH R 610.1 DIFFUSE CYSTIC MASTOPATHY 01/18/2015 SANFORD KOHLER PELLET MILL OPERATOR Ot 300.00 ANXIETY STATE NOS 01/18/2015 SANFORD KOHLER PELLET MILL OPERATOR Ot 466.0 ACUTE BRONCHITIS 01/18/2015 SANFORD KOHLER PELLET MILL OPERATOR Ot 786.05 SHORTNESS OF BREATH 03/04/2015 GINO MERCEDES, ANTONIA K Ot 848.3 03/04/2015 GINO , ANTONIA K Ot 848.8 03/04/2015 GINO , ANTONIA K Ot 959.11 03/04/2015 GINO , ANTONIA K Ot E000.8 03/04/2015 GINO , ANTONIA K Ot E816.0 08/15/2015 ROMMEL DAVID Ot O23.41 UNSP INFCT OF URINARY TRACT IN 08/15/2015 ROMMEL DAVID Ot Z3A.01 LESS THAN 8 WEEKS GESTATION OF 09/16/2015 ASUNCION CARVER MD Ot N63 09/16/2015 ASUNCION CARVER MD Ot O99.89 09/16/2015 ASUNCION CARVER MD Ot Z3A.00 09/16/2015 ASUNCION CARVER MD Ot N63 09/16/2015 ASUNCION CARVER MD Ot O99.89 09/16/2015 ASUNCION CARVER MD Ot Z3A.00 09/21/2015 ASUNCION CARVER MD Ot N63 09/21/2015 ASUNCION CARVER MD Ot O99.89 09/21/2015 ASUNCION CARVER MD Ot Z3A.00 09/21/2015 ASUNCION CARVER MD Ot N63 09/21/2015 ASUNCION CARVER MD Ot O99.89 09/21/2015 ASUNCION CARVER MD Ot Z3A.00 09/22/2015 ASUNCION CARVER MD Ot N63 09/22/2015 ASUNCION CARVER MD Ot O99.89 09/22/2015 ASUNCION CARVER MD Ot Z3A.00 09/22/2015 ROMMEL DAVID Ot O21.0 MILD HYPEREMESIS GRAVIDARUM 09/22/2015 ROMMEL DAVID Ot Z3A.10 10 WEEKS GESTATION OF 09/24/2015 ASUNCION CARVER MD Ot N63 09/24/2015 ASUNCION CARVER MD Ot O99.89 09/24/2015 ASUNCION CARVER MD Ot Z3A.00 10/05/2015 СВЕТЛАНА BARKLEY MD Ot O99.89 OTH DISEASES AND CONDITIONS COMPL PREG/C 10/05/2015 СВЕТЛАНА BARKLEY MD Ot R55 SYNCOPE AND COLLAPSE 10/05/2015 СВЕТЛАНА BARKLEY MD Ot Z3A.12 12 WEEKS GESTATION OF 12/17/2015 ASUNCION CARVER MD Ot Z36 12/26/2015 ASUNCION CARVER MD, Ot M54.9 DORSALGIA, UNSPECIFIED 12/26/2015 ASUNCION CARVER MD, Ot O23.42 UNSP INFCT OF URINARY TRACT IN 12/26/2015 ASUNCION CARVER MD, Ot O99.89 OTH DISEASES AND CONDITIONS COMPL PREG/C 12/26/2015 ASUNCION CARVER MD, Ot Z3A.24 24 WEEKS GESTATION OF 12/29/2015 ASUNCION CARVER MD Ot M54.9 12/29/2015 ASUNCION CARVER MD, Ot O23.42 12/29/2015 ASUNCION CARVER MD, Ot O99.89 12/29/2015 ASUNCION CARVER MD, Ot Z3A.24 02/09/2016 ASUNCION CARVER MD, Ot O47.03 FALSE LABOR BEFORE 37 COMPLETED WEEKS OF 02/09/2016 ASUNCION CARVER MD, Ot Z3A.30 30 WEEKS GESTATION OF 03/01/2016 ASUNCION CARVER MD, Ot O99.89 OTH DISEASES AND CONDITIONS COMPL PREG/C 03/01/2016 ASUNCION CARVER MD, Ot R42 DIZZINESS AND GIDDINESS 03/01/2016 ASUNCION CARVER MD, Ot Z3A.28 28 WEEKS GESTATION OF 03/07/2016 ASUNCION CARVER MD, Ot O99.89 OTH DISEASES AND CONDITIONS COMPL PREG/C 03/07/2016 ASUNCION CARVER MD, Ot R42 DIZZINESS AND GIDDINESS 03/07/2016 ASUNCION CARVER MD Ot Z3A.28 28 WEEKS GESTATION OF 03/07/2016 ASUNCION CARVER MD Ot N89.8 OTHER SPECIFIED NONINFLAMMATORY DISORDER 03/07/2016 ASUNCION CARVER MD Ot O99.89 OTH DISEASES AND CONDITIONS COMPL PREG/C 03/07/2016 ASUNCION CARVER MD, Ot Z3A.33 33 WEEKS GESTATION OF 03/09/2016 ASUNCION CARVER MD, Ot N89.8 OTHER SPECIFIED NONINFLAMMATORY DISORDER 03/09/2016 ASUNCION CARVER MD, Ot O99.89 OTH DISEASES AND CONDITIONS COMPL PREG/C 03/09/2016 ASUNCION CARVER MD, Ot Z3A.33 33 WEEKS GESTATION OF 03/15/2016 ASUNCION CARVER MD, Ot N94.89 OTH COND ASSOC W FEMALE GENITAL ORGANS A 03/15/2016 ASUNCION CARVER MD Ot O99.89 OTH DISEASES AND CONDITIONS COMPL PREG/C 03/15/2016 ASUNCION CARVER MD Ot Z3A.32 32 WEEKS GESTATION OF 03/21/2016 ASUNCION CARVER MD Ot N94.89 OTH COND ASSOC W FEMALE GENITAL ORGANS A 03/21/2016 ASUNCION CARVER MD Ot O99.89 OTH DISEASES AND CONDITIONS COMPL PREG/C 03/21/2016 ASUNCION CARVER MD, Ot Z3A.32 32 WEEKS GESTATION OF 03/23/2016 ASUNCION CARVER MD Ot N94.89 OTH COND ASSOC W FEMALE GENITAL ORGANS A 03/23/2016 ASUNCION CARVER MD Ot O99.89 OTH DISEASES AND CONDITIONS COMPL PREG/C 03/23/2016 ASUNCION CARVER MD, Ot Z3A.32 32 WEEKS GESTATION OF 03/24/2016 LOS ERAZO MD Ot N85.8 OTHER SPECIFIED NONINFLAMMATORY DISORDER 03/24/2016 LOS ERAZO MD Ot O99.89 OTH DISEASES AND CONDITIONS COMPL PREG/C 03/24/2016 LOS ERAZO MD Ot Z3A.36 36 WEEKS GESTATION OF 04/08/2016 LOS ERAZO MD Ot M54.9 DORSALGIA, UNSPECIFIED 04/08/2016 OLS ERAZO MD Ot O99.89 OTH DISEASES AND CONDITIONS COMPL PREG/C 04/08/2016 LOS ERAZO MD Ot Z3A.38 38 WEEKS GESTATION OF 04/09/2016 LOS ERAZO MD Ot N93.9 ABNORMAL UTERINE AND VAGINAL BLEEDING, U 04/09/2016 LOS ERAZO MD Ot O99.89 OTH DISEASES AND CONDITIONS COMPL PREG/C 04/09/2016 LOS ERAZO MD Ot Z3A.38 38 WEEKS GESTATION OF 04/12/2016 LOS ERAZO MD Ot N85.8 OTHER SPECIFIED NONINFLAMMATORY DISORDER 04/12/2016 LOS ERAZO MD Ot O99.89 OTH DISEASES AND CONDITIONS COMPL PREG/C 04/12/2016 LOS ERAZO MD, Ot Z3A.36 36 WEEKS GESTATION OF 04/12/2016 ASUNCION CARVER MD, Ot N63 UNSPECIFIED LUMP IN BREAST 04/12/2016 ASUNCION CARVER MD, Ot O99.89 OTH DISEASES AND CONDITIONS COMPL PREG/C 04/12/2016 ASUNCION CARVER MD, Ot Z3A.00 WEEKS OF GESTATION OF NOT SPEC 04/12/2016 ASUNCION CARVER MD, Ot Z36 ENCOUNTER FOR SCREENING OF MOT 04/13/2016 LOS ERAZO MD, Ot N93.9 ABNORMAL UTERINE AND VAGINAL BLEEDING, U 04/13/2016 LOS ERAZO MD, Ot O99.89 OTH DISEASES AND CONDITIONS COMPL PREG/C 04/13/2016 LOS ERAZO MD, Ot Z3A.38 38 WEEKS GESTATION OF 04/14/2016 ASUNCION CARVER MD, Ot O80 ENCOUNTER FOR FULL-TERM UNCOMPLICATED DE 04/14/2016 ASUNCION CARVER MD, Ot Z23 ENCOUNTER FOR IMMUNIZATION 04/14/2016 ASUNCION CARVER MD, Ot Z37.0 SINGLE LIVE 04/14/2016 ASUNCION CARVER MD, Ot Z3A.39 39 WEEKS GESTATION OF 06/05/2016 ROMMEL DAVID Ot I88.0 NONSPECIFIC MESENTERIC LYMPHADENITIS 06/05/2016 ROMMEL DAVID Ot K59.00 CONSTIPATION, UNSPECIFIED 06/05/2016 ROMMEL DAVID Ot N39.0 URINARY TRACT INFECTION, SITE NOT SPECIF 06/05/2016 ROMMEL DAVID Ot R10.11 RIGHT UPPER QUADRANT PAIN 06/07/2016 ROMMEL DAVID Ot I88.0 NONSPECIFIC MESENTERIC LYMPHADENITIS 06/07/2016 ROMMEL DAVID Ot K59.00 CONSTIPATION, UNSPECIFIED 06/07/2016 ROMMEL DAVID Ot N39.0 URINARY TRACT INFECTION, SITE NOT SPECIF 06/07/2016 ROMMEL DAVID Ot R10.11 RIGHT UPPER QUADRANT PAIN 11/08/2016 Sanford Kohler 959.19 OTHER INJURY OF OTHER SITES OF TRUNK 11/08/2016 Sanford Kohler S39.92XA UNSPECIFIED INJURY OF LOWER BACK, INITIAL ENCOUNTER 08/05/2018 W 719.46 PAIN IN JOINT INVOLVING LOWER LEG 08/05/2018 W M25.561 PAIN IN RIGHT KNEE 08/26/2018 Ot R93.7 ABNORMAL FINDINGS ON DIAGNOSTIC IMAGING 08/26/2018 Ot S89.92XA UNSPECIFIED INJURY OF LEFT LOWER LEG, IN 09/04/2018 W 719.46 PAIN IN JOINT INVOLVING LOWER LEG 09/04/2018 W M25.561 PAIN IN RIGHT KNEE 10/29/2018 Ot R93.7 ABNORMAL FINDINGS ON DIAGNOSTIC IMAGING 10/29/2018 Ot S89.92XA UNSPECIFIED INJURY OF LEFT LOWER LEG, IN 11/07/2018 Ot R93.7 ABNORMAL FINDINGS ON DIAGNOSTIC IMAGING 11/07/2018 Ot S89.92XA UNSPECIFIED INJURY OF LEFT LOWER LEG, IN Procedures Code Description [place] [address] THERAPUTIC INJ SQ/IM 01/10/2013 67354 URINE TEST (IN- HOUSE) 01/10/2013 J1050 DEPO PROVERA 01/10/2013 85269 GC/CHLAM URINE (STATE) 01/13/2013 23277 THERAPUTIC INJ SQ/IM 04/02/2013 J1050 DEPO PROVERA 04/02/2013 78738 URINE TEST (IN- HOUSE) 04/02/2013 24529 THERAPUTIC INJ SQ/IM 12/10/2013 J1050 DEPO PROVERA 12/10/2013 80912 TEST, URINE (IN- HOUSE) 12/10/2013 10177 GC/CHLAM URINE (STATE) 12/10/2013 58755 CULTURE THROAT 01/08/2014 16423 TEST, URINE (IN- HOUSE) 03/23/2014 39805 TEST, URINE (IN- HOUSE) 05/18/2014 79477 STREP A (IN-HOUSE) 06/25/2014 50114 GC/CHLAM PROBE (STATE) 08/04/2014 91247 PAP SMEAR 08/04/2014 Q0091 PAP SMEAR OBTAIN SMEAR 08/04/2014 29306 TEST, URINE (IN- HOUSE) 08/04/2014 71766 TRICHOMONAS (IN-HOUSE) 08/04/2014 02935 CULTURE UROGENITAL 08/05/2014 13909 STREP A (IN-HOUSE) 11/27/2014 [id number] 04/13/2016 [id number] 04/13/2016 Results Test Result Range Urine beta human chorionic gonadotropin (hCG) measurement - 06/05/16 16:31 Urine beta human chorionic gonadotropin (hCG) measurement NEGATIVE NEGATIVE Complete urinalysis with reflex to culture - 06/05/16 16:31 Urine color determination YELLOW NRG Urine clarity determination SLIGHTLY CLOUDY NRG Urine pH measurement by test strip 6 5-9 Specific gravity of urine by test strip 1.020 1.016- 1.022 Urine protein assay by test strip, semi-quantitative NEGATIVE NEGATIVE Urine glucose detection by automated test strip NEGATIVE NEGATIVE Erythrocytes detection in urine sediment by light microscopy 5+ NEGATIVE Urine ketones detection by automated test strip NEGATIVE NEGATIVE Urine nitrite detection by test strip NEGATIVE NEGATIVE Urine total bilirubin detection by test strip NEGATIVE NEGATIVE Urine urobilinogen measurement by automated test strip (mass/volume) NORMAL NORMAL Urine leukocyte esterase detection by dipstick 3+ NEGATIVE Automated urine sediment erythrocyte count by microscopy (number/high power field) > [HPF] NRG Automated urine sediment leukocyte count by microscopy (number/high power field ) [HPF] NRG Bacteria detection in urine sediment by light microscopy FEW NRG Squamous epithelial cells detection in urine sediment by light microscopy >50 NRG Crystals detection in urine sediment by light microscopy NONE NRG Casts detection in urine sediment by light microscopy NONE NRG Mucus detection in urine sediment by light microscopy NEGATIVE NRG Complete urinalysis with reflex to culture YES NRG Bacterial urine culture - 06/05/16 16:31 URINE CULTURE RESULTS 10,000/ML - 100,000/ML NRG Comprehensive metabolic panel - 06/05/16 17:34 Serum or plasma sodium measurement (moles/volume) 142 mmol/L 135-145 Serum or plasma potassium measurement (moles/volume) 3.9 mmol/L 3.6-5.0 Serum or plasma chloride measurement (moles/volume) 111 mmol/L 98-107 Carbon dioxide 21 mmol/L 21-32 Serum or plasma anion gap determination (moles/volume) 10 mmol/L 5-14 Serum or plasma urea nitrogen measurement (mass/volume) 16 mg/dL 7-18 Serum or plasma creatinine measurement (mass/volume) 0.85 mg/dL 0.60-1.30 Serum or plasma urea nitrogen/creatinine mass ratio 19 NRG Serum or plasma creatinine measurement with calculation of estimated glomerular filtration rate > NRG Serum or plasma glucose measurement (mass/volume) 86 mg/dL 70-105 Serum or plasma calcium measurement (mass/volume) 9.2 mg/dL 8.5-10.1 Serum or plasma total bilirubin measurement (mass/volume) 0.3 mg/dL 0.1-1.0 Serum or plasma alkaline phosphatase measurement (enzymatic activity/volume) 72 U/L 40-136 Serum or plasma aspartate aminotransferase measurement (enzymatic activity/ volume) 45 U/L 5-34 Serum or plasma alanine aminotransferase measurement (enzymatic activity/volume ) 86 U/L 0-55 Serum or plasma protein measurement (mass/volume) 7.3 g/dL 6.4-8.2 Serum or plasma albumin measurement (mass/volume) 4.2 g/dL 3.2-4.5 Lipase - 06/05/16 17:34 Lipase 50 U/L 8-78 Complete blood count (CBC) with automated white blood cell (WBC) differential - 06/05/16 17:34 Blood leukocytes automated count (number/volume) 7.7 10*3/uL 4.3-11.0 Blood erythrocytes automated count (number/volume) 4.44 10*6/uL 4.35-5.85 Venous blood hemoglobin measurement (mass/volume) 11.5 g/dL 11.5-16.0 Blood hematocrit (volume fraction) 36 % 35-52 Automated erythrocyte mean corpuscular volume 80 [foz_us] 80-99 Automated erythrocyte mean corpuscular hemoglobin (mass per erythrocyte) 26 pg 25-34 Automated erythrocyte mean corpuscular hemoglobin concentration measurement ( mass/volume) 32 g/dL 32-36 Automated erythrocyte distribution width ratio 15.3 % 10.0-14.5 Automated blood platelet count (count/volume) 383 10*3/uL 130-400 Automated blood platelet mean volume measurement 9.9 [foz_us] 7.4-10.4 Automated blood neutrophils/100 leukocytes 48 % 42-75 Automated blood lymphocytes/100 leukocytes 37 % 12-44 Blood monocytes/100 leukocytes 10 % 0-12 Automated blood eosinophils/100 leukocytes 4 % 0-10 Automated blood basophils/100 leukocytes 1 % 0-10 Blood neutrophils automated count (number/volume) 3.7 10*3 1.8-7.8 Blood lymphocytes automated count (number/volume) 2.8 10*3 1.0-4.0 Blood monocytes automated count (number/volume) 0.7 10*3 0.0-1.0 Automated eosinophil count 0.3 10*3/uL 0.0-0.3 Automated blood basophil count (count/volume) 0.1 10*3/uL 0.0-0.1 CBC - 05/16/18 11:50 WHITE BLOOD CELL COUNT 7.0 Thousand/uL 3.8-10.8 RED BLOOD CELL COUNT 4.52 Million/uL 3.80-5.10 HEMOGLOBIN 11.8 g/dL 11.7-15.5 HEMATOCRIT 36.0 % 35.0-45.0 MCV 79.6 fL 80.0-100.0 MCH 26.1 pg 27.0-33.0 MCHC 32.8 g/dL 32.0-36.0 RDW 14.4 % 11.0-15.0 PLATELET COUNT 366 Thousand/uL 140-400 MPV 9.7 fL 7.5-12.5 ABSOLUTE NEUTROPHILS 3878 cells/uL 3752-0933 ABSOLUTE LYMPHOCYTES 2408 cells/uL 850-3900 ABSOLUTE MONOCYTES 504 cells/uL 200-950 ABSOLUTE EOSINOPHILS 168 cells/uL 15-500 ABSOLUTE BASOPHILS 42 cells/uL 0-200 NEUTROPHILS 55.4 % NRG LYMPHOCYTES 34.4 % NRG MONOCYTES 7.2 % NRG EOSINOPHILS 2.4 % NRG BASOPHILS 0.6 % NRG Urinalysis - 11/06/18 15:23 Icotest N/A Negative Urine Volume Urine Volume Sufficient (10mL) Urine Yeast No Yeast present Urine-Appearance Clear Clear Urine-Bacteria 3+ Urine-Bilirubin Negative Negative Urine-Blood 2+ Negative Urine-Color Yellow Colorless-Lt. Yellow Urine-Epithelial Cells 0-5/HPF Urine-Glucose Negative Negative Urine-Ketones Negative Negative Urine-Leukocytes 2+ Negative Urine-Mucus 1+ Urine-Nitrite Negative Negative Urine-Other Culture to follow Urine-pH 7.0 5-8.5 Urine-Protein Negative Negative Urine-RBC Few/HPF Urine-Specific [place] 1.020 1.000-1.030 Urine-WBC 10-20/HPF Urobilinogen 0.2 E.U./dL 0.2-1.0 CBC with Auto Diff - 11/06/18 15:35 Baso% 0.40 % 0.00-2.50 Eos 0.2 K/uL 0.0-0.7 Eos% 2.3 % 0.0-7.0 Hct 40.2 % 36.0-46.0 Hgb 13.1 g/dL 13.0-15.0 Lym 2.84 K/uL 0.60-3.40 Lym% 30.5 % 10.0-50.0 MCH 27.9 pg 27.0-31.0 MCHC 32.6 g/dL 32.0-36.0 MCV 85.7 fL 80.0-97.0 [place]% 8.2 % 0.0-12.0 MPV 9.8 fL 7.4-10.0 [place]% 58.6 % 37.0-80.0 Plt 334 K/uL 150-400 RBC 4.69 M/uL 3.60-5.00 RDW 13.7 % 11.6-14.8 WBC 9.32 K/uL 5.00-10.00 Whitney 5.47 K/uL 2.00-6.90 Liberty 0.8 K/uL 0.0-0.9 Baso 0.0 K/uL 0.0-0.2 Serum or plasma choriogonadotropin measurement (units/volume) - 11/07/18 10:53 Serum or plasma choriogonadotropin measurement (units/volume) 31 m[ iU]/mL <5 Encounters ACCT No. Visit Date/Time Discharge Status Pt. Type Provider Facility Loc./Unit Complaint [id number] 01/27/2015 13:28:00 01/27/2015 23:59:59 CLS Outpatient KEITH HANEY APRN [id number] 11/27/2014 11:48:00 11/27/2014 23:59:59 CLS Outpatient KEITH HANEY APRN [id number] 08/04/2014 09:43:00 08/04/2014 23:59:59 CLS Outpatient JOHN LARRY APRN [id number] 06/25/2014 13:32:00 06/25/2014 23:59:59 CLS Outpatient JAZZ PÉREZ APRN [id number] 06/04/2014 13:55:00 06/04/2014 23:59:59 CLS Outpatient JAZZ PÉREZ APRN [id number] 05/18/2014 12:11:00 05/18/2014 23:59:59 CLS Outpatient FELY MCCULLOUGH DO [id number] 03/23/2014 16:16:00 03/23/2014 23:59:59 CLS Outpatient JOHN LARRY APRN [id number] 02/20/2014 11:00:00 02/20/2014 23:59:59 CLS Outpatient KEITH HANEY APRN [id number] 02/14/2014 14:08:00 02/14/2014 23:59:59 CLS Outpatient DUSTY MORALES APRN [id number] 01/06/2014 10:57:00 01/06/2014 23:59:59 CLS Outpatient KEITH HANEY APRN R [id number] 12/16/2013 00:00:00 12/16/2013 23:59:59 CLS Outpatient JOHN LARRY APRN A [id number] 12/10/2013 15:16:00 12/10/2013 23:59:59 CLS Outpatient JOHN LARRY APRN [id number] 01/10/2013 13:34:00 01/10/2013 23:59:59 CLS Outpatient JOHN LARRY APRN [id number] 04/02/2013 15:57:00 Document Registration [id number] 11/06/2018 15:11:00 11/06/2018 16:45:00 [id number] 11/08/2016 16:30:00 11/08/2016 18:10:00 DIS Outpatient [facility] ER [id number] 08/05/2018 10:02:36 Document Registration [id number] 11/08/2016 17:15:23 Document Registration [id number] 03/05/2015 03:30:05 ACT Document Registration [id number] 10/09/2018 08:00:00 10/09/2018 23:59:59 [facility] [id number] 05/16/2018 11:20:00 Document Registration [id number] 10/29/2018 10:46:00 10/29/2018 23:59:59 CLS Preadmit MEHUL FERNANDEZ, ASUNCION Means [facility] RAD DATING [id number] 06/05/2016 16:03:00 06/05/2016 19:52:00 DIS Emergency ROMMEL DAVID [facility] ER GALL BLADDER PAIN [id number] 04/11/2016 18:56:00 04/14/2016 11:50:00 DIS Outpatient ASUNCION CARVER MD [facility] LD INDUCTION [id number] 04/09/2016 14:32:00 04/09/2016 14:56:00 DIS Outpatient LOS ERAZO MD [facility] [id number] 04/08/2016 09:52:00 04/08/2016 12:25:00 DIS Outpatient LOS ERAZO MD [facility] [id number] 03/24/2016 18:59:00 03/24/2016 20:15:00 DIS Outpatient LOS ERAZO MD [facility] [id number] 03/15/2016 11:34:00 03/15/2016 12:49:00 DIS Outpatient ASUNCION CARVER MD [facility] [id number] 03/07/2016 13:03:00 03/07/2016 14:05:00 DIS Outpatient ASUNCION CARVER MD [facility] [id number] 03/01/2016 12:48:00 03/01/2016 15:30:00 DIS Outpatient ASUNCION CARVER MD [facility] [id number] 02/09/2016 18:15:00 02/09/2016 21:30:00 DIS Outpatient ASUNCION CARVER MD [facility] [id number] 12/26/2015 10:35:00 12/26/2015 12:10:00 DIS Outpatient ASUNCION CARVER MD [facility] [id number] 12/03/2015 15:09:00 12/03/2015 23:59:59 CLS Outpatient ASUNCION CARVER MD [facility] [id number] 10/05/2015 11:55:00 10/05/2015 14:00:00 DIS Emergency СВЕТЛАНА BARKLEY MD [facility] [id number] 09/22/2015 12:56:00 09/22/2015 15:35:00 DIS Emergency ROMMEL DAVID [facility] ER [id number] 09/06/2015 09:19:00 09/06/2015 23:59:59 CLS Outpatient ASUNCION CARVER MD [facility] RAD [id number] 08/15/2015 14:18:00 08/15/2015 15:13:00 DIS Emergency ROMMEL DAVID [facility] ER [id number] 03/04/2015 19:47:00 03/04/2015 22:02:00 DIS Emergency GINO DO ANTONIA Cheema [facility] ER [id number] 01/18/2015 20:08:00 01/18/2015 22:31:00 DIS Emergency SANFORD KOHLER APRN [facility] ER [id number] 11/29/2014 07:15:00 11/29/2014 08:49:00 DIS Emergency GINO DOHOAA Deni [facility] ER [id number] 09/20/2014 07:47:00 09/20/2014 08:53:00 DIS Emergency LAYO WANG MD [facility] ER [id number] 09/19/2014 02:35:00 09/19/2014 04:15:00 DIS Emergency DICK VILLASEÑOR MD [facility] ER [id number] 08/21/2014 00:46:00 08/21/2014 02:11:00 DIS Emergency GINO DO ANTONIA K [facility] ER [id number] 07/28/2014 03:31:00 07/28/2014 04:19:00 DIS Emergency GINO DO ANTONIA K [facility] ER [id number] 12/01/2013 11:22:00 12/01/2013 23:59:59 CLS Outpatient [id number] 11/30/2013 10:00:00 11/30/2013 10:50:00 DIS Emergency DICK VILLASEÑOR MD [facility] ER [id number] 07/23/2013 11:05:00 07/23/2013 13:41:00 DIS Emergency ANTONIA CHRISTIAN DO [facility] ER [id number] 11/07/2018 10:31:00 ACT Outpatient MEHUL FERNANDEZ, ASUNCION Means [facility] LAB LOW QUART [facility] [id number] 08/22/2018 10:55:00 Document Registration [id number] 01/21/2015 16:31:00 Document Registration
--- NOTE | 2018-11-09 11:20 | NUR ---
DR RITCHIE CALLED TO CHECK ON PT. UPDATED ON PT ET HE STATES TO CALL HIM IF WE NEED HIM.
[2018-11-09] MEDS ORDERED: oxyCODONE/APAP 5/325MG (PERCOCET 5) TABLET PO ONE (11:45)
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
[2018-11-09 12:01] VITALS: BP_SYST 108; BP_SYST 114; BP_SYST 116; BP_DIAS 71; BP_DIAS 72; BP_DIAS 83
[2018-11-09 12:06] LABS: BILIRUBIN,URINE NEGATIVE (NEGATIVE); CLARITY,URINE VERY CLOUDY; COLOR,URINE YELLOW; GLUCOSE, URINE (UA) NEGATIVE (NEGATIVE); KETONES,URINE NEGATIVE (NEGATIVE); LEUKOCYTE ESTERASE ,URINE 2+ (NEGATIVE); NITRITE,URINE NEGATIVE (NEGATIVE); PH,URINE 7 (5-9); PROTEIN,URINE 2+ (NEGATIVE); UROBILINOGEN,URINE NORMAL (NORMAL)
[2018-11-09 12:07] LABS: BASOPHILS % (AUTO) 1 % (0-10); EOSINOPHILS # (AUTO) 0.2 10^3/uL (0.0-0.3); EOSINOPHILS % (AUTO) 3 % (0-10); HEMATOCRIT 38 % (35-52); HEMOGLOBIN 12.5 G/DL (11.5-16.0); LYMPHOCYTES # (AUTO) 2.4 X 10^3 (1.0-4.0); LYMPHOCYTES % (AUTO) 30 % (12-44); MEAN CORPUSCULAR HEMOGLOBIN 28 PG (25-34); MEAN CORPUSCULAR HGB CONC 33 G/DL (32-36); MEAN CORPUSCULAR VOLUME 85 FL (80-99); MEAN PLATELET VOLUME 9.6 FL (7.4-10.4); MONOCYTES # (AUTO) 0.7 X 10^3 (0.0-1.0); MONOCYTES % (AUTO) 9 % (0-12); NEUTROPHILS # (AUTO) 4.8 X 10^3 (1.8-7.8); NEUTROPHILS % (AUTO) 59 % (42-75); PLATELET COUNT 319 10^3/uL (130-400); RED CELL DISTRIBUTION WIDTH 14.3 % (10.0-14.5); WHITE BLOOD COUNT 8.2 10^3/uL (4.3-11.0)
[2018-11-09 12:21] LABS: RBC,URINE TNTC /HPF
[2018-11-09 12:22] LABS: BACTERIA,URINE FEW /HPF; INR 1.1 (0.8-1.4); PROTHROMBIN TIME PATIENT 13.7 SEC (12.2-14.7)
[2018-11-09 12:26] LABS: ALANINE AMINOTRANSFERASE 14 U/L (0-55); ALBUMIN 3.9 GM/DL (3.2-4.5); ALKALINE PHOSPHATASE 47 U/L (40-136); BILIRUBIN,TOTAL 0.4 MG/DL (0.1-1.0); BUN/CREATININE RATIO 11; CALCIUM 8.8 MG/DL (8.5-10.1); CARBON DIOXIDE 22 MMOL/L (21-32); CHLORIDE 110 MMOL/L (98-107); GFR ESTIMATED > 60; GLUCOSE 88 MG/DL (70-105); POTASSIUM 3.8 MMOL/L (3.6-5.0); SODIUM 141 MMOL/L (135-145); TOTAL PROTEIN 6.9 GM/DL (6.4-8.2)
[2018-11-09] MEDS ORDERED: OXYC1TAB87 PO (13:17)
--- NOTE | 2018-11-09 13:17 | Diagnostic Imaging Report ---
Examination: Ultrasound pelvis Date: November 09, 2018. Indication: 23-year-old female, positive test. Pelvic pain and bleeding.. Comparison: CT abdomen and pelvis June 05, 2016.. Technique: A sonogram of the pelvis was performed utilizing transabdominal and endovaginal approaches assessing holliday-scale appearance and color Doppler flow. Findings: The uterus measures 9.2 x 5.4 x 4.9 cm. No focal uterine masses are seen. There is no intrauterine gestational sac. The endometrium measures 1.2 cm in diameter. The right ovary measures 2.4 cm x 1.8 cm x 2.6 cm. The left ovary measures 3.1 cm x 1.8 cm x 3.5 cm. No adnexal lesion is seen. There is blood flow to both ovaries. There is a minimal amount of free pelvic fluid. Impression: 1. No demonstrated intrauterine . Recommend correlation. 2. No adnexal mass. Very minimal free pelvic fluid. 3. Normal appearance of the ovaries. 4. Endometrial thickness of 12 mm. Dictated by: Dictated on workstation # [id number]
[2018-11-09 13:29] VITALS: BP 121/74
== END 2018-11-09 13:29 | disposition home or self-care (01) ==
LOC: EDUNIT# 10:55 → ER 10:56
DX: O03.4 Incomplete spontaneous abortion without complication (principal); N39.0 Urinary tract infection, site not specified; J45.909 Unspecified asthma, uncomplicated; Z88.5 Allergy status to narcotic agent; Z82.49 Family history of ischemic heart disease and other diseases of the circulatory system; Z87.442 Personal history of urinary calculi; Z3A.01 Less than 8 weeks gestation of pregnancy
CPT/HCPCS: 36415; 76817; 80053; 81000; 84702; 85025; 85610; 85730

== ENCOUNTER → 2019-07-25 | Outpatient (CLI) | payer BC ==
[~2019-07-25] MED LIST changes: +OXYC1TAB87 PO
== END ==
LOC: LAB 11:34
PROVIDERS: ATTEND Family Medicine
DX: Z34.90 Encounter for supervision of normal pregnancy, unspecified, unspecified trimester (principal); Z3A.00 Weeks of gestation of pregnancy not specified
CPT/HCPCS: 36415; 84702

== ENCOUNTER → 2019-07-25 | Outpatient (CLI) | payer BC ==
--- NOTE | 2019-07-25 10:33 | Diagnostic Imaging Report ---
INDICATION: Right pelvic discomfort. The uterus measures 8.5 x 6.8 x 5.3 cm. The endometrium is thickened up to 2.9 cm. There is moderate fluid in the endometrial canal. There is also a tiny cystic structure in the endometrium which may represent a very early gestational sac. No pole is identified at this time. Right ovary measures 3.3 x 1.8 x 1.6 cm and the left ovary measures 3.3 x 2.3 x 1.9 cm. There is blood flow to both ovaries. No adnexal mass or free fluid is seen. IMPRESSION: There is a tiny cystic structure in the endometrium which may represent a very early gestational sac. No pole is seen at this time. There is some fluid in the endometrial canal as well. Follow-up ultrasound and/or correlation with serial beta hCG levels could be performed to confirm viability. Dictated by: Dictated on workstation # [id number]
== END ==
LOC: RAD 09:19
PROVIDERS: ATTEND Family Medicine
DX: O26.899 Other specified pregnancy related conditions, unspecified trimester (principal); R10.2 Pelvic and perineal pain; Z3A.00 Weeks of gestation of pregnancy not specified
CPT/HCPCS: 76801; 76817

== ENCOUNTER → 2019-08-12 | Outpatient (CLI) | payer BC ==
--- NOTE | 2019-08-12 12:57 | Diagnostic Imaging Report ---
PROCEDURE: US OB SINGLE FETUS <14 WKS. TECHNIQUE: Multiple real-time grayscale images were obtained over the gravid uterus in various projections. INDICATION: dating. COMPARISON: 07/25/2019. FINDINGS: There is now gestational sac with normal morphology appropriately positioned within the uterus in the level of fundus. A small anechoic collection adjacent to the margin of the gestational sac measures 1.5 x 1.0 cm and may represent resolving hank-gestational hemorrhage. This encompasses less than 10% of the gestational sac at its inferior margin. There is an embryo present with a crown-rump length of 1.82 cm which results in an estimated gestational age of 8 weeks and 3 days. heart rate is detected at 176 BPM. Physiologic herniation of the bowel versus less likely residual yolk sac. Both adnexa are imaged and show no concerning abnormality. The ovaries are not identified. No free pelvic fluid. IMPRESSION: 1. Single live intrauterine with an estimated gestational age of 8 weeks and 3 days by crown-rump length. This gives an estimated due date of 03/20/2020. 2. Small subchorionic hemorrhage encompasses less than 10% of the gestational sac. Dictated by: Dictated on workstation # [id number]
== END ==
LOC: RAD 09:29
PROVIDERS: ATTEND Family Medicine
DX: Z34.91 Encounter for supervision of normal pregnancy, unspecified, first trimester (principal); Z3A.08 8 weeks gestation of pregnancy
CPT/HCPCS: 76801

== ENCOUNTER → 2019-11-03 | Outpatient (CLI) | payer BC ==
[~2019-11-03] MED LIST changes: -TRAM50TA2 PO; +TRM50T PO
--- NOTE | 2019-11-03 16:47 | Diagnostic Imaging Report ---
INDICATION: patient, survey. TECHNIQUE: Multiple real-time grayscale images were obtained over the gravid uterus. COMPARISON: 08/12/2019 FINDINGS: A single live intrauterine fetus is seen measuring 20 weeks 1 day in size with normal interval growth compared to the prior study. Fetus is in variable presentation. Amniotic fluid is qualitatively normal. Placenta is posterior and grade 1 with no evidence of previa. heart rate is 149 BPM. survey showed normal-appearing kidneys, bladder, and stomach. Normal-appearing intracranial ventricles are noted. Normal four-chamber heart view as well as three-vessel cord and cord insertion were seen. Normal views of the spine were obtained. Cervical length was 4.8 cm. Maternal adnexa could not be visualized. Biometrical measurements are as follows: Biparietal 4.47 cm, age 19 weeks 4 days. Head circumference 17.60 cm, age 20 weeks 1 days. Abdominal circumference 14.81 cm, age 20 weeks 1 days. Femur length 3.28 cm, age 20 weeks 2 days. Sonographic estimate age: 20 weeks 1 days. Sonographic estimated date of delivery: 03/21/2020. Estimated Weight: 334 gm (+/- 49 gm). LMP percentile: 37%. heart rate: 149 beats per minute. number: 1 of 1. IMPRESSION: Single live intrauterine fetus measuring 20 weeks 1 day in size as above with normal interval growth compared to the previous study. There was no detectable abnormality. Dictated by: Dictated on workstation # [id number]
== END ==
LOC: RAD 14:19
PROVIDERS: ATTEND Family Medicine
DX: Z36.9 Encounter for antenatal screening, unspecified (principal); Z3A.20 20 weeks gestation of pregnancy
CPT/HCPCS: 76805

== ENCOUNTER 2019-12-16 07:01 | Outpatient (CLI) | payer BC ==
[~2019-12-16] VITALS: Ht 154.9 cm; Wt 76.5 kg
--- NOTE | 2019-12-16 06:55 | NUR ---
DIONTE HACKETT presented to unit via amb from home, accompanied by spouse, with c/o DECREASED MOVEMENT. DIONTE HACKETT weighed, gowned, voided, and to bed. EFHM and TOCO applied, VS taken. DIONTE HACKETT oriented to bed controls, call light, TV, heat, and A/C controls.
[2019-12-16 07:04] VITALS: BP 119/59
--- NOTE | 2019-12-16 07:25 | NUR ---
DR. CARVER NOTIFIED OF PT'S ARRIVAL AND COMPLAINT. ORDERS RECEIVED.
[2019-12-16 07:43] LABS: BILIRUBIN,URINE NEGATIVE (NEGATIVE); CLARITY,URINE CLOUDY; COLOR,URINE YELLOW; GLUCOSE, URINE (UA) NEGATIVE (NEGATIVE); KETONES,URINE NEGATIVE (NEGATIVE); LEUKOCYTE ESTERASE ,URINE 3+ (NEGATIVE); NITRITE,URINE NEGATIVE (NEGATIVE); PH,URINE 6.5 (5-9); PROTEIN,URINE NEGATIVE (NEGATIVE)
[2019-12-16 07:54] LABS: BACTERIA,URINE LARGE /HPF; RBC,URINE RARE /HPF; SQUAMOUS EPITHELIAL CELL,UR 25-50 /HPF; WBC,URINE >100 /HPF
--- NOTE | 2019-12-16 08:46 | NUR ---
DR. CARVER NOTIFIED OF PT'S UA RESULTS. ORDERS RECEIVED FOR MACROBID [id number] MB BID X 7 DAYS.
--- NOTE | 2019-12-16 08:46 | NUR ---
DR. CARVER ALSO NOTIFIED OF AN OCC CTX AND THIS RN HAVING PT DRINK WATER.
[2019-12-16 09:05] VITALS: BP 119/59
[2019-12-16] MEDS ORDERED: NITR-65 PO (09:16)
--- NOTE | 2019-12-16 09:20 | NUR ---
DISCHARGE PAPERS PROVIDED AND REVIEWED WITH PT PER Debbie FERNANDEZ RN. PT VERBALIZES UNDERSTANDING. PAPER SIGNED.
--- NOTE | 2019-12-16 09:30 | NUR ---
PT DISCHARGED FROM [facility] TO [facility]ERSONAL [facility] VIA AMBULATORY IN STABLE CONDITION.
--- NOTE | 2019-12-17 07:59 | Physician Query-Final Dx ---
Clinic Account Progress/Dx Physician Query: Please give diagnosis Please include # weeks gestation Date of Service Dec 16, 2019 at 07:01 NEO PHILLIPS Dec 17, 2019 07:59
== END 2019-12-16 09:30 | disposition home or self-care (01) ==
LOC: LDRP 07:01 → WSo 07:01
PROVIDERS: ATTEND Family Medicine
DX: O36.8120 Decreased fetal movements, second trimester, not applicable or unspecified (principal); Z3A.26 26 weeks gestation of pregnancy
CPT/HCPCS: 81000; 87088; 99213

== ENCOUNTER 2020-02-20 18:38 | Outpatient (CLI) | payer BC ==
[~2020-02-20] VITALS: Ht 154.9 cm; Wt 75.9 kg
--- NOTE | 2020-02-20 18:52 | NUR ---
DIONTE HACKETT presented to unit via from ED, accompanied by S/O, with c/o POSSIBLE WATER BREAK. DIONTE HACKETT weighed, gowned, voided, and to bed. EFHM and TOCO applied, VS taken. DIONTE HACKETT oriented to bed controls, call light, TV, heat, and A/C controls.
[2020-02-20 19:15] VITALS: BP 124/75
[2020-02-20 19:37] LABS: BILIRUBIN,URINE NEGATIVE (NEGATIVE); CLARITY,URINE SL CLOUDY; COLOR,URINE YELLOW; GLUCOSE, URINE (UA) NEGATIVE (NEGATIVE); KETONES,URINE NEGATIVE (NEGATIVE); LEUKOCYTE ESTERASE ,URINE 3+ (NEGATIVE); NITRITE,URINE NEGATIVE (NEGATIVE); PROTEIN,URINE NEGATIVE (NEGATIVE)
[2020-02-20 19:45] LABS: BACTERIA,URINE MODERATE /HPF; WBC,URINE 25-50 /HPF
[2020-02-20] MEDS ORDERED: cefTRIAXone FOR IV USE 1,000 MG in WATER (STERILE) FOR INJECTION 10 ML IV ONE (20:30)
[2020-02-20] MEDS ORDERED: LACTATED RINGERS 1,000 ML IV ONE (20:30)
[2020-02-20] MEDS ORDERED: WATER (STERILE) FOR INJECTION 10 ML ONE (20:55)
[2020-02-20] MEDS ORDERED: cefTRIAXone 1,000 MG IV (ROCEPHIN) VIAL ONE (20:55)
[2020-02-20] MEDS ORDERED: fentaNYL INJECTION 100 MCG/2 ML AMP ONE (22:55)
[2020-02-20] MEDS ORDERED: D5 LR IV SOLUTION 1,000 ML IV ONE (22:55)
[2020-02-20 23:06] VITALS: BP 130/85
[2020-02-20] MEDS: D5 LR IV SOLUTION 1,000 ML IV SCH (23:06)
[2020-02-20] MEDS: fentaNYL INJECTION 100 MCG/2 ML AMP IVP PRN (23:06)
[2020-02-21] MEDS: fentaNYL INJECTION 100 MCG/2 ML AMP IVP PRN ×2 (01:31→05:38)
[2020-02-21 02:09] VITALS: BP 130/80
[2020-02-21] MEDS ORDERED: ONDANSETRON 4 MG/2 ML (SDV) Z0FRAN ONE (02:25)
[2020-02-21] MEDS ORDERED: ONDANSETRON 4 MG/2 ML (SDV) Z0FRAN IVP PRN (02:45)
[2020-02-21 04:37] VITALS: BP 121/80
[2020-02-21] MEDS: D5 LR IV SOLUTION 1,000 ML IV SCH (06:52)
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
[2020-02-21 11:15] LABS: BASOPHILS % (AUTO) 0 % (0-10); EOSINOPHILS # (AUTO) 0.1 10^3/uL (0.0-0.3); EOSINOPHILS % (AUTO) 1 % (0-10); HEMATOCRIT 34 % (35-52); HEMOGLOBIN 10.7 G/DL (11.5-16.0); LYMPHOCYTES # (AUTO) 2.3 X 10^3 (1.0-4.0); LYMPHOCYTES % (AUTO) 22 % (12-44); MEAN CORPUSCULAR HEMOGLOBIN 26 PG (25-34); MEAN CORPUSCULAR HGB CONC 32 G/DL (32-36); MEAN CORPUSCULAR VOLUME 81 FL (80-99); MEAN PLATELET VOLUME 9.7 FL (7.4-10.4); MONOCYTES # (AUTO) 0.8 X 10^3 (0.0-1.0); MONOCYTES % (AUTO) 8 % (0-12); NEUTROPHILS % (AUTO) 69 % (42-75); PLATELET COUNT 270 10^3/uL (130-400); RED CELL DISTRIBUTION WIDTH 13.1 % (10.0-14.5); WHITE BLOOD COUNT 10.2 10^3/uL (4.3-11.0)
[2020-02-21 13:20] VITALS: BP 133/80
--- NOTE | 2020-02-21 13:40 | NUR ---
dr ball notified of current c/o, vitals and lab results.
[2020-02-21] MEDS ORDERED: ACETAMINOPHEN 500 MG TAB (TYLENOL) PO NR (14:00)
--- NOTE | 2020-02-21 14:05 | NUR ---
out of WS to home self care via ambulation to private vehicle with labor precautions and new RX.
== END 2020-02-21 14:05 | disposition home or self-care (01) ==
LOC: WSo 18:38 → LDRP 18:41 → WSo 02-21 14:05
PROVIDERS: ATTEND Family Medicine
DX: O23.43 Unspecified infection of urinary tract in pregnancy, third trimester (principal); Z3A.36 36 weeks gestation of pregnancy
CPT/HCPCS: 36415; 81000; 85025; 87088; 96361; 96374; 96375; 96376; 99214

== ENCOUNTER 2020-02-23 21:19 | Outpatient (CLI) | payer BC ==
[~2020-02-23] VITALS: Ht 154.9 cm; Wt 78.0 kg
--- NOTE | 2020-02-23 21:28 | NUR ---
DIONTE HACKETT presented to unit via from ED, accompanied by SO, with c/o CONTRACTIONS. DIONTE HACKETT weighed, gowned, voided, and to bed. EFHM and TOCO applied, VS taken. DIONTE HACKETT oriented to bed controls, call light, TV, heat, and A/C controls. ASSESSMENTS TO FOLLOW PER THIS RN.
--- NOTE | 2020-02-23 22:06 | NUR ---
Dr. King called with report of pt. Informed that pt complains of contractions. Rates pain of contractions at a 3. SVE 3cm, 50%, and high. Informed that pt is jovan every 2.5-3 minutes. Contractions palpate mild. orders that pt can be rechecked around the hour jodee and to let him know urine results when they come back. If no change, pt can go home.
[2020-02-23 22:23] LABS: BILIRUBIN,URINE NEGATIVE (NEGATIVE); CLARITY,URINE CLEAR; COLOR,URINE YELLOW; GLUCOSE, URINE (UA) NEGATIVE (NEGATIVE); KETONES,URINE NEGATIVE (NEGATIVE); LEUKOCYTE ESTERASE ,URINE 1+ (NEGATIVE); NITRITE,URINE NEGATIVE (NEGATIVE); PROTEIN,URINE NEGATIVE (NEGATIVE)
[2020-02-23 22:29] VITALS: BP 116/63
[2020-02-23 22:30] VITALS: BP 116/63
[2020-02-23 22:32] LABS: BACTERIA,URINE TRACE /HPF
--- NOTE | 2020-02-23 22:45 | NUR ---
Dr. King called with urine results and recheck. orders that pt may go home and to keep appointment in the morning. Pt. should finish antibiotics.
--- NOTE | 2020-02-23 23:01 | NUR ---
Discharge instructions reviewed with pt. Pt. told to continue at home medications and to keep morning appointment with Dr. Pt. has no questions or complaints at this time. Pt. walks off floor with at side. No s/s of distress.
[2020-02-23 23:12] VITALS: BP 114/69
--- NOTE | 2020-02-24 11:01 | Physician Query-Final Dx ---
NEO PHILLIPS 02/24/20 1101: Clinic Account Progress/Dx Physician Query: Please give diagnosis Please include # weeks gestation Date of Service February 23, 2020 at 21:19 ASUNCION CARVER MD 02/25/20 0717: Clinic Account Progress/Dx DIAGNOSIS: Diagnosis 1. IUP at 36 weeks 2. Uterine irritability 3. UTI NEO PHILLIPS February 24, 2020 11:01 ASUNCION CARVER MD February 25, 2020 07:17
== END 2020-02-23 23:01 ==
LOC: WSo 21:19 → LDRP 21:20 → WSo 23:01
PROVIDERS: ATTEND Family Medicine
DX: O62.4 Hypertonic, incoordinate, and prolonged uterine contractions (principal)
CPT/HCPCS: 81000; 99213

== ENCOUNTER 2020-03-15 06:00 | Inpatient (IN) | payer BC ==
[~2020-03-15] VITALS: Ht 154.9 cm; Wt 77.4 kg
[2020-03-15] VITALS (36 sets, daily range): BP systolic 93–160; BP diastolic 52–90
--- NOTE | 2020-03-15 06:13 | NUR ---
DIONTE HACKETT presented to unit via from ED, accompanied by , for INDUCTION. DIONTE HACKETT weighed, gowned, voided, and to bed. EFHM and TOCO applied, VS taken. DIONTE HACKETT oriented to bed controls, call light, TV, heat, and A/C controls.
[2020-03-15] MEDS ORDERED: OXYTOCIN PRE-MIX DRIP 500 ML IV SCH ×3 (06:19→13:20)
[2020-03-15] MEDS ORDERED: D5 LR IV SOLUTION 1,000 ML IV SCH (06:19)
[2020-03-15] MEDS ORDERED: MINERAL OIL CONCENTRATE 99.9% 15 ML UDC TOP PRN (06:30)
[2020-03-15 06:34] LABS: BILIRUBIN,URINE NEGATIVE (NEGATIVE); CLARITY,URINE CLEAR; COLOR,URINE YELLOW; GLUCOSE, URINE (UA) NEGATIVE (NEGATIVE); KETONES,URINE NEGATIVE (NEGATIVE); LEUKOCYTE ESTERASE ,URINE 2+ (NEGATIVE); NITRITE,URINE NEGATIVE (NEGATIVE); PH,URINE 6.5 (5-9); PROTEIN,URINE NEGATIVE (NEGATIVE)
[2020-03-15 06:41] LABS: BACTERIA,URINE FEW /HPF; SQUAMOUS EPITHELIAL CELL,UR 0-2 /HPF
[2020-03-15] MEDS ORDERED: D5 LR IV SOLUTION 1,000 ML IV ONE (06:41)
[2020-03-15 06:57] LABS: BASOPHILS # (AUTO) 0.1 10^3/uL (0.0-0.1); BASOPHILS % (AUTO) 1 % (0-10); EOSINOPHILS # (AUTO) 0.1 10^3/uL (0.0-0.3); EOSINOPHILS % (AUTO) 1 % (0-10); HEMATOCRIT 34 % (35-52); LYMPHOCYTES # (AUTO) 2.9 X 10^3 (1.0-4.0); LYMPHOCYTES % (AUTO) 28 % (12-44); MEAN CORPUSCULAR HEMOGLOBIN 25 PG (25-34); MEAN CORPUSCULAR HGB CONC 32 G/DL (32-36); MEAN CORPUSCULAR VOLUME 78 FL (80-99); MEAN PLATELET VOLUME 10.5 FL (7.4-10.4); MONOCYTES # (AUTO) 0.9 X 10^3 (0.0-1.0); MONOCYTES % (AUTO) 8 % (0-12); NEUTROPHILS # (AUTO) 6.6 X 10^3 (1.8-7.8); NEUTROPHILS % (AUTO) 63 % (42-75); PLATELET COUNT 246 10^3/uL (130-400); RED CELL DISTRIBUTION WIDTH 13.9 % (10.0-14.5); WHITE BLOOD COUNT 10.5 10^3/uL (4.3-11.0)
[2020-03-15] MEDS ORDERED: OXYTOCIN PRE-MIX DRIP 500 ML IV ONE (07:02)
--- NOTE | 2020-03-15 07:06 | History & Physical-OB ---
OB - Chief Complaint & HPI Date/Time Date of Admission: Date of Admission: Mar 15, 2020 at 06:06 Date seen by a Provider: Mar 15, 2020 Time Seen by a Provider: 06:50 Chief Complaint/History OB-Reason for Admission/Chief: Induction of Labor Hx : 2 Hx Para: 1 Expected Date of Delivery: Mar 20, 2020 Gestational Age in Weeks: 39 Gestational Age in Days: 2 Admission Nurse Assessment Rev: Yes History of Labs GBS negative Allergies and Home Medications Allergies Coded Allergies: hydrocodone (Verified Allergy, Intermediate, 12/15/12) codeine (Unverified Allergy, Unknown, 11/29/14) Home Medications Nitrofurantoin Monohyd/M-Cryst 100 Mg Capsule, 1 TAB PO BID Prescribed by: IRA FERNANDEZ on 12/16/19 0916 Patient Home Medication List Home Medication List Reviewed: Yes OB - History Hx of Present Care: Yes Ultrasounds: Normal mid trimester US Obstetrical Complications: None Medical Complications: None Delivery History Hx Blood Disorders: No Adverse Rxn to Tranfusion: No Patient Past Medical History No chronic medical problems Social History/Family History HIV/AIDS: No Sexually Transmitted Disease: No 2nd Hand Smoke Exposure: No Immunizations Hepatitis A: Yes Hepatitis B: Yes Tetanus Booster (TDap): Unknown Date of Influenza Vaccine: Jul 17, 2020 OB - Admission Exam Physical Exam HEENT: Moist Membranes Heart: Rhythm Normal Lungs: Clear Abdomen: Gravid Extremities: Normal Cervical Dilatation: 3cm Effacement: 50% Station: -3 Membranes: Intact Heart Rate: 140's Accelerations: Accelerations Present Short Term Variability: Present Contractions on Admission: >10 Minutes Apart Intensity: Mild Torres Scoring Tool (Modified) Dilation (cm): 3-4cm (2) Effacement (%): 31-51% (1) Descent/Station: -3 (0) Cervix Consistency: Medium(1) Cervix Position: Middle/Mid-Position (1) Add 1 point for: Each previous vaginal delivery (1) Torres Score: 6 Labs Laboratory Tests Test 03/15/20 06:25 03/15/20 06:40 Range/Units Urine Color YELLOW Urine Clarity CLEAR Urine pH 6.5 5-9 Urine Specific [place] 1.010 L 1.016-1.022 Urine Protein NEGATIVE NEGATIVE Urine Glucose (UA) NEGATIVE NEGATIVE Urine Ketones NEGATIVE NEGATIVE Urine Nitrite NEGATIVE NEGATIVE Urine Bilirubin NEGATIVE NEGATIVE Urine Urobilinogen 0.2 < = 1.0 MG/DL Urine Leukocyte Esterase 2+ H NEGATIVE Urine RBC (Auto) NEGATIVE NEGATIVE Urine RBC NONE /HPF Urine WBC 10-25 H /HPF Urine Squamous Epithelial Cells 0-2 /HPF Urine Crystals NONE /LPF Urine Bacteria FEW H /HPF Urine Casts NONE /LPF Urine Mucus SMALL H /LPF Urine Culture Indicated YES White Blood Count 10.5 4.3-11.0 10^3/uL Red Blood Count 4.41 4.35-5.85 10^6/uL Hemoglobin 11.0 L 11.5-16.0 G/DL Hematocrit 34 L 35-52 % Mean Corpuscular Volume 78 L 80-99 FL Mean Corpuscular Hemoglobin 25 25-34 PG Mean Corpuscular Hemoglobin Concent 32 32-36 G/DL Red Cell Distribution Width 13.9 10.0-14.5 % Platelet Count 246 130-400 10^3/uL Mean Platelet Volume 10.5 H 7.4-10.4 FL Neutrophils (%) (Auto) 63 42-75 % Lymphocytes (%) (Auto) 28 12-44 % Monocytes (%) (Auto) 8 0-12 % Eosinophils (%) (Auto) 1 0-10 % Basophils (%) (Auto) 1 0-10 % Neutrophils # (Auto) 6.6 1.8-7.8 X 10^3 Lymphocytes # (Auto) 2.9 1.0-4.0 X 10^3 Monocytes # (Auto) 0.9 0.0-1.0 X 10^3 Eosinophils # (Auto) 0.1 0.0-0.3 10^3/uL Basophils # (Auto) 0.1 0.0-0.1 10^3/uL OB - Assessment/Plan/Diagnosis Assessment Assessment: induction of labor Admission Dx 1. IUP at 39 weeks Admission Status: Inpatient Order (span 2 midnights) Reason for Inpatient Admission: Induction of Labor Plan Plan: Induction Induction Method: AROM Other Plan -pitocin as necessary ASUNCION CARVER MD Mar 15, 2020 07:06
[2020-03-15] MEDS ORDERED: BUTORPHANOL INJ 2 MG/ML (STADOL) VIAL IV PRN (07:15)
[2020-03-15] MEDS ORDERED: fentaNYL 2 mcg/ml BUPIVA 0.125 100 ML ONE (09:02)
--- NOTE | 2020-03-15 09:15 | NUR ---
anesthesia notified of epidural request.
[2020-03-15] MEDS ORDERED: fentaNYL INJECTION 100 MCG/2 ML AMP ONE (09:19)
[2020-03-15] MEDS ORDERED: BUPIVACAINE 0.25% 30 ML (SENSORCAINE) VIAL ONE (09:19)
--- NOTE | 2020-03-15 09:29 | NUR ---
ALBERT Mueller here for epidural placement. Procedure explained, consent reviewed and signed by anesthesia. Questions answered to patient's satisfaction. Time out taken to verify correct patient/procedure. 0936- Patient up to side of bed, assisted into sitting position. Betadine prep done x3 and sterile drape applied. 0940- Local done, see anesthesia record. 0945-Test dose given, see anesthesia record for drug and dosage. 0944-Epidural catheter secured in place. Epidural placement complete. 0951-Assisted back into bed, monitors adjusted. Epidural dosed, see anesthesia record. Epidural of Sufenta/Fentanyl @10cc/hr stated per pump. Patient tolerated procedure well.
[2020-03-15] MEDS ORDERED: LACTATED RINGERS 1,000 ML IV ONE (09:57)
[2020-03-15] MEDS ORDERED: fentaNYL 2 mcg/ml BUPIVA 0.125 100 ML IV SCH (09:57)
[2020-03-15] MEDS ORDERED: CATHETER FLUSH 10 ML SYR IV PRN (10:00)
[2020-03-15] MEDS ORDERED: EPIDURAL (fentaNYL 2 MCG/ML BUPIVA 0.125%)100 ML BAG EPI SCH (10:00)
[2020-03-15] MEDS ORDERED: NALOXONE 0.4 MG/ML 1 ML (NARCAN) VIAL IV PRN (10:00)
--- NOTE | 2020-03-15 10:29 | NUR ---
was called with SVE update.
--- NOTE | 2020-03-15 11:04 | NUR ---
was called with SVE update. no new orders received.
--- NOTE | 2020-03-15 13:25 | OB Labor & Delivery Record ---
L&D History Date of Service Date of Service: Mar 15, 2020 History Expected Date of Delivery: Mar 20, 2020 Gestational Age in Weeks: 39 Hx : 2 Hx Para: 2 Complications Events: Routine care Operative Indications (Cesarea: N/A-Vaginal Delivery Intrapartal Events: None L&D Stage1 Stage One Onset of Labor - Date: Mar 15, 2020 Onset of Labor - Time: 06:50 Monitors and Tracing Monitor Mode: Internal Heart Rate: 140 Monitor Accelerations: Uniform Monitor Decelerations: None Station: 0 Filer And Sander Variability: Average (6-10) Short Term Variability: Present Presentation: Vertex Vital Signs VS - Last 72 Hours, by Label 03/15/20 03/15/20 03/15/20 03/15/20 07:15 07:20 07:30 07:45 Temp 36.6 Pulse 90 98 76 115 Resp 18 18 18 18 B/P (MAP) 122/83 (96) 124/75 (91) 110/81 (91) Pulse Ox 98 O2 Delivery Room Air Room Air Room Air Room Air 03/15/20 03/15/20 03/15/20 03/15/20 08:00 08:15 08:30 08:45 Temp 35.3 Pulse 100 92 77 Resp 18 18 18 18 B/P (MAP) 98/66 (77) 113/81 (92) 128/83 (98) O2 Delivery Room Air Room Air Room Air Room Air 03/15/20 03/15/20 03/15/20 03/15/20 09:00 09:15 09:30 09:35 Pulse 87 71 74 74 Resp 18 18 18 18 B/P (MAP) 129/63 (85) 131/66 (87) 160/86 (110) 143/81 (101) Pulse Ox 100 O2 Delivery Room Air Room Air Room Air Room Air 03/15/20 03/15/20 03/15/20 03/15/20 09:40 09:45 09:50 09:55 Pulse 70 76 93 102 Resp 18 18 18 18 B/P (MAP) 158/90 (112) 132/83 (99) 93/53 (66) 97/52 (67) Pulse Ox 100 99 100 98 O2 Delivery Room Air Room Air Room Air Room Air 03/15/20 03/15/20 03/15/20 03/15/20 10:00 10:05 10:10 10:15 Pulse 90 84 90 79 Resp 18 18 18 18 B/P (MAP) 99/55 (70) 102/55 (71) 104/64 (77) 112/68 (83) Pulse Ox 99 98 100 100 O2 Delivery Room Air Room Air Room Air Room Air 03/15/20 03/15/20 03/15/20 03/15/20 10:30 10:45 11:00 11:15 Pulse 104 80 72 68 Resp 18 18 18 18 B/P (MAP) 113/75 (88) 116/60 (78) 127/77 (94) 136/77 (96) Pulse Ox 100 100 100 92 O2 Delivery Room Air Room Air Room Air Room Air 03/15/20 11:30 Temp 36.4 Pulse 79 Resp 18 B/P (MAP) 122/77 (92) Pulse Ox 100 O2 Delivery Room Air Signs of Distress by FHT Signs of Distress no Rupture of Membranes Spontaneous Ruture of Membrane: No Amniotic Membrane Rupture Time: 0655 Amniotic Membrane Fluid Desc.: Clear Induction/Anesthesia Epidural Cath Placement - Time: 09:50 L&D Stage2 Stage Two Stage II Date: Mar 15, 2020 Stage II Time: 12:22 Monitors and Tracing Monitor Mode: Internal Heart Rate: 140 Monitor Accelerations: Uniform Monitor Decelerations: Variable Filer And Sander Variability: Average (6-10) Short Term Variability: Present Position: Right Occiput Posterior Presentation: Vertex Signs of Distress by FHT Signs of Distress no Cord Descript/Complications Cord Vessel Description: 3 Vessels Delivery Type Infant Delivery Method: Spontaneous Vaginal Anterior Shoulder: Right Episiotomy/Perineal Laceration Laceraction(s)/Extensions: Yes Episiotomy Description: Midline (and no extensions) Sutures Used: Vicryl Condition of Delivery 1 minute Comment: 8 5 minute Comment: 9 Condition of Infant Condition of : Living Exam: No Observed Abnormalities Resuscitation Resuscitation: N/A - Spontaneous Resp L&D Stage3 Stage Three Stage III Date: Mar 15, 2020 Stage III Time: 12:27 Pictocin Pitocin Administration mu/min: 8 Pitocin ml/hr: 8 Pitocin Administration Comment: pitocin increased per protocol Placenta Delivery Placenta Delivery: Spontaneous Delivery Summary Summary Estimated blood loss (mL): 250 Condition of Delivery Examined: Cervix Examined Post Hemorrhage: No Intervention Required none ASUNCION CARVER MD Mar 15, 2020 13:25
[2020-03-15] MEDS ORDERED: TETANUS,DIPTH,PERTUSS P/F (BOOSTRIX) 0.5 ML VIAL IM ONE (13:30)
[2020-03-15] MEDS ORDERED: BENZOCAINE/MENTHOL (DERMOPLAST) 60 ML CAN TP PRN (13:30)
[2020-03-15] MEDS ORDERED: MEASLES,MUMPS,RUBELLA 1 EA INJ SQ ONE (13:30)
[2020-03-15] MEDS ORDERED: CATHETER FLUSH 10 ML SYR IV SCH ×2 (14:00)
[2020-03-15] MEDS: WITCH HAZEL(TUCKS) 40 EA JAR TOP PRN (14:50)
[2020-03-15] MEDS: IBUPROFEN 600 MG (MOTRIN) TAB PO SCH ×2 (14:50→21:01)
--- NOTE | 2020-03-15 14:50 | NUR ---
FFu/0. moderate rubra noted. no clots expressed. hank-care offered. perineal edema noted. Dermaplast and Tucks pads applied. mesh panties in place. pt transferred to room 310 via w/c with this RN, infant and s/o @ side. familiarized with room surroundings. call light within reach.
--- NOTE | 2020-03-15 15:00 | NUR ---
up to BR. unable to void. hank-care instructions given, returned demonstration.
--- NOTE | 2020-03-15 15:15 | NUR ---
report given to CHARO Michel. care assumed of pt.
[2020-03-15] MEDS: ACETAMINOPHEN 500 MG TAB (TYLENOL) PO SCH (18:25)
[2020-03-15] MEDS ORDERED: ONDANSETRON 4 MG (ZOFRAN) ORAL DISSOLVE TAB ONE (20:58)
[2020-03-15] MEDS: DOCUSATE SODIUM 100 MG (COLACE) CAP PO SCH (21:01)
[2020-03-15] MEDS ORDERED: ONDANSETRON 4 MG (ZOFRAN) ORAL DISSOLVE TAB SL ONE (21:12)
[2020-03-16] MEDS: ACETAMINOPHEN 500 MG TAB (TYLENOL) PO SCH ×4 (00:48→20:17)
[2020-03-16] MEDS: IBUPROFEN 600 MG (MOTRIN) TAB PO SCH ×4 (03:36→22:13)
[2020-03-16] MEDS: WITCH HAZEL(TUCKS) 40 EA JAR TOP PRN (03:36)
[2020-03-16 05:43] LABS: BASOPHILS % (AUTO) 0 % (0-10); EOSINOPHILS # (AUTO) 0.2 10^3/uL (0.0-0.3); EOSINOPHILS % (AUTO) 2 % (0-10); HEMATOCRIT 28 % (35-52); HEMOGLOBIN 8.9 G/DL (11.5-16.0); LYMPHOCYTES # (AUTO) 3.7 X 10^3 (1.0-4.0); LYMPHOCYTES % (AUTO) 26 % (12-44); MEAN CORPUSCULAR HEMOGLOBIN 25 PG (25-34); MEAN CORPUSCULAR HGB CONC 32 G/DL (32-36); MEAN CORPUSCULAR VOLUME 79 FL (80-99); MEAN PLATELET VOLUME 10.2 FL (7.4-10.4); MONOCYTES # (AUTO) 0.8 X 10^3 (0.0-1.0); MONOCYTES % (AUTO) 6 % (0-12); NEUTROPHILS # (AUTO) 9.5 X 10^3 (1.8-7.8); NEUTROPHILS % (AUTO) 66 % (42-75); PLATELET COUNT 199 10^3/uL (130-400); RED CELL DISTRIBUTION WIDTH 13.8 % (10.0-14.5); WHITE BLOOD COUNT 14.3 10^3/uL (4.3-11.0)
--- NOTE | 2020-03-16 07:09 | Discharge Summary ---
Diagnosis/Chief Complaint Date of Admission Mar 15, 2020 at 06:06 Date of Discharge March 16, 2020 Discharge Date: Mar 16, 2020 Discharge Time: 14:00 Admission Diagnosis Admission Diagnosis 1. Intrauterine at 39 weeks gestation Discharge Diagnosis 1. Intrauterine at 39 weeks gestation 2. Anemia due to acute blood loss from delivery Reason Hospital Visit 24-year-old 2 now term 2 who initially presented to labor and delivery in the morning of March 15, 2020 for induction of labor at 39 weeks 2 days gestation. Her care was essentially uncomplicated. She had admitted to occasional contraction upon presentation. Her EDC was listed as March 20, 2020. Her GBS status was negative. eks. Discharge Summary-OBS Procedures 1. Epidural per anesthesia 2. Spontaneous vaginal delivery 3. Repair of midline episiotomy Discharge Physical Examination Allergies: Coded Allergies: hydrocodone (Verified Allergy, Intermediate, 12/15/12) codeine (Unverified Allergy, Unknown, 11/29/14) Vitals & I&Os Vital Signs Date Time Temp Pulse Resp B/P (MAP) Pulse Ox O2 Delivery O2 Flow Rate FiO2 03/15/20 14:30 36.5 78 18 116/65 (82) Room Air 03/15/20 11:45 97 General Appearance: No Acute Distress Respiratory: Clear to Auscultation Cardiovascular: Regular Rate Abdominal: Soft (Uterus firm) Skin: No Rashes Neuro: Normal Speech Hospital Course Following admission patient underwent routine labor orders. She underwent artificial rupture of membranes followed by Pitocin. She received epidural per anesthesia and tolerated well. Ultimately she went on to completion and delivered a term viable female. delivered at 1222 on March 15, 2020. Her Apgars were noted to be 8 at 1 minute and 9 at 5 minutes. Patient had a midline episiotomy that was repaired with 3-0 Vicryl. Following delivery patient underwent routine care orders. She had no complications during the remainder of hospital stay. Her hemoglobin in the morning of March 16, 2020 was 8.9 and this was compared to 11 on admission. She was asymptomatic without any dizziness or lightheadedness. She tolerated regul ar diet and was ambulatory. She denies any chest pain or leg pain. She was eager for dismissal during the afternoon of March 16, 2020. She will follow-up in 6 weeks. Pending Labs Laboratory Tests 03/16/20 05:27: White Blood Count 14.3, Red Blood Count 3.58, Hemoglobin 8.9, Hematocrit 28, Mean Corpuscular Volume 79, Mean Corpuscular Hemoglobin 25, Mean Corpuscular Hemoglobin Concent 32, Red Cell Distribution Width 13.8, Platelet Count 199, Mean Platelet Volume 10.2, Neutrophils (%) (Auto) 66, Lymphocytes (%) (Auto) 26, Monocytes (%) (Auto) 6, Eosinophils (%) (Auto) 2, Basophils (%) (Auto) 0, Neutrophils # (Auto) 9.5, Lymphocytes # (Auto) 3.7, Monocytes # (Auto) 0.8, Eosinophils # (Auto) 0.2, Basophils # (Auto) 0.0 Discharge Instructions to patient/family Please see electronic discharge instructions given to patient. Discharge Medications Reviewed and agree with Discharge Medication list on patient's Discharge Inst ruction sheet Clinical Quality Measures DVT/VTE Risk/Contraindication: Risk Factor Score Per Nursin RFS Level Per Nursing on Admit: 1=Low/No VTE PPX ASUNCION CARVER MD Mar 16, 2020 07:09
[2020-03-16] MEDS ORDERED: IBUP-844 PO (07:11)
--- NOTE | 2020-03-16 07:13 | Discharge Inst-Women's Service ---
Discharge Inst-Women's Serv Depart Medication/Instructions New, Converted or Re-Newed RX: Transmitted to Pharmacy ([facility]) Instructions May also utilize Tylenol in between ibuprofen if necessary. Continue with vitamin for the next one month. Problems Reviewed?: Yes Consults/Follow Up Additional Follow Up: Yes (Dr. Carver in 6 weeks) Activity Activity: Activity as Tolerated Driving Instructions: No Driving for 1 Week Nothing Inside Vagina: No [place] (For 6 weeks) Diet Discharge Diet: Regular Diet Return to The Hospital For: As below Symptoms to Report to : Swelling Increased, Bleeding Excessive, Fever Over 101 Degrees F, Vaginal Discharge Foul For Any Problems or Questions: Contact Your Physician ASUNCION CARVER MD Mar 16, 2020 07:13
--- NOTE | 2020-03-16 07:20 | NUR ---
REPORT RECEIVED FROM FELICIANO VILLAGRAN RN.
[2020-03-16] MEDS ORDERED: DIBUCAINE (NUPERCAINAL) 1% OINT 30 GM ONE (07:36)
[2020-03-16 08:15] VITALS: BP 116/78
--- NOTE | 2020-03-16 08:15 | NUR ---
A.M. ASSESSMENT COMPLETED. VSS.
[2020-03-16] MEDS: DOCUSATE SODIUM 100 MG (COLACE) CAP PO SCH ×2 (08:20→20:16)
[2020-03-16] MEDS: DIBUCAINE (NUPERCAINAL) 1% OINT 30 GM TOP PRN (08:23)
--- NOTE | 2020-03-16 08:45 | NUR ---
INFANT TO NURSERYWHILE PT AND S.O. GO TO [place].
--- NOTE | 2020-03-16 08:47 | Anesthesia-Regional Post-Op ---
Regional Patient Condition Mental Status: Alert, Oriented x3 Circulation: Same as Pre-Op Headache: Absent Sensation: Full Recovery Motor Block: Absent Post Op Complications Complications None Follow Up Care/Instructions Patient Instructions None needed. Anesthesia/Patient Condition Patient is doing well, no complaints, stable vital signs, no apparent adverse anesthesia problems. No complications reported per nursing. JAVIER HIRSCH CRNA Mar 16, 2020 08:47
--- NOTE | 2020-03-16 10:00 | NUR ---
CARING FOR INFANT IN ROOM. OFFERS NO COMPLAINTS.
--- NOTE | 2020-03-16 12:30 | NUR ---
HOPING TO GO HOME. UNSURE R/T INFANT. SEE NURSERY NOTES.
[2020-03-16 13:00] VITALS: BP 112/73
--- NOTE | 2020-03-16 13:16 | NUR ---
OXYIR 5MG P.O. FOR C/O CRAMPING AND PERINEAL PAIN.
--- NOTE | 2020-03-16 16:00 | NUR ---
CONTINUES TO CARE FOR . GOOD INTERACTION NOTED.
--- NOTE | 2020-03-16 16:30 | NUR ---
DR. CARVER IN TO SEE PT. PLAN TO KEEP OVERNIGHT. ENCOURAGED TO FEE FORMULA AND PUMP BREASTS.
[2020-03-16 18:10] VITALS: BP 129/87
--- NOTE | 2020-03-16 18:10 | NUR ---
VSS. STATES DOING BETTER WITH MINIMAL PAIN AT THIS TIME. EATING DINNER. S.O. AT BEDSIDE. CARING FOR IN ROOM.
--- NOTE | 2020-03-16 19:30 | NUR ---
LINDA CATH PERFORMED AT THIS TIME. Addendum: 03/17/20 at 0035 by FELICIANO VILLAGRAN RN WRONG PATIENT
[2020-03-16 19:45] VITALS: BP 122/89
--- NOTE | 2020-03-16 19:45 | NUR ---
INITIAL SHIFT ASSESSMENT DONE. PT REPORTS FEELING A HARD OBJECT IN HER ABD ON THE LEFT MIDDLE SIDE AND WANTS ME TO PALPATE IT. UPON LYING DOWN, NO MASS IS FELT WHERE PT STATES THERE WAS ONE. FUNDUS FIRM AND U-1. REASSURANCE GIVEN.
--- NOTE | 2020-03-16 20:10 | NUR ---
SCHEDULED TYLENOL AND COLACE ADMINISTERED. PT DENIES ANY OTHER NEEDS AT THIS TIME.
--- NOTE | 2020-03-16 23:00 | NUR ---
PT CALLS TO REPORT SHE HAS VOIDED. PT FEELS LIKE SHE HAS EMPTIED FAIRLY WELL. BLADDER SCAN PERFORMED AND SHOWS A VOLUME OF 124. WILL CONT TO MONITOR. Addendum: 03/17/20 at 0044 by FELICIANO VILLAGRAN RN WRONG PATIENT
[2020-03-17 01:45] VITALS: BP 120/79
--- NOTE | 2020-03-17 01:45 | NUR ---
PT REQUESTS PAIN MEDS. EDUCATED THAT TYLENOL IS DUE IN 30 MIN OR SHE MAY HAVE OXYCODONE. PT REQUESTS TO GO WITH OXYCODONE NOW AND WILL CALL IF TYLENOL IS NEEDED, OTHERWISE WILL REFUSE THE 0230 DOSE.
[2020-03-17] MEDS: DIBUCAINE (NUPERCAINAL) 1% OINT 30 GM TOP PRN (02:31)
--- NOTE | 2020-03-17 03:00 | NUR ---
PT RESTING VERY WELL. SLEEPING IN OPEN CRIB. NOT AWAKENED AT THIS TIME.
[2020-03-17] MEDS: IBUPROFEN 600 MG (MOTRIN) TAB PO SCH (05:54)
--- NOTE | 2020-03-17 06:00 | NUR ---
MOTRIN ADMINISTERED AT THIS TIME. PT DENIES ANY NEEDS OR C/O'S AT THIS TIME.
[2020-03-17 09:00] VITALS: BP 117/83
--- NOTE | 2020-03-17 09:00 | NUR ---
A.M. ASSESSMENT COMPLETED. VSS. CARING FOR IN ROOM.
[2020-03-17] MEDS: ACETAMINOPHEN 500 MG TAB (TYLENOL) PO SCH ×2 (09:27)
[2020-03-17] MEDS: DOCUSATE SODIUM 100 MG (COLACE) CAP PO SCH (09:27)
--- NOTE | 2020-03-17 10:00 | NUR ---
FREIGHT ROUTER IN TO SEE PT. SEE NOTES.
[2020-03-17 11:00] VITALS: BP 117/83
--- NOTE | 2020-03-17 11:00 | NUR ---
DISCHARGE INSTRUCTIONS REVIEWED WITH COPY TO PT. STATES UNDERSTANDING OF ALL INSTRUCTIONS AND NEED TO F/U INSTRUCTED AND NEEDED. DISMISSED AMB FROM WS WITH INFANT TO FAMILY CAR IN STABLE CONDITION ACC BY SPOUSE AND IRA FERNANDEZ RN.
== END 2020-03-17 11:00 | disposition home or self-care (01) | DRG 806 ==
LOC: LDRP 06:06
PROVIDERS: ADMIT Family Medicine; ATTEND Family Medicine
PROC: 10E0XZZ Delivery of Products of Conception, External Approach (ICD-10-PCS; principal; 2020-03-15)
PROC: 0W8NXZZ Division of Female Perineum, External Approach (ICD-10-PCS; 2020-03-15)
PROC: 10907ZC Drainage of Amniotic Fluid, Therapeutic from Products of Conception, Via Natural or Artificial Opening (ICD-10-PCS; 2020-03-15)
DX: O90.81 Anemia of the puerperium (principal); D62 Acute posthemorrhagic anemia; Z3A.39 39 weeks gestation of pregnancy; Z37.0 Single live birth; Z23 Encounter for immunization
CPT/HCPCS: 36415; 81000; 85025; 86850; 86900; 86901; 87088; 90715